=== PATIENT | male | born 1940 | race African-American/Black ===

== ENCOUNTER 2017-11-21 09:55 | Observation (INO) | payer OTHER, MEDICARE ==
--- NOTE | 2017-11-21 10:39 | PDOC ---
History of Present Illness - General Chief Complaint: Chest Pain Stated Complaint: SOB History Source: Patient Exam Limitations: No Limitations - History of Present Illness Initial Comments: 11/21/17 13:06 HPI: This 77-year-old male was brought in by his daughter. She went to go visit her at length parents and he stated that he has had chest pain. She also noticed that he's been noncompliant on taking his medications on and off for the last 2 weeks. The patient lives with his who is wheelchair-bound. He is extremely hard of hearing. When questioned about taking his medications there is some difficulty in returning conversation. He is a poor historian. Daughter states that this is typical for her father. She believes is because he is ignoring her and because of heart hearing. During conversation it is questionable if this is a new onset of mild dementia. There has been no new signs of acute distress. 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 Pt has not been in contact with people who have traveled out of the country, in contact with people who have been ill with fever, n, v, d. SH: smoking use: NONE illicit drug use: NONE alcohol use: NONE Lives with at home, has a daughter that lives in [place] PSH: 2 cardiac stents, CABG 3 Home med use noted on NOV Allergies: NKA Immunizations: PCP: Dr. Caruso Past History - Past Medical History Allergies/Adverse Reactions: Allergies Allergy/AdvReac Type Severity Reaction Status Date / Time No Known Allergies Allergy Verified 11/21/17 10:03 Home Medications: Ambulatory Orders Aspirin 81 mg PO DAILY 03/19/13 Atorvastatin Ca [Lipitor] 40 mg PO HS 03/19/13 Lisinopril [Prinivil] 10 mg PO DAILY 03/19/13 Metoprolol Succinate [Toprol XL -] 25 mg PO BID 03/19/13 Ranitidine [Zantac -] 150 mg PO BID 03/19/13 Clopidogrel Bisulfate [Plavix -] 75 mg PO DAILY 06/07/16 Cardiac Disorders: Yes (carotid "blockage", CABG x3) CVA: Yes (10/2012; residual r arm weakness) COPD: Yes HTN: Yes Hypercholesterolemia: Yes - Surgical History Abdominal Surgery: Yes (PEG tube W/REMOVAL) Cardiac Surgery: Yes (CABG x3;) Neurologic Surgery: Yes (CAROTID STENTS X 2 02/13) - Suicide/Smoking/Psychosocial Hx Smoking Status: Yes Smoking History: Former smoker Have you smoked in the past 12 months: No Number of Cigarettes Smoked Daily: 0 If you are a former smoker, when did you quit?: over 20 years ago Information on smoking cessation initiated: No 'Breaking Loose' booklet given: 06/08/16 Hx Alcohol Use: No Drug/Substance Use Hx: No Substance Use Type: None Hx Substance Use Treatment: No Review of Systems - Review of Systems Able to Perform ROS?: No (General statement: ) Comments:: 11/21/17 13:14 General statement: Patient is a poor historian and this is a difficult ROS to achieve. He does state that he has some chest pain now Skin: Neg for lesions, rash, bruising. Respiratory: Neg SOB or difficulty in breathing Cardiac: + chest pain GI: Neg pain, n/v Neuro: Neg for LOC, weakness, questionable onset of dementia Allergies: Neg for allergies *Physical Exam - Vital Signs Last Vital Signs Temp Pulse Resp BP Pulse Ox 98.3 F 72 19 153/62 97 11/21/17 10:03 11/21/17 10:03 11/21/17 10:03 11/21/17 10:03 11/21/17 10:03 11/21/17 13:15 General Appearance: This 77 yr old male with c/o chest pain appears elderly and poor historian V/S: hemodynamically stable, afebrile Skin: WNL of pt's skin color, no signs of pallor, mottling, cyanosis Head:symmetrical ungs: Chest symmetry equal. Cap refill <3 seconds. Lung sounds clear Cardiac: PMI at R 4MCL space, pos S1 and S2, regular rate. Abdomen: Soft, round, nontender : Not observed Muscularskeletal: appears to not move much and no edema +PMS Neuro: Hard of hearing and some conversation when spoken to but at times does not make sense, not sure if it's not hearring correctly or due to senile? ED Treatment Course - LABORATORY CBC & Chemistry Diagram: 11/21/17 11:42 11/21/17 11:42 Medical Decision Making - Medical Decision Making 11/21/17 13:22 Pt seen and examined with daughter at bedside. She is stating she went to her father's house to drop off food and found him to have chest pain. She also noted he was not taking any of his meds such as plavix. Pt work up included. -lab -EKG -Cardiac work up - UA -CXR 11/21/17 13:26 Laboratory Tests 11/21/17 11/21/17 11:42 11:42 WBC 4.8 D Hgb 12.1 D Hct 36.4 Plt Count 177 Sodium 142 Potassium 3.7 Chloride 104 Carbon Dioxide 29 Anion Gap 9 BUN 14 Creatinine 0.9 Random Glucose 95 D Troponin I 0.02 Pt troponin is negative, Chest pain remains, due to pt significant hx, will admit pt to hospitalist for obs for chest pain work up *DC/Admit/Observation/Transfer Diagnosis at time of Disposition: Chest pain Qualifiers: Chest pain type: other chest pain Qualified Code(s): R07.89 - Other chest pain ; R07.8 - Other chest pain - Discharge Dispostion Condition at time of disposition: Guarded Admit: Yes - Referrals Referrals: Dago Caruso MD [Primary Care Provider] - - Patient Instructions - Post Discharge Activity
[2017-11-21 11:48] LABS: BASO % 0.9 % (0-2.0); EOS % 5.4 % (0-4.5); HEMATOCRIT 36.4 % (35.4-49); HEMOGLOBIN 12.1 GM/dL (11.7-16.9); LYMPH % 19.6 % (8-40); MCH 28.5 pg (25.7-33.7); MCHC 33.1 g/dl (32.0-35.9); MEAN CELL VOLUME 86.2 fl (80-96); MEAN PLT VOLUME 7.7 fl (7.5-11.1); MONO % 10.4 % (3.8-10.2); NEUT % 63.7 % (42.8-82.8); PLATELET COUNT 177 K/MM3 (134-434); RBC 4.23 M/mm3 (4.00-5.60); RDW 14.5 % (11.9-15.9); WHITE BLOOD COUNT 4.8 K/mm3 (4.0-10.0)
--- NOTE | 2017-11-21 11:54 | EKG ---
Test Reason : Blood Pressure : / mmHG Vent. Rate : 085 BPM Atrial Rate : 085 BPM P-R Int : 150 ms QRS Dur : 110 ms QT Int : 398 ms P-R-T Axes : 082 -58 080 degrees QTc Int : 473 ms SINUS RHYTHM WITH SINUS ARRHYTHMIA WITH FREQUENT PREMATURE VENTRICULAR COMPLEXES INCOMPLETE RIGHT BUNDLE BRANCH BLOCK LEFT ANTERIOR FASCICULAR BLOCK ANTEROSEPTAL INFARCT (CITED ON OR BEFORE 19-MAR-2013) ABNORMAL ECG WHEN COMPARED WITH ECG OF 07-JUN-2016 16:55, PREMATURE VENTRICULAR COMPLEXES ARE NOW PRESENT VENT. RATE HAS INCREASED BY 34 BPM Confirmed by LILO NIEVES, JULIANO ([id number]) on 11/21/2017 11:54:09 AM Referred By: Confirmed By:JULIANO NAGY MD
[2017-11-21 11:55] LABS: URINE APPEARANCE CLEAR; URINE BILIRUBIN NEGATIVE (NEGATIVE); URINE BLOOD NEGATIVE (NEGATIVE); URINE COLOR YELLOW; URINE GLUCOSE (UA) NEGATIVE (NEGATIVE); URINE KETONE NEGATIVE (NEGATIVE); URINE LEUK ESTERASE NEGATIVE (NEGATIVE); URINE NITRITE NEGATIVE (NEGATIVE); URINE PROTEIN NEGATIVE (NEGATIVE)
[2017-11-21 12:13] LABS: ALBUMIN 3.6 g/dl (3.4-5.0); ANION GAP 9 (8-16); BILIRUBIN,TOTAL 0.9 mg/dL (0.2-1.0); BLOOD UREA NITROGEN 14 mg/dL (7-18); CALCIUM 8.7 mg/dL (8.5-10.1); CHLORIDE 104 mmol/L (98-107); CO2 29 mmol/L (21-32); CREATININE 0.9 mg/dL (0.7-1.3); GLUCOSE,RANDOM 95 mg/dL (74-106); POTASSIUM 3.7 mmol/L (3.5-5.1); SGPT/ALT 20 U/L (12-78); SODIUM 142 mmol/L (136-145); TOT PROT 6.4 g/dl (6.4-8.2)
[2017-11-21 12:17] LABS: ALK PHOS 66 U/L (45-117); SGOT/AST 22 U/L (15-37)
[2017-11-21] MEDS ORDERED: ATORVASTATIN CA 40 MG TABLET (FP) PO ONE (13:28)
[2017-11-21] MEDS ORDERED: LISINOPRIL 10 MG TABLET (FP) PO ONE (13:28)
[2017-11-21] MEDS ORDERED: ASPIRIN 325 MG ENTERIC COATED TABLET (FP) PO ONE (13:28)
[2017-11-21] MEDS ORDERED: CLOPIDOGREL BISULFATE 75 MG TABLET (FP) PO ONE (13:28)
[2017-11-21] MEDS ORDERED: ATORVASTATIN CA 40 MG TABLET (FP) ONE (14:49)
[2017-11-21] MEDS ORDERED: ASPIRIN 325 MG ENTERIC COATED TABLET (FP) ONE (14:49)
[2017-11-21] MEDS ORDERED: LISINOPRIL 5 MG TABLET (FP) ONE (14:51)
[2017-11-21] MEDS ORDERED: CLOPIDOGREL BISULFATE 75 MG TABLET (FP) ONE (14:51)
--- NOTE | 2017-11-21 15:10 | HP ---
CHIEF COMPLAINT: chest pain PCP: Dr. Caruso HISTORY OF PRESENT ILLNESS: 77 y/o M w/PMH of [place] s/p CABG and stents (3 years ago), carotid artery stenosis , CVA w/some R sided weakness (2012), COPD, HTN, HLD presents to the ER for chest pain. Pt is somewhat poor historian. Pt was brought in by daughter who came to check in on him because he has not taken any of his medications for the last "couple of weeks" w/o reason and because he has been having chest pain for the past 2-3 days. Chest pain is rated as a 1/10 and is located in R upper chest wall near clavicle and radiates to R side of head (temporal area) and AGUILERA is rated as 1/10, pain is intermittent, no aggravating or provoking factors, no alleviating factors. Pain does not radiate to arms or jaw but the pain is associated with nausea but pt has not vomited. Pain is not worsened with exertion or walking. He states he's had pains similar to this in the past. He reports having a chronic cough with white sputum that is unchanged. He denies vomiting, fevers, chills, SOB, abd pain, change in urinary or bowel habits, LE swelling, visual changes, hearing changes, sick contacts, recent travel. ER course was notable for: (1) ASA, CXR, EKG (2) (3) Recent Travel: denies PAST MEDICAL HISTORY: [place] s/p CABG and stents (3 years ago), carotid artery stenosis, CVA w/some R sided weakness (2012), COPD, HTN, HLD PAST SURGICAL HISTORY: CABG and stent placement 3 years ago Social History: Smoking: Former tobacco pipe smoker (quit 20+ years ago). No cigarette smoking history Alcohol: denies Drugs: denies Family History: n-c Allergies No Known Allergies Allergy (Verified 11/21/17 10:03) HOME MEDICATIONS: Home Medications Medication Instructions Recorded Aspirin 81 mg PO DAILY 03/19/13 Atorvastatin Ca [Lipitor] 40 mg PO HS 03/19/13 Lisinopril [Prinivil] 10 mg PO DAILY 03/19/13 Metoprolol Succinate [Toprol XL -] 25 mg PO BID 03/19/13 Ranitidine [Zantac -] 150 mg PO BID 07/17/13 Clopidogrel Bisulfate [Plavix -] 75 mg PO DAILY 06/07/16 REVIEW OF SYSTEMS CONSTITUTIONAL: Absent: fever, chills HEENT: Absent: hearing changes, visual changes CARDIOVASCULAR: +chest pain Absent: lightheadedness, peripheral edema RESPIRATORY: +chronic cough Absent: shortness of breath GASTROINTESTINAL: +nausea Absent: abdominal pain, vomiting, diarrhea, constipation GENITOURINARY: Absent: dysuria NEUROLOGIC: +headache (radiating from R chest wall) Absent: headache PHYSICAL EXAMINATION Vital Signs - 24 hr 11/21/17 11/21/17 10:03 10:30 Temperature 98.3 F Pulse Rate 72 Respiratory 19 Rate Blood Pressure 153/62 O2 Sat by Pulse 97 98 Oximetry (%) GENERAL: Awake, alert, and fully oriented (person, place, and time by president) , in no acute distress. EYES: extraocular movements intact, sclera anicteric, conjunctiva clear. EARS, NOSE, THROAT: Poor dentition. Moist mucous membranes. NECK: Normal range of motion, supple LUNGS: Diminished breath sounds. No wheezing HEART: Distant heart sounds. Regular rate and rhythm, normal S1 and S2. ABDOMEN: Soft, nontender, not distended, normoactive bowel sounds. MUSCULOSKELETAL: 4/5 RUE strength. 5/5 LUE strength. 5/5 b/l LE strength. LOWER EXTREMITIES: warm, well-perfused. No calf tenderness. No peripheral edema. NEUROLOGICAL: Normal speech. Sensation to light touch intact and equal on face, b/l UE, b/l LE PSYCHIATRIC: Cooperative. Good eye contact. Appropriate mood and affect. SKIN: Warm, extremely dry Laboratory Results - last 24 hr 11/21/17 11/21/17 11/21/17 11:42 11:42 11:43 WBC 4.8 D RBC 4.23 Hgb 12.1 D Hct 36.4 MCV 86.2 MCH 28.5 MCHC 33.1 RDW 14.5 Plt Count 177 MPV 7.7 Neutrophils % 63.7 Lymphocytes % 19.6 Monocytes % 10.4 H Eosinophils % 5.4 H Basophils % 0.9 Sodium 142 Potassium 3.7 Chloride 104 Carbon Dioxide 29 Anion Gap 9 BUN 14 Creatinine 0.9 Creat Clearance w eGFR > 60 Random Glucose 95 D Calcium 8.7 Total Bilirubin 0.9 D AST 22 ALT 20 D Alkaline Phosphatase 66 Creatine Kinase 216 Creatine Kinase Index 0.8 CK-MB (CK-2) 1.828 Troponin I 0.02 Total Protein 6.4 Albumin 3.6 Urine Color Yellow Urine Appearance Clear Urine pH 5.0 Ur Specific [place] 1.015 Urine Protein Negative Urine Glucose (UA) Negative Urine Ketones Negative Urine Blood Negative Urine Nitrite Negative Urine Bilirubin Negative Urine Urobilinogen 2.0 Ur Leukocyte Esterase Negative CXR: No acute pathology EKG: Sinus rhythm w/PVCs, incomplete RBBB, Left anterior fasicular block. Ventricular rate 85 bpm. QTc 473 ms Active Medications Acetaminophen (Tylenol -) 650 mg PO Q6H PRN PRN Reason: PAIN Aspirin (Asa -) 81 mg PO DAILY MARANDA Atorvastatin Calcium (Lipitor -) 40 mg PO HS MARANDA Clopidogrel Bisulfate (Plavix -) 75 mg PO DAILY MARANDA Heparin Sodium (Porcine) (Heparin -) 5,000 unit SQ Q8H-IV MARANDA Lisinopril (Prinivil) 10 mg PO DAILY MARANDA Metoprolol Succinate (Toprol Xl -) 25 mg PO BID MARANDA ASSESSMENT/PLAN: 77 y/o M w/PMH of [place] s/p CABG and stents (3 years ago), carotid artery stenosis , CVA w/some R sided weakness (2012), COPD, HTN, HLD presents to the ER for chest pain. Under obs to r/o ACS. -Atypical chest pain -trend trops, first trop neg -echo -c/w asa 81 mg qd -ekg if pt has new or worsened chest pain -tylenol 650 mg po q6h prn for pain -check lipid profile, tsh, mg -HTN -c/w lisinopril 10 mg, toprol xl 25 mg bid (starting tomorrow) -CAD -c/w plavix, asa -HLD -c/w lipitor 40 mg po qhs -DVT ppx -Heparin 5000 units sq q8h -FEN -No fluids at this time -monitor electrolytes -Cardiac diet -Dispo: Obs/tele Visit type - Emergency Visit Emergency Visit: Yes ED Registration Date: 11/21/17 Care time: The patient presented to the Emergency Department on the above date and was hospitalized for further evaluation of their emergent condition. - New Patient This patient is new to me today: Yes Date on this admission: 11/21/17 - Critical Care Critical Care patient: No Hospitalist Screening - Colonoscopy Questionnaire Colonoscopy Questionnaire: Colonoscopy Questionnaire - Patient: 50 - 75 years old and never had a screening colonoscopy: Unknown History of colon or rectal polyps, or CA: Unknown History of IBD, Crohn's disease or UC: Unknown History of abdominal radiation therapy as a child: Unknown - Relative: 1 with colon or rectal CA, or polyps at age 60 or younger: Unknown Colon or rectal CA diagnosed at age 45 or younger: Unknown Multiple relatives with colon or rectal CA: Unknown - Outcome: Screening Result: Negative Screen
[2017-11-21] MEDS ORDERED: ACETAMINOPHEN 325 MG TABLET (FP) PO PRN (15:35)
--- NOTE | 2017-11-21 17:23 | PN ---
Teaching Attending Note Name of Resident: Sheldon Pemberton ATTENDING PHYSICIAN STATEMENT I saw and evaluated the patient. I reviewed the resident's note and discussed the case with the resident. I agree with the resident's findings and plan as documented. SUBJECTIVE:77 y/o M w/PMH of [place] s/p CABG and stents (3 years ago), carotid artery stenosis, CVA w/some R sided weakness (2012), COPD, HTN, HLD presents to the ER for chest pain. pt is a poor historian. states started off as AGUILERA that radiated to his chest this AM. can not elicit any aggravating/alleviating factors. admits to not being complaint with home medications but can not explain why he does not want to take them. Per report seems there was a few weeks of medications. pain is now relieved. also alicits to "significant weight loss'. unable to clarify amount just that it was a lot. has hx of smoking quit 20 years ago. never had colonoscopy or other screening tests OBJECTIVE: Last Vital Signs Temp Pulse Resp BP Pulse Ox 98.3 F 91 H 20 151/88 98 11/21/17 10:03 11/21/17 15:00 11/21/17 15:00 11/21/17 15:00 11/21/17 15:00 General NAD, thin, frail male with bitemporal wasting. prominent clavicles HEENT no temporal tenderness, no prominent vasculature noted CV S1 S2 RRR no chest wall tenderness lungs CTA B/L no wheezing/rales/rhonchi extremities no pedal edema +skin tenting ASSESSMENT AND PLAN: 77 y/o M w/PMH of [place] s/p CABG and stents (3 years ago), carotid artery stenosis , CVA w/some R sided weakness (2012), COPD, HTN, HLD presents to the ER for chest pain. 1. CP- tele observation. low suspicion for ACS. continuous cardiac monitoring. trend cardiac enzymes and EKG Q6H. check echo. cont asa/plavix. cardio consulted. 2. Dehydration- clinically pt appears dehydrated although does not appear in labs. will give 1L NS slowly. 3. Significant weight loss- reports weight loss. BMI 17. physical appearance looks malnourished. Albumin is normal. would recommend cancer screening workup as outpatient. low dose CT and colonoscopy 4. Carotid artery stenosis 5. CVA 6. HTN- above goal. has not taken meds in some time. will re-start home medication 7. DVT ppx- EAM 8. Counselled pt on need for medication compliance. verbalized understanding
[2017-11-21] MEDS ORDERED: SODIUM CHLORIDE 1,000 ML IV SCH (17:30)
[2017-11-21 17:43] VITALS: BMI 17.6
[2017-11-21] MEDS: HEPARIN NA (PORCINE) 5,000 UNITS/ML 1ML VIAL SQ SCH (21:48)
[2017-11-21] MEDS ORDERED: ATORVASTATIN CA 40 MG TABLET (FP) PO SCH (22:00)
[2017-11-22] MEDS: HEPARIN NA (PORCINE) 5,000 UNITS/ML 1ML VIAL SQ SCH ×2 (05:43→13:56)
[2017-11-22 08:00] LABS: HEMATOCRIT 40.9 % (35.4-49); HEMOGLOBIN 13.7 GM/dL (11.7-16.9); MCH 28.9 pg (25.7-33.7); MCHC 33.4 g/dl (32.0-35.9); MEAN CELL VOLUME 86.5 fl (80-96); MEAN PLT VOLUME 8.3 fl (7.5-11.1); PLATELET COUNT 188 K/MM3 (134-434); RBC 4.73 M/mm3 (4.00-5.60); RDW 14.8 % (11.9-15.9)
[2017-11-22 08:22] LABS: CHLORIDE 107 mmol/L (98-107); POTASSIUM 4.1 mmol/L (3.5-5.1); SODIUM 142 mmol/L (136-145)
[2017-11-22 08:36] LABS: ANION GAP 11 (8-16); BLOOD UREA NITROGEN 12 mg/dL (7-18); CALCIUM 8.3 mg/dL (8.5-10.1); CHOLESTEROL 76 mg/dL (50-200); CO2 24 mmol/L (21-32); CREATININE 0.8 mg/dL (0.7-1.3); GLUCOSE,RANDOM 70 mg/dL (74-106); MAGNESIUM 2.3 mg/dL (1.8-2.4); PHOSPHOROUS 3.8 mg/dL (2.5-4.9); TRIGLYCERIDES 32 mg/dL (35-160)
[2017-11-22 08:51] LABS: HDL CHOLESTEROL 38 mg/dL (40-60); LDL CHOLESTEROL (ONLY SJRH) 41 mg/dL (5-100)
[2017-11-22] MEDS ORDERED: metoPROLOL SUCCINATE 25 MG TAB.SR.24H (FP) PO SCH (10:00)
[2017-11-22] MEDS ORDERED: ASPIRIN 81 MG CHEWABLE TABLETS PO SCH (10:00)
[2017-11-22] MEDS ORDERED: LISINOPRIL 10 MG TABLET (FP) PO SCH (10:00)
[2017-11-22] MEDS ORDERED: CLOPIDOGREL BISULFATE 75 MG TABLET (FP) PO SCH (10:00)
--- NOTE | 2017-11-22 10:57 | CON.CARD ---
Consult Consult Specialty:: Cardiology Referred by:: Hospitalist Medicine Reason for Consultation:: Chest pain - History of Present Illness Chief Complaint: Chest pain History of Present Illness: 7 y/o M w/PMH of [place] s/p CABG and stents (3 years ago), carotid artery stenosis s /p stent, CVA w/some R sided weakness (2012), COPD, HTN, HLD presents to the ER for atypical non-exertional chest pain. pt is a poor historian. states started off as right-sided AGUILERA that radiated to right upper chest spontaneously resolved. can not elicit any aggravating/alleviating factors. admits to not being complaint with home medications but can not explain why he he is non- compliant. has hx of smoking quit 20 years ago. never had colonoscopy or other screening tests - History Source History Provided By: Medical Record Limitations to Obtaining History: Poor Historian - Past Medical History Cardio/Vascular: Yes: CAD, HTN, Hyperlipdemia Pulmonary: Yes: COPD - Past Surgical History Past Surgical History: Yes: CABG, Stent - Alcohol/Substance Use Hx Alcohol Use: No - Smoking History Smoking history: Former smoker Have you smoked in the past 12 months: No Aproximately how many cigarettes per day: 0 If you are a former smoker, when did you quit?: over 20 years ago Home Medications - Allergies Allergies/Adverse Reactions: Allergies Allergy/AdvReac Type Severity Reaction Status Date / Time No Known Allergies Allergy Verified 11/21/17 10:03 - Home Medications Home Medications: Ambulatory Orders Aspirin 81 mg PO DAILY 03/19/13 Atorvastatin Ca [Lipitor] 40 mg PO HS 03/19/13 Lisinopril [Prinivil] 10 mg PO DAILY 03/19/13 Metoprolol Succinate [Toprol XL -] 25 mg PO BID 03/19/13 Ranitidine [Zantac -] 150 mg PO BID 03/19/13 Clopidogrel Bisulfate [Plavix -] 75 mg PO DAILY 06/07/16 Review of Systems - Review of Systems Cardiovascular: reports: Chest Pain Vital Signs: Vital Signs Temperature 97.5 F L 11/22/17 05:32 Pulse Rate 87 11/22/17 05:32 Respiratory Rate 18 11/22/17 05:32 Blood Pressure 158/84 11/22/17 05:32 O2 Sat by Pulse Oximetry (%) 96 11/21/17 21:00 Constitutional: Yes: No Distress, Calm Neck: Yes: Supple Respiratory: Yes: Regular, CTA Bilaterally Gastrointestinal: Yes: Normal Bowel Sounds, Soft Cardiovascular: Yes: Regular Rate and Rhythm JVD: No Carotid Bruit: No Heart Sounds: Yes: S1, S2 Edema: No - Other Data Labs, Other Data: CBC, BMP 11/22/17 06:55 11/22/17 06:55 Troponin, BNP 11/21/17 11/21/17 11/21/17 11:42 19:00 23:40 Troponin I 0.02 0.03 D 0.03 Troponin, BNP 11/21/17 11/21/17 11/21/17 11:42 19:00 23:40 Troponin I 0.02 0.03 D 0.03 NSR @ 85 IRBBB, frequent fusion beat, LAFB, PRWP Problem List - Problems (1) S/P CABG (coronary artery bypass graft) Code(s): Z95.1 - PRESENCE OF AORTOCORONARY BYPASS GRAFT (2) S/P coronary artery stent placement Code(s): Z95.5 - PRESENCE OF CORONARY ANGIOPLASTY IMPLANT AND GRAFT (3) Medication noncompliance due to cognitive impairment Code(s): Z91.14 - PATIENT'S OTHER NONCOMPLIANCE WITH MEDICATION REGIMEN (4) CAD (coronary artery disease) Code(s): I25.10 - ATHSCL HEART DISEASE OF [place] CORONARY ARTERY W/O ANG PCTRS Qualifiers: Coronary Disease-Associated Artery/Lesion type: [place] artery [place] vs. transplanted heart: [place] heart Associated angina: without angina Qualified Code(s): I25.10 - Atherosclerotic heart disease of [place] coronary artery without angina pectoris (5) COPD (chronic obstructive pulmonary disease) Code(s): J44.9 - CHRONIC OBSTRUCTIVE PULMONARY DISEASE, UNSPECIFIED Qualifiers: COPD type: unspecified COPD Qualified Code(s): J44.9 - Chronic obstructive pulmonary disease, unspecified (6) HLD (hyperlipidemia) Code(s): E78.5 - HYPERLIPIDEMIA, UNSPECIFIED (7) HTN (hypertension) Code(s): I10 - ESSENTIAL (PRIMARY) HYPERTENSION Qualifiers: Hypertension type: essential hypertension Qualified Code(s): I10 - Essential (primary) hypertension (8) History of stroke with residual deficit Code(s): I69.30 - UNSPECIFIED SEQUELAE OF CEREBRAL INFARCTION (9) Atypical chest pain Code(s): R07.89 - OTHER CHEST PAIN Assessment/Plan ASSESSMENT: 1. Chest pain syndrome with atypical features 2. CAD s/p [place], CABG, PCI (stent), angina pectoris 3. Carotid stenosis post stent 4. Stroke with w/some R sided weakness (2012) 5. COPD 6. HTN 7. Hyperlipidemia 8. Medication noncompliance Plan: 1. Ruled out for [place], f/u echocardiogram already ordered 2. Resume home meds including ASA 81 qd, Lipitor 20 qhs, lisinopril 10 qd, Lopressor 25 bid, Plavix 75 qd 3. Counselled pt on need for medication compliance. verbalized understanding 4. Anticipate d/c after review of echo results 5. Thank you for consultative opportunity
--- NOTE | 2017-11-22 13:08 | PN ---
Teaching Attending Note Name of Resident: Irasema Abdalla ATTENDING PHYSICIAN STATEMENT I saw and evaluated the patient. I reviewed the resident's note and discussed the case with the resident. I agree with the resident's findings and plan as documented. SUBJECTIVE:no more episodes of CP. denies fever, chills, N?V/C/D OBJECTIVE: Last Vital Signs Temp Pulse Resp BP Pulse Ox 97.5 F L 87 18 158/84 96 11/22/17 05:32 11/22/17 05:32 11/22/17 05:32 11/22/17 05:32 11/21/17 21:00 General NAD, thin, frail male with bitemporal wasting. prominent clavicles HEENT no temporal tenderness, no prominent vasculature noted CV S1 S2 RRR no chest wall tenderness lungs CTA B/L no wheezing/rales/rhonchi extremities no pedal edema ASSESSMENT AND PLAN: 77 y/o M w/PMH of [place] s/p CABG and stents (3 years ago), carotid artery stenosis , CVA w/some R sided weakness (2012), COPD, HTN, HLD presents to the ER for chest pain. 1. CP-no repeat episodes. no events on tele monitor. cardiac enzymes neg x3. echo pending. cardio evaluated. cont asa/plavix. 2. Dehydration- improved. d/c IVF 3. Significant weight loss- reports weight loss. BMI 17. more alert today and appears improved. would recommend regular screening as outpatient by PMD> 4. Carotid artery stenosis 5. CVA 6. HTN- improved. cont home medications. counselled importance of medication compliance. 7. DVT ppx- EAM 8.d/c home pending echo
[2017-11-22 14:02] VITALS: BP 143/86; PULSE 91; TEMP 98.5
--- NOTE | 2017-11-22 17:09 | DS ---
Physical Exam: SUBJECTIVE: Patient seen and examined OBJECTIVE: Vital Signs Period Temp Pulse Resp BP Sys/[place] Pulse Ox Last 24 Hr 97.5 F-98.9 F 82-96 18-20 126-179/72-92 96-96 PHYSICAL EXAM GENERAL: The patient is awake, alert, and fully oriented, in no acute distress. HEAD: Normal with no signs of trauma. EYES: PERRL, extraocular movements intact, sclera anicteric, conjunctiva clear. ENT: Ears normal, nares patent, oropharynx clear without exudates, moist mucous membranes. NECK: Trachea midline, full range of motion, supple. LUNGS: Breath sounds equal, clear to auscultation bilaterally, no wheezes, no crackles, no accessory muscle use. HEART: Regular rate and rhythm, S1, S2 without murmur, rub or gallop. ABDOMEN: Soft, nontender, nondistended, normoactive bowel sounds, no guarding, no rebound, no hepatosplenomegaly, no masses. EXTREMITIES: 2+ pulses, warm, well-perfused, no edema. NEUROLOGICAL: Cranial nerves II through XII grossly intact. Normal speech, gait not observed. PSYCH: Normal mood, normal affect. SKIN: Warm, dry, normal turgor, no rashes or lesions noted. LABS Laboratory Results - last 24 hr 11/21/17 11/21/17 11/22/17 19:00 23:40 06:55 WBC 8.0 D RBC 4.73 Hgb 13.7 D Hct 40.9 MCV 86.5 MCH 28.9 MCHC 33.4 RDW 14.8 Plt Count 188 MPV 8.3 Sodium Potassium Chloride Carbon Dioxide Anion Gap BUN Creatinine Random Glucose Calcium Phosphorus Magnesium Creatine Kinase 306 333 H Creatine Kinase Index 0.7 0.8 CK-MB (CK-2) 2.388 2.738 Troponin I 0.03 D 0.03 Triglycerides Cholesterol Total LDL Cholesterol HDL Cholesterol 11/22/17 06:55 WBC RBC Hgb Hct MCV MCH MCHC RDW Plt Count MPV Sodium 142 Potassium 4.1 Chloride 107 Carbon Dioxide 24 Anion Gap 11 BUN 12 Creatinine 0.8 Random Glucose 70 L D Calcium 8.3 L Phosphorus 3.8 Magnesium 2.3 D Creatine Kinase Creatine Kinase Index CK-MB (CK-2) Troponin I Triglycerides 32 L D Cholesterol 76 Total LDL Cholesterol 41 HDL Cholesterol 38 L HOSPITAL COURSE: Date of Admission:11/21/17 Date of Discharge: 11/22/17 Discharge Summary Reason For Visit: CHEST PAIN Current Active Problems Atypical chest pain (Acute) Chest pain (Acute) Medication noncompliance due to cognitive impairment (Acute) S/P coronary artery stent placement (Acute) S/P CABG (coronary artery bypass graft) (Chronic) Condition: Stable - Instructions Diet, Activity, Other Instructions: You were experiencing chest pain and observed overnight in the hospital. An ultrasound of your heart was performed that showed some decreased pumping of your heart, but no significant changes from your previous study that you had a few years ago. Recommendations: -You would benefit from Visiting Nurse Services to help with your medications and nutrition. A referral for VNS services was placed on your behalf. -You should keep a heart healthy diet that includes low salt and high fiber. -You can resume your regular daily activities. Medications: It is very important that you take your medications regularly as prescribed, including the following: -Ranitidine 150mg two times per day -Aspirin 81mg daily -Atorvastatin (Lipitor) 40mg at bedtime -Lisinopril 10mg daily -Metoprolol Succinate (Toprol XL) 25mg two times per day, ideally 12 hours apart -Clopidogrel (Plavix) 75mg daily Follow-up: -You have appointment on November [address] Todd Garcia. Please let him know your were recently in the hospital. Discuss with him about doing a cancer screening colonoscopy or other screening processes. -Continue to see Dr. Marvin (lung doctor) and Dr. Dennis (heart doctor) as needed. Please return to the Emergency Room if you have worsening chest pain or any new or concerning symptoms. Referrals: Todd Garcia MD [Staff Physician] - 11/30/17 Disposition: HOME - Home Medications Comprehensive Discharge Medication List: Ambulatory Orders Ranitidine [Zantac -] 150 mg PO BID 03/19/13 Aspirin 81 mg PO DAILY #30 tab.chew 11/22/17 Atorvastatin Ca [Lipitor] 40 mg PO HS #30 tablet 11/22/17 Clopidogrel Bisulfate [Plavix -] 75 mg PO DAILY #30 tablet 11/22/17 Lisinopril [Prinivil] 10 mg PO DAILY #60 tablet 11/22/17 Metoprolol Succinate [Toprol XL -] 25 mg PO BID #60 tab.sr.24h 11/22/17
== END 2017-11-22 17:14 | disposition home or self-care (01) ==
LOC: JER 09:55 → JERBED 14:10 → J4S 15:55
PROVIDERS: ADMIT Internal Medicine; ATTEND Internal Medicine
PROC: 3E033GC Introduction of Other Therapeutic Substance into Peripheral Vein, Percutaneous Approach (ICD-10-PCS; principal; 2017-11-21)
PROC: 3E0337Z Introduction of Electrolytic and Water Balance Substance into Peripheral Vein, Percutaneous Approach (ICD-10-PCS; 2017-11-21)
DX: R07.89 Other chest pain (principal); I10 Essential (primary) hypertension; I25.10 Atherosclerotic heart disease of native coronary artery without angina pectoris; I65.29 Occlusion and stenosis of unspecified carotid artery; I25.2 Old myocardial infarction; I69.331 Monoplegia of upper limb following cerebral infarction affecting right dominant side; R63.4 Abnormal weight loss; E78.5 Hyperlipidemia, unspecified; E86.0 Dehydration; J44.9 Chronic obstructive pulmonary disease, unspecified; Z95.1 Presence of aortocoronary bypass graft; Z95.828 Presence of other vascular implants and grafts; Z87.891 Personal history of nicotine dependence; Z79.82 Long term (current) use of aspirin; Z68.1 Body mass index [BMI] 19.9 or less, adult; Z95.5 Presence of coronary angioplasty implant and graft; Z91.14 Patient's other noncompliance with medication regimen
CPT/HCPCS: 36415; 71045-TC-FY; 80048; 80053; 80061; 81003; 82550; 82553; 83721; 83735; 84100; 84484; 85025; 85027; 93005; 93010; 93306-TC; 96360; 96361; 96372; 97116-GP; 97161-GP; 99284-25; G0378; J1644; J7030

== ENCOUNTER 2019-04-02 19:20 | Inpatient (IN) | payer MEDICARE, OTHER ==
[2019-04-02] MEDS ORDERED: SODIUM CHLORIDE 1,000 ML IV SCH (19:45)
--- NOTE | 2019-04-02 19:58 | PDOC ---
History of Present Illness - General Chief Complaint: CVA/TIA Stated Complaint: CHEST PAIN Time Seen by Provider: 04/02/19 19:31 - History of Present Illness Initial Comments: 04/02/19 20:20 79yo M hx of NH s/p CABG and stents (3 years ago), carotid artery stenosis, CVA w/some residual R sided weakness (2012), COPD, HTN, HLD on Plavix presents frmo home c/o splurred speech and weakness. Pt is poor historian. Pt lives alone and his 2 daughters come visit every day, alternating days, but do not stay there. Pt was last seen normal yesterday. Today daughter arrived at his home at 530pm and found him on the toilet diaphoretic, weak, short of breath, with slurred speech. Daughter states pt told her he didn't feel well. Daughter gave pt nebulizer tx w/o improvement. Daughter states pt has baseline stutter and residual R-sided weakness, but is normally oriented and able to walk and take care of himself. Pt was recently d/c from hospital for COPD exacerbation. Pt states that he started feeling unwell last night. Endorses R-sided body pain ( chest and abdomen), cough, shortness of breath, N/V, chills, CP, AGUILERA, and diarrhea. Denies new numbness/tingling, new weakness, dysuria, hematuria, blood in stool, recent travel, sick contacts. Past History - Past Medical History Allergies/Adverse Reactions: Allergies Allergy/AdvReac Type Severity Reaction Status Date / Time No Known Allergies Allergy Verified 04/02/19 19:24 Home Medications: Ambulatory Orders Ranitidine [Zantac -] 150 mg PO BID 03/19/13 Atorvastatin Ca [Lipitor] 40 mg PO HS #30 tablet 11/22/17 Clopidogrel Bisulfate [Plavix -] 75 mg PO DAILY #30 tablet 11/22/17 Lisinopril [Prinivil] 10 mg PO DAILY #60 tablet 11/22/17 Albuterol 2.5/Ipratropium 0.5 [Duoneb -] 1 neb IH QID 04/02/19 Budesonide 1 neb IH DAILY 04/03/19 Ipratropium/Albuterol Sulfate [Iprat-Albut 0.5-3(2.5) mg/3 ml] 3 ml IH Q4HWA 09/21 Cefuroxime Axetil [Ceftin -] 500 mg PO BID #10 tablet 04/04/19 Metoprolol Succinate [Toprol XL -] 50 mg PO BID #60 tab.sr.24h 04/04/19 Polyethylene Glycol 3350 [Miralax 119 gm Btl -] 17 gm PO DAILY #1 bottle Anemia: No Asthma: Yes Cancer: No Cardiac Disorders: Yes (carotid "blockage", CABG x3) CVA: Yes (10/2012; residual r arm weakness) COPD: Yes CHF: No Dementia: No Diabetes: No GI Disorders: No Disorders: No HTN: Yes Hypercholesterolemia: Yes Liver Disease: No Seizures: No Thyroid Disease: No - Surgical History Abdominal Surgery: Yes (PEG tube W/REMOVAL) Appendectomy: No Cardiac Surgery: Yes (CABG x3;) Cholecystectomy: No Lung Surgery: No Neurologic Surgery: Yes (CAROTID STENTS X 2 02/13) Orthopedic Surgery: No - Suicide/Smoking/Psychosocial Hx Smoking Status: Yes Smoking History: Former smoker Have you smoked in the past 12 months: No Number of Cigarettes Smoked Daily: 0 If you are a former smoker, when did you quit?: over 20 years ago Information on smoking cessation initiated: No 'Breaking Loose' booklet given: 06/08/16 Hx Alcohol Use: No Drug/Substance Use Hx: No Substance Use Type: None Hx Substance Use Treatment: No Review of Systems - Review of Systems Comments:: 04/03/19 18:51 Constitutional: Positive for chills, fever, fatigue. HENT: Negative for sore throat, rhinorrhea, congestion. Eyes: Negative for visual disturbance. Respiratory: Positive for shortness of breath, cough. Negative for wheezing. Cardiovascular: Positive for right-sided chest pain. Negative for palpitations, and leg swelling. Gastrointestinal: Positive for right-sided abdominal pain, diarrhea, N/V. Negative for blood in stool, constipation. Genitourinary: Negative for dysuria, flank pain, and hematuria. Musculoskeletal: Negative for myalgias, back pain, and neck pain. Skin: Negative for rash. Neurological: Positive for right-sided weakness (chronic) and slurred speech ( resolved). Negative for light-headedness, dizziness, syncope, numbness and headaches. Psychiatric/Behavioral: Negative for behavioral problems and confusion. *Physical Exam - Vital Signs Last Vital Signs Temp Pulse Resp BP Pulse Ox 99 F 107 H 20 171/84 H 97 04/02/19 19:24 04/02/19 19:24 04/02/19 19:24 04/02/19 19:24 04/02/19 19:24 - Physical Exam Comments: 04/03/19 18:54 Gen: Alert, NAD, uncomfortable-appearing, breathing rapidly HEENT: PERRL, EOMI, MMM, NCAT. No conjunctival pallor. Sclera are non-icteric. Oropharynx is clear. CV: Regular rate and rhythm. No murmurs, rubs, or gallops. PULM: Tachypneic. CTAB, no wheezes, rales, or rhonchi, but difficult to assess due to tachypnea. ABD: soft, NT/ND, no rebound tenderness or guarding, no CVA tenderness. BACK: No TTP of c/t/l-spine. No step-offs or deformities. MSK: No bony deformities. 2+ pulses in all extremities. NEURO: Alert. PERRL. CN 2-12 intact. 5/5 strength in LUE/LLE, 4/5 in RUE/RLE. Sensation to light touch intact in all extremities. No pronator drift. No dysmetria. No dysdiadochokinesia. No abnormal nystagmus. No skew deviation. Normal gait. Oriented to name, birthdate, situation; does not know month or age. 4/5 RUE and RLE strength that pt states is baseline, but still able to hold all extremities raised for 10 seconds. Pt can't read words (daughter states he's practically illiterate), but can repeat words and describe objects and scene on paper. EXTREMITIES: No cyanosis. No clubbing. No edema. No calf tenderness. PSYCH: Normal mood and thought pattern. SKIN: Warm and dry. Normal capillary refill. No rashes. No jaundice. Heart Score/ECG Review - ECG Impressions Comment:: 04/03/19 18:43 Sinus tachycardia with occasional PVCs, 115bpm, incomplete RBBB, T wave inversion/flatting in I/aVL. No significant changes compared to prior EKG . ED Treatment Course - LABORATORY CBC & Chemistry Diagram: 04/04/19 06:57 04/04/19 06:57 Medical Decision Making - Medical Decision Making 79yo M hx of NH s/p CABG and stents (3 years ago), carotid artery stenosis, CVA w/some residual R sided weakness (2012), COPD, HTN, HLD on Plavix presents frmo home c/o splurred speech and weakness. Pt is poor historian. Pt lives alone and his 2 daughters come visit every day, alternating days, but do not stay there. Pt was last seen normal yesterday. Today daughter arrived at his home at 530pm and found him on the toilet diaphoretic, weak, short of breath, with slurred speech. Daughter states pt told her he didn't feel well. Daughter gave pt nebulizer tx w/o improvement. Daughter states pt has baseline stutter and residual R-sided weakness, but is normally oriented and able to walk and take care of himself. Pt was recently d/c from hospital for COPD exacerbation. Pt states that he started feeling unwell last night. Endorses R-sided body pain ( chest and abdomen), cough, shortness of breath, N/V, chills, CP, AGUILERA, and diarrhea. Denies new numbness/tingling, new weakness, dysuria, hematuria, blood in stool, recent travel, sick contacts. Clare Pisano called for slurred speech and initial impression that LKN was 530pm tonight (later determined to be yesterday). NIH score of 2 for not knowing age or month (however pt appears oriented and knows birthdate and other facts). Mild RUE and RLE weakness that pt states is baseline, and still able to hold all extremities raised for 10 seconds. Pt can't read words (daughter states he' s practically illiterate), but can repeat words and describe objects and scene on paper. Temp 101.7, tachy to 100s, tachypneic, 100% O2 on RA, normotensive. Meets sepsis criteria - most likely etiology of sx. Start sepsis workup, IVF, rectal temp, and abx. Cause of sepsis unknown - consider PNA due to cough though lungs clear, UTI though denies dysuria, or possible intrabdominal etiology due to R- sided abdominal pain - evaluate with CXR, UA/UC, and CTAP/chest. Also consider other etiologies of weakness including anemia, metabolic derangements, and cardiac etiologies. -EKG -CXR, CTAP, CT chest -Labs: CBC, CMP, Coags, Cardiac profile, T&S, UA/UC, BC, Lact, VBG -1L IVF (Echo 43.7% 11/22/17, normotensive) -Kyree Chaudhry -Code cardenas: consult neuro -Dispo: adm pending w/u Reviewed CXR, EKG and labs. Of note, WBC 17.6, Lact 0.9, Lipase 532, Amylase 131 , UA negative for UTI. CT chest/AP: no acute findings 04/02/19 22:[address] Wright on phone, he agrees with plan and will see tomorrow. Signed out to admitting team. Tylenol given for fever. Pending CTs. *DC/Admit/Observation/Transfer Diagnosis at time of Disposition: Sepsis - Discharge Dispostion Disposition: VNS/HOME HEALTH CARE Condition at time of disposition: Stable Decision to Admit order: Yes - Referrals - Patient Instructions - Post Discharge Activity
[2019-04-02] MEDS ORDERED: VANCOMYCIN 1 GM in D5W (PRE-DOCKED) 1,000 MG/250 ML IVPB ONE (20:02)
[2019-04-02] MEDS ORDERED: PIPERACILLIN/TAZOB 3.375 GM 3.375 GM in DEXTROSE 5%-WATER - 50 ML IVPB ONE (20:02)
--- NOTE | 2019-04-02 20:42 | PDOC ---
Documentation entered by Ankita Garcia SCRIBE, acting as scribe for Vi Pearson DO. Vi Pearson DO: This documentation has been prepared by the Radha kimball Mackenzie, SCRIBE, under my direction and personally reviewed by me in its entirety. I confirm that the documentation accurately reflects all work, treatment, procedures, and medical decision making performed by me. Attending Attestation - Resident Resident Name: Nirmala Moon - ED Attending Attestation I have performed the following: I have examined & evaluated the patient, The case was reviewed & discussed with the resident, I agree w/resident's findings & plan - HPI HPI: Patient is an 79 year old male with a significant PMH of COPD, HTN, HLD, and CVA w/ residual left sided weakness. Patient's daughter notes around 5PM today she noticed patient was slurring his speech and exhibited diaphoresis, which has since subsided upon presentation in the ED. Patient notes right arm pain and nonspecific abdominal pain. Denies any GI symptoms, and urinary symptoms. 04/02/19 20:18 - Physicial Exam PE: Agree with resident exam. - Critical Care Time Total Critical Care Time: 45 Critical Care Statement: The care of this patient involved high complexity decision making to prevent further life threatening deterioration of the patient 's condition and/or to evaluate & treat vital organ system(s) failure or risk of failure. - Medical Decision Making 04/02/19 20:40 79-year-old male with an episode of altered mental status, diaphoresis and aphasia/dysarthria, now greatly improved Code tate initiated on arrival due to history, due to improvement of symptoms and fever suggesting sepsis patient not a likely candidate for thrombolysis or aggressive neurological treatment at this time Sepsis evaluation completed, antibiotics initiated as well as IV fluids Plan for admission to medical service, neurology consultation Patient's daughter is at the bedside and is aware of the plan
[2019-04-02] MEDS ORDERED: PIPERACILLIN/TAZOB 3.375 GM 3.375 GM/50 ML BAG IVPB ONE (21:02)
[2019-04-02 21:17] LABS: PH,URINE 8.5 (5.0-8.0); URINE APPEARANCE CLEAR; URINE BILIRUBIN NEGATIVE (NEGATIVE); URINE COLOR YELLOW; URINE GLUCOSE (UA) NEGATIVE (NEGATIVE); URINE KETONE NEGATIVE (NEGATIVE); URINE LEUK ESTERASE NEGATIVE (NEGATIVE); URINE NITRITE NEGATIVE (NEGATIVE); URINE PROTEIN NEGATIVE (NEGATIVE)
[2019-04-02] MEDS ORDERED: SODIUM CHLORIDE 0.9% 500 ML INFUS.BAG IV ONE (21:19)
[2019-04-02 21:31] LABS: BASO % 0.4 % (0-2.0); EOS % 1.4 % (0-4.5); LYMPH % 5.9 % (8-40); MCH 28.9 pg (25.7-33.7); MCHC 33.3 g/dl (32.0-35.9); MEAN CELL VOLUME 86.7 fl (80-96); MEAN PLT VOLUME 8.2 fl (7.5-11.1); MONO % 9.7 % (3.8-10.2); NEUT % 82.6 % (42.8-82.8); PLATELET COUNT 182 K/MM3 (134-434); RBC 4.84 M/mm3 (4.00-5.60); RDW 14.5 % (11.9-15.9); WHITE BLOOD COUNT 17.6 K/mm3 (4.0-10.0)
[2019-04-02 22:06] LABS: ALBUMIN 3.4 g/dl (3.4-5.0); BILIRUBIN,TOTAL 0.8 mg/dL (0.2-1); CALCIUM 8.2 mg/dL (8.5-10.1); CREATININE 0.9 mg/dL (0.55-1.3); POTASSIUM 4.5 mmol/L (3.5-5.1); TOT PROT 6.5 g/dl (6.4-8.2)
[2019-04-02 22:14] LABS: INR 1.18 (0.83-1.09); PROTHROMBIN TIME (PATIENT) 13.9 SEC (9.7-13.0)
[2019-04-02 22:17] LABS: ACTIVATED PTT 28.2 SECONDS (25.2-36.5)
[2019-04-02 22:24] LABS: VENOUS PC02 44.2 mmHg (41-51); VENOUS PH 7.41 (7.31-7.41); VENOUS PO2 35.8 mmHg (30-40)
[2019-04-02] MEDS ORDERED: VANCOMYCIN 1 GRAM (PRE-DOCKED) 1,000 MG/250 ML BAG IVPB ONE (22:28)
[2019-04-03] MEDS ORDERED: ACETAMINOPHEN 1000 MG/100 ML VIAL (NON FORMULARY) IVPB ONE (00:01)
[2019-04-03] MEDS ORDERED: ACETAMINOPHEN 325 MG TABLET (FP) PO PRN ×2 (00:46→12:04)
[2019-04-03] MEDS ORDERED: SODIUM CHLORIDE 1,000 ML IV SCH ×2 (01:00→12:04)
--- NOTE | 2019-04-03 01:31 | HP ---
CHIEF COMPLAINT: Slurred speech, shortness of breath PCP: HISTORY OF PRESENT ILLNESS: 79 y/o M, PMH of CVA, asthma, DM type 2, HTN, Hyperlipidemia, COPD, presents to the ED for slurred speech and Shortness of breath for 1 day duration, associated with a fever and nonproductive cough. Pt said he was bending over in the kitchen and lost his breath and passed out on the floor. Pt was found by daughter and brought to the hospital. Pt reports his daughter gave him a medication but do not remember what it was. He states he lost consciousness and hit his head on the right side. Pt is a poor historian. Per pt his speech was altered but now has resolved. Unable to verify history. Denies chills, nausea, vomit, diarrhea, chest pain, numbness, tingling. ROS is negative. ER course was notable for: (1)Zosyn/Vanc was given in the ED (2)CT head was negative, CT A/P-pending (3)Lipase 532, Amylase 131 Recent Travel: n/a PAST MEDICAL HISTORY: CVA, Asthma, Hay fever, DM type 2, HTN, Hyperlipidemia, COPD PAST SURGICAL HISTORY: CABG Social History: Smoking: used to smoke 1ppd, now smokes a pipe Alcohol: denies Drugs: denies Family History: denies Allergies: NKDA No Known Allergies Allergy (Verified 04/02/19 19:24) HOME MEDICATIONS: Home Medications Medication Instructions Recorded Ranitidine [Zantac -] 150 mg PO BID 03/19/13 Atorvastatin Ca [Lipitor] 40 mg PO HS #30 tablet 11/22/17 Clopidogrel Bisulfate [Plavix -] 75 mg PO DAILY #30 tablet 11/22/17 Lisinopril [Prinivil] 10 mg PO DAILY #60 tablet 11/22/17 Metoprolol Succinate [Toprol XL -] 25 mg PO BID #60 tab.sr.24h 11/22/17 Albuterol 2.5/Ipratropium 0.5 1 neb IH QID 04/02/19 [Duoneb -] Budesonide [Pulmicort 0.25 mg 1 neb NEB DAILY 04/02/19 Nebulizer -] REVIEW OF SYSTEMS CONSTITUTIONAL: Absent: chills, CARDIOVASCULAR: Absent: chest pain, palpitations, lightheadedness RESPIRATORY: Absent: wheezing, stridor, hemoptysis GASTROINTESTINAL: Absent: abdominal pain, abdominal distension, nausea, vomiting, diarrhea, constipation, melena, hematochezia NEUROLOGIC: Absent: headache, focal weakness or paresthesias, dizziness, unsteady gait, seizure, mental status changes, bladder or bowel incontinence PSYCHIATRIC: Absent: anxiety, depression, suicidal PHYSICAL EXAMINATION Last Vital Signs Temp Pulse Resp BP Pulse Ox 99.2 F 88 24 H 144/86 99 04/03/19 00:08 04/03/19 00:08 04/03/19 00:08 04/02/19 21:54 04/03/19 00:08 GENERAL: Awake, alert, AOx2, in no acute distress. HEAD: Normal with no signs of trauma. EYES: PERRLA, EOMI intact NECK: supple, no thyroid fullness, no bruit LUNGS: Breath sounds equal, clear to auscultation bilaterally. No wheezes, and no crackles. Tachypnea noted, Pulse O2 is 99 HEART: Regular rate and rhythm, normal S1 and S2 without murmur, rub or gallop. ABDOMEN: Soft, nontender, not distended, normoactive bowel sounds, no guarding, no rebound, no masses. UPPER EXTREMITIES: 2+ pulses, warm, dry skin, scaly LOWER EXTREMITIES: 2+ pulses, warm, dry skin, scaly NEUROLOGICAL: Cranial nerves II-XII intact. Speech slurred from previous CVA PSYCHIATRIC: Cooperative. Good eye contact. SKIN: dry, scaly skin all over Laboratory Results - last 24 hr CBCD CBC, BMP 04/02/19 20:59 04/02/19 20:59 CARDIAC ENZYMES Creatine Kinase 140 U/L (26-308) 04/02/19 20:59 Troponin I 0.03 ng/ml (0.00-0.05) 04/02/19 20:59 Lipase: 532 Amylase: 131 ASSESSMENT/PLAN: 79 y/o M, presents to the ED for slurred speech and shortness of breath, Pt symptoms and cough, suspicious for URI #Slurred Speech r/o stroke vs TIA CT head negative--MRI head w/ out contrast tomorrow NIH score = 2 Consult Neurology in am- Dr. Wright- aware of code tate, he will f/u in am Passed bedside dysphagia swallow- advance to soft diet Hx of CVA- will continue Plavix, Atorvastatin, BP control #Fever + Leukopenia 2/2 to SIRs, r/o sepsis Likely 2/2 to URI given pt symptoms Zosyn/Vanc was given in the ED- continue to monitor pt off Abx CT A/P- pending CXR negative, UCx-pending, Blood Cx pending, UA negative r/p Temp normal Start on fluids #Asthma continue home meds symptomatic management #HTN Continue Lisinopril 10mg and Metoprolol 25mg Monitor BP #Hyperlipidemia Continue Atorvastatin Monitor Lipid profile FEN Soft diet Dispo: monitor on med-surg, fluids, will f/u in am Visit type - Emergency Visit Emergency Visit: Yes ED Registration Date: 04/02/19 Care time: The patient presented to the Emergency Department on the above date and was hospitalized for further evaluation of their emergent condition. - New Patient This patient is new to me today: Yes Date on this admission: 04/06/19 - Critical Care Critical Care patient: No ATTENDING PHYSICIAN STATEMENT I saw and evaluated the patient. I reviewed the resident's note and discussed the case with the resident. I agree with the resident's findings and plan as documented. SUBJECTIVE: OBJECTIVE: ASSESSMENT AND PLAN:
--- NOTE | 2019-04-03 02:23 | PN ---
Teaching Attending Note Name of Resident: Johnny Ambrocio ATTENDING PHYSICIAN STATEMENT I saw and evaluated the patient. I reviewed the resident's note and discussed the case with the resident. I agree with the resident's findings and plan as documented. SUBJECTIVE: This is an 79 year old man with a history of HTN, hyperlipidemia, CAD, MT, CABG, carotid stenosis, COPD, CVA with residual right-side weakness who comes to the ED today after his daughter noted his speech was slurred and he appeared diaphoretic. He says that while in the kitchen, he bent over to pick something up and he passed out. He thinks he hit the right side of his head. He also reports feeling SOB with a fever and non-productive cough x 1 day. OBJECTIVE: Vital Signs Period Temp Pulse Resp BP Sys/De Leon Pulse Ox Last 24 Hr 99 F-101.7 F 88-107 20-30 144-171/84-86 97-99 HEART: S1S2, RRR LUNGS: Clear ABDOMEN: Soft, non-tender, non-distended, normal BS EXTREMITIES: No edema NEUROLOGICAL: Alert, oriented, mild dysarthria, strength 5/5 in LUE/LLE, 4+/5 in RUE/RLE, sensation intact Laboratory Tests 04/02/19 04/02/19 04/02/19 20:09 20:30 20:59 WBC RBC Hgb Hct MCV MCH MCHC RDW Plt Count MPV Absolute Neuts (auto) Neutrophils % Lymphocytes % Monocytes % Eosinophils % Basophils % Nucleated RBC % PT with INR INR PTT (Actin FS) VBG pH POC VBG pCO2 POC VBG pO2 VBG HCO3 VBG O2 Sat (Abhishek) VBG Base Excess Sodium 140 Potassium 4.5 Chloride 106 Carbon Dioxide 30 Anion Gap 5 L BUN 25.0 H Creatinine 0.9 Est GFR (CKD-EPI)AfAm 93.16 Est GFR (CKD-EPI)NonAf 80.38 POC Glucometer 108 Random Glucose 87 Lactic Acid Calcium 8.2 L Total Bilirubin 0.8 AST 31 ALT 32 Alkaline Phosphatase 67 Creatine Kinase 140 Troponin I 0.03 Total Protein 6.5 Albumin 3.4 Triglycerides 67 Cholesterol Total LDL Cholesterol 55 HDL Cholesterol 50 Total Amylase 131 H Lipase 532 H Urine Color Yellow Urine Appearance Clear Urine pH 8.5 H D Ur Specific [place] 1.021 Urine Protein Negative Urine Glucose (UA) Negative Urine Ketones Negative Urine Blood Negative Urine Nitrite Negative Urine Bilirubin Negative Urine Urobilinogen 1.0 Ur Leukocyte Esterase Negative Blood Type Antibody Screen 04/02/19 04/02/19 04/02/19 20:59 20:59 20:59 WBC 17.6 H RBC 4.84 Hgb 14.0 Hct 42.0 MCV 86.7 MCH 28.9 MCHC 33.3 RDW 14.5 Plt Count 182 MPV 8.2 Absolute Neuts (auto) 14.5 H Neutrophils % 82.6 D Lymphocytes % 5.9 L D Monocytes % 9.7 Eosinophils % 1.4 Basophils % 0.4 Nucleated RBC % 0 PT with INR 13.90 H INR 1.18 H PTT (Actin FS) 28.2 VBG pH POC VBG pCO2 POC VBG pO2 VBG HCO3 VBG O2 Sat (Abhishek) VBG Base Excess Sodium Potassium Chloride Carbon Dioxide Anion Gap BUN Creatinine Est GFR (CKD-EPI)AfAm Est GFR (CKD-EPI)NonAf POC Glucometer Random Glucose Lactic Acid Calcium Total Bilirubin AST ALT Alkaline Phosphatase Creatine Kinase Troponin I Total Protein Albumin Triglycerides Cholesterol 110 Total LDL Cholesterol HDL Cholesterol Total Amylase Lipase Urine Color Urine Appearance Urine pH Ur Specific [place] Urine Protein Urine Glucose (UA) Urine Ketones Urine Blood Urine Nitrite Urine Bilirubin Urine Urobilinogen Ur Leukocyte Esterase Blood Type Antibody Screen 04/02/19 04/02/19 04/02/19 20:59 20:59 21:22 WBC RBC Hgb Hct MCV MCH MCHC RDW Plt Count MPV Absolute Neuts (auto) Neutrophils % Lymphocytes % Monocytes % Eosinophils % Basophils % Nucleated RBC % PT with INR INR PTT (Actin FS) VBG pH Cancelled 7.41 POC VBG pCO2 Cancelled 44.2 POC VBG pO2 Cancelled 35.8 VBG HCO3 Cancelled 27.5 VBG O2 Sat (Abhishek) Cancelled 63.6 L VBG Base Excess Cancelled 2.9 H Sodium Potassium Chloride Carbon Dioxide Anion Gap BUN Creatinine Est GFR (CKD-EPI)AfAm Est GFR (CKD-EPI)NonAf POC Glucometer Random Glucose Lactic Acid 0.9 Calcium Total Bilirubin AST ALT Alkaline Phosphatase Creatine Kinase Troponin I Total Protein Albumin Triglycerides Cholesterol Total LDL Cholesterol HDL Cholesterol Total Amylase Lipase Urine Color Urine Appearance Urine pH Ur Specific [place] Urine Protein Urine Glucose (UA) Urine Ketones Urine Blood Urine Nitrite Urine Bilirubin Urine Urobilinogen Ur Leukocyte Esterase Blood Type Antibody Screen 04/02/19 04/02/19 21:39 23:47 WBC RBC Hgb Hct MCV MCH MCHC RDW Plt Count MPV Absolute Neuts (auto) Neutrophils % Lymphocytes % Monocytes % Eosinophils % Basophils % Nucleated RBC % PT with INR INR PTT (Actin FS) VBG pH POC VBG pCO2 POC VBG pO2 VBG HCO3 VBG O2 Sat (Abhishek) VBG Base Excess Sodium Potassium Chloride Carbon Dioxide Anion Gap BUN Creatinine Est GFR (CKD-EPI)AfAm Est GFR (CKD-EPI)NonAf POC Glucometer Random Glucose Lactic Acid 1.0 Calcium Total Bilirubin AST ALT Alkaline Phosphatase Creatine Kinase Troponin I Total Protein Albumin Triglycerides Cholesterol Total LDL Cholesterol HDL Cholesterol Total Amylase Lipase Urine Color Urine Appearance Urine pH Ur Specific [place] Urine Protein Urine Glucose (UA) Urine Ketones Urine Blood Urine Nitrite Urine Bilirubin Urine Urobilinogen Ur Leukocyte Esterase Blood Type A POSITIVE Antibody Screen Negative Home Medications Medication Instructions Recorded Ranitidine [Zantac -] 150 mg PO BID 03/19/13 Atorvastatin Ca [Lipitor] 40 mg PO HS #30 tablet 11/22/17 Clopidogrel Bisulfate [Plavix -] 75 mg PO DAILY #30 tablet 11/22/17 Lisinopril [Prinivil] 10 mg PO DAILY #60 tablet 11/22/17 Metoprolol Succinate [Toprol XL -] 25 mg PO BID #60 tab.sr.24h 11/22/17 Albuterol 2.5/Ipratropium 0.5 1 neb IH QID 04/02/19 [Duoneb -] Budesonide [Pulmicort 0.25 mg 1 neb NEB DAILY 04/02/19 Nebulizer -] ASSESSMENT AND PLAN: This is an 79 year old man with a history of HTN, hyperlipidemia, CAD, MT, CABG , carotid stenosis, COPD, CVA with residual right-sided weakness who presented to the ED with slurred speech after passing out, SOB, fever and cough. 1. Sepsis (fever, tachycardia, leukocytosis) secondary to URI - IV fluid - DuoNeb 2. Dysarthria, right-sided weakness secondary to old CVA - Patient reports he is at baseline - Continue Plavix, Lipitor - MRI of brain 3. HTN - Continue lisinopril, Toprol XL 4. Hyperlipidemia - Continue Lipitor 5. CAD, history of MT, CABG - Continue Toprol XL, Lipitor, Plavix 6. COPD - Stable - Continue Pulmicort, DuoNeb
[2019-04-03] MEDS ORDERED: HEPARIN NA (PORCINE) 5,000 UNITS/ML 1ML VIAL SQ SCH (06:00)
[2019-04-03 07:40] LABS: BASO % 0.3 % (0-2.0); EOS % 2.4 % (0-4.5); HEMOGLOBIN 12.6 GM/dL (11.7-16.9); LYMPH % 9.2 % (8-40); MCH 28.7 pg (25.7-33.7); MCHC 33.2 g/dl (32.0-35.9); MEAN CELL VOLUME 86.4 fl (80-96); MEAN PLT VOLUME 7.9 fl (7.5-11.1); MONO % 13.3 % (3.8-10.2); NEUT % 74.8 % (42.8-82.8); PLATELET COUNT 168 K/MM3 (134-434); RBC 4.39 M/mm3 (4.00-5.60); RDW 14.7 % (11.9-15.9); WHITE BLOOD COUNT 12.1 K/mm3 (4.0-10.0)
[2019-04-03 08:09] LABS: BILIRUBIN,TOTAL 1.2 mg/dL (0.2-1); BLOOD UREA NITROGEN 16.9 mg/dL (7-18); CALCIUM 7.8 mg/dL (8.5-10.1); CREATININE 0.9 mg/dL (0.55-1.3); POTASSIUM 4.2 mmol/L (3.5-5.1); TOT PROT 5.8 g/dl (6.4-8.2)
[2019-04-03] MEDS: ALBUTEROL SO4 2.5/IPRATROPIUM 0.5 INH SOL 3 ML VIAL.NEB. NEB SCH ×5 (08:13→20:45)
[2019-04-03] MEDS ORDERED: ENALAPRILAT DIHYDRATE 1.25 MG/1 ML VIAL IVPB SCH (09:00)
[2019-04-03] MEDS ORDERED: LISINOPRIL 10 MG TABLET (FP) PO SCH (10:00)
[2019-04-03] MEDS ORDERED: metoPROLOL SUCCINATE 25 MG TAB.SR.24H (FP) PO SCH ×2 (10:00→22:00)
[2019-04-03] MEDS ORDERED: CLOPIDOGREL BISULFATE 75 MG TABLET (FP) PO SCH (10:00)
--- NOTE | 2019-04-03 10:52 | PN ---
Physical Exam: SUBJECTIVE: Patient seen and examined at bed sode , complains of generalized weakness , he said he felt dixxy and weak yeseterday and hit his head , he said he did not eat all day yesterday before admssion , he lives with his who she is in different hospital. OBJECTIVE: Vital Signs Period Temp Pulse Resp BP Sys/De [place] Pulse Ox Last 24 Hr 97.2 F-101.7 F 78-110 18-30 143-190/75-90 97-99 GENERAL: AAOx1 to person only in NAD HEAD: NC/AT EYES: EOMI, Conjunctiva clear, sclera anicteric ENT: dry mucous membrane NECK: Supple, no JVD LUNGS: CTA B/L, no crackles no wheezing no accessory muscle use. HEART: RRR, NSR, normal s1, s2, murmur no M/R/G ABDOMEN: Soft, ND, NT, +BS 4 Q, no CVA Tenderness LOWER EXTREMITIES: no edema, +2DP pulse, NEUROLOGICAL: upper ext spastic , LE strength 4/5 , non fluent speach, gait not observed.EOMI, residual Right facial drop skin: very dry ad scaly Laboratory Results - last 24 hr 04/02/19 04/02/19 04/02/19 20:09 20:30 20:59 WBC RBC Hgb Hct MCV MCH MCHC RDW Plt Count MPV Absolute Neuts (auto) Neutrophils % Lymphocytes % Monocytes % Eosinophils % Basophils % Nucleated RBC % PT with INR INR PTT (Actin FS) VBG pH POC VBG pCO2 POC VBG pO2 VBG HCO3 VBG O2 Sat (Abhishek) VBG Base Excess Sodium 140 Potassium 4.5 Chloride 106 Carbon Dioxide 30 Anion Gap 5 L BUN 25.0 H Creatinine 0.9 Est GFR (CKD-EPI)AfAm 93.16 Est GFR (CKD-EPI)NonAf 80.38 POC Glucometer 108 Random Glucose 87 Lactic Acid Calcium 8.2 L Total Bilirubin 0.8 AST 31 ALT 32 Alkaline Phosphatase 67 Creatine Kinase 140 Troponin I 0.03 Total Protein 6.5 Albumin 3.4 Triglycerides 67 Cholesterol Total LDL Cholesterol 55 HDL Cholesterol 50 Total Amylase 131 H Lipase 532 H Urine Color Yellow Urine Appearance Clear Urine pH 8.5 H D Ur Specific [place] 1.021 Urine Protein Negative Urine Glucose (UA) Negative Urine Ketones Negative Urine Blood Negative Urine Nitrite Negative Urine Bilirubin Negative Urine Urobilinogen 1.0 Ur Leukocyte Esterase Negative Blood Type Antibody Screen 04/02/19 04/02/19 04/02/19 20:59 20:59 20:59 WBC 17.6 H RBC 4.84 Hgb 14.0 Hct 42.0 MCV 86.7 MCH 28.9 MCHC 33.3 RDW 14.5 Plt Count 182 MPV 8.2 Absolute Neuts (auto) 14.5 H Neutrophils % 82.6 D Lymphocytes % 5.9 L D Monocytes % 9.7 Eosinophils % 1.4 Basophils % 0.4 Nucleated RBC % 0 PT with INR 13.90 H INR 1.18 H PTT (Actin FS) 28.2 VBG pH POC VBG pCO2 POC VBG pO2 VBG HCO3 VBG O2 Sat (Abhishek) VBG Base Excess Sodium Potassium Chloride Carbon Dioxide Anion Gap BUN Creatinine Est GFR (CKD-EPI)AfAm Est GFR (CKD-EPI)NonAf POC Glucometer Random Glucose Lactic Acid Calcium Total Bilirubin AST ALT Alkaline Phosphatase Creatine Kinase Troponin I Total Protein Albumin Triglycerides Cholesterol 110 Total LDL Cholesterol HDL Cholesterol Total Amylase Lipase Urine Color Urine Appearance Urine pH Ur Specific [place] Urine Protein Urine Glucose (UA) Urine Ketones Urine Blood Urine Nitrite Urine Bilirubin Urine Urobilinogen Ur Leukocyte Esterase Blood Type Antibody Screen 04/02/19 04/02/19 04/02/19 20:59 20:59 21:22 WBC RBC Hgb Hct MCV MCH MCHC RDW Plt Count MPV Absolute Neuts (auto) Neutrophils % Lymphocytes % Monocytes % Eosinophils % Basophils % Nucleated RBC % PT with INR INR PTT (Actin FS) VBG pH Cancelled 7.41 POC VBG pCO2 Cancelled 44.2 POC VBG pO2 Cancelled 35.8 VBG HCO3 Cancelled 27.5 VBG O2 Sat (Abhishek) Cancelled 63.6 L VBG Base Excess Cancelled 2.9 H Sodium Potassium Chloride Carbon Dioxide Anion Gap BUN Creatinine Est GFR (CKD-EPI)AfAm Est GFR (CKD-EPI)NonAf POC Glucometer Random Glucose Lactic Acid 0.9 Calcium Total Bilirubin AST ALT Alkaline Phosphatase Creatine Kinase Troponin I Total Protein Albumin Triglycerides Cholesterol Total LDL Cholesterol HDL Cholesterol Total Amylase Lipase Urine Color Urine Appearance Urine pH Ur Specific [place] Urine Protein Urine Glucose (UA) Urine Ketones Urine Blood Urine Nitrite Urine Bilirubin Urine Urobilinogen Ur Leukocyte Esterase Blood Type Antibody Screen 04/02/19 04/02/19 04/03/19 21:39 23:47 06:57 WBC 12.1 H RBC 4.39 Hgb 12.6 Hct 38.0 MCV 86.4 MCH 28.7 MCHC 33.2 RDW 14.7 Plt Count 168 MPV 7.9 Absolute Neuts (auto) 9.0 H Neutrophils % 74.8 Lymphocytes % 9.2 D Monocytes % 13.3 H Eosinophils % 2.4 Basophils % 0.3 Nucleated RBC % 0 PT with INR INR PTT (Actin FS) VBG pH POC VBG pCO2 POC VBG pO2 VBG HCO3 VBG O2 Sat (Abhishek) VBG Base Excess Sodium Potassium Chloride Carbon Dioxide Anion Gap BUN Creatinine Est GFR (CKD-EPI)AfAm Est GFR (CKD-EPI)NonAf POC Glucometer Random Glucose Lactic Acid 1.0 Calcium Total Bilirubin AST ALT Alkaline Phosphatase Creatine Kinase Troponin I Total Protein Albumin Triglycerides Cholesterol Total LDL Cholesterol HDL Cholesterol Total Amylase Lipase Urine Color Urine Appearance Urine pH Ur Specific [place] Urine Protein Urine Glucose (UA) Urine Ketones Urine Blood Urine Nitrite Urine Bilirubin Urine Urobilinogen Ur Leukocyte Esterase Blood Type A POSITIVE Antibody Screen Negative 04/03/19 06:57 WBC RBC Hgb Hct MCV MCH MCHC RDW Plt Count MPV Absolute Neuts (auto) Neutrophils % Lymphocytes % Monocytes % Eosinophils % Basophils % Nucleated RBC % PT with INR INR PTT (Actin FS) VBG pH POC VBG pCO2 POC VBG pO2 VBG HCO3 VBG O2 Sat (Abhishek) VBG Base Excess Sodium 143 Potassium 4.2 Chloride 109 H Carbon Dioxide 29 Anion Gap 5 L BUN 16.9 Creatinine 0.9 Est GFR (CKD-EPI)AfAm 93.16 Est GFR (CKD-EPI)NonAf 80.38 POC Glucometer Random Glucose 74 Lactic Acid Calcium 7.8 L Total Bilirubin 1.2 H AST 20 ALT 27 Alkaline Phosphatase 57 Creatine Kinase Troponin I Total Protein 5.8 L Albumin 3.0 L Triglycerides Cholesterol Total LDL Cholesterol HDL Cholesterol Total Amylase Lipase Urine Color Urine Appearance Urine pH Ur Specific [place] Urine Protein Urine Glucose (UA) Urine Ketones Urine Blood Urine Nitrite Urine Bilirubin Urine Urobilinogen Ur Leukocyte Esterase Blood Type Antibody Screen Active Medications Generic Name Dose Route Start Last Admin Trade Name Freq PRN Reason Stop Dose Admin Acetaminophen 650 mg 04/03/19 00:46 Tylenol - PO Q4H PRN PAIN OR FEVER Albuterol/Ipratropium 1 amp 04/03/19 08:00 04/03/19 08:13 Duoneb - NEB 1 amp RQID MARANDA Administration Atorvastatin Calcium 40 mg 04/03/19 22:00 Lipitor - PO HS MARANDA Clopidogrel Bisulfate 75 mg 04/03/19 10:00 04/03/19 09:49 Plavix - PO 75 mg DAILY MARANDA Administration Heparin Sodium (Porcine) 5,000 unit 04/03/19 06:00 04/03/19 06:50 Heparin - SQ 5,000 unit TID MARANDA Administration Sodium Chloride 1,000 mls @ 42 mls/hr 04/03/19 01:00 04/03/19 02:11 Normal Saline - IV 42 mls/hr ASDIR MARANDA Administration Lisinopril 10 mg 04/03/19 10:00 04/03/19 09:49 Prinivil PO 10 mg DAILY MARANDA Administration Metoprolol Succinate 25 mg 04/03/19 10:00 04/03/19 09:49 Toprol Xl - PO 25 mg BID MARANDA Administration CBC, BMP 04/03/19 06:57 04/03/19 06:[address] (reviewed): Mod diffuse cerebral atrophy with deep sulci. Ex vaculo ventricular dilation. Scattered chronic infarct L frontoparietal cortex. MRI negative for acute pathology CT Chest Abdomen/Pelvic Extensive COPD changes again seen without gross interval change. No focal infiltrates are identified. Questionable 4.5 mm nodule in the right lower lobe, posteriorly medially No enlarged mediastinal or hilar lymph nodes are identified. Right renal upper pole simple cyst again seen without interval change. The gallbladder is not definitely identified. Moderate to large amount of fecal residue in the colon compatible with constipation. 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 Slightly enlarged prostate gland. 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 Wright- recommend Thiamin , folic acid , RPR, Brain MRI * Thiamin 250 mg IV for three days * might benifit from CASSY * speech and swallow evaluated with good swallowing , recommend soft diet * Echo cardiogram with mild TR, mild lV redused function, mild global hypokinesia of left ventricle, normal RV function , * and Carotic doppler * EKG ST, with pvc and incomplete RBBB, QTC 464 #Hx of CVA- will continue Plavix, Atorvastatin, BP control, add ASA #Fever + Leukopenia 2/2 to SIRs, r/o sepsis * Likely 2/2 to URI given pt symptoms * Zosyn/Vanc was given in the ED * monitor pt off Abx * CT A/P- pending * CXR negative, UCx-pending, Blood Cx pending, * UA negative * cont IV fluids #HTN, uncontrolled * Continue Lisinopril 10mg and increase Metoprolol 25mg to 50 BID * Monitor BP #Hyperlipidemia * Continue Atorvastatin #CAD, history of [place], CABG * Continue Toprol XL, Lipitor, Plavix # COPD, Stable * Continue Pulmicort, DuoNeb # small nodule RLL 4.[address] scan to be followed as out pt with repeat images in one year # 3cm Bladder diverticular folow up out pt if there is any symptoms. # Enlarged prostate follow up out pt # right renal small cyst follow up as oiut pt. #FEN * NS 500 Bolus then 42 maintinance * monitor lytes * Soft diet #Dispo: transfer to [facility] for stroke better monitoring Visit type - Emergency Visit Emergency Visit: Yes ED Registration Date: 04/02/19 Care time: The patient presented to the Emergency Department on the above date and was hospitalized for further evaluation of their emergent condition. - New Patient This patient is new to me today: Yes Date on this admission: 04/03/19 - Critical Care Critical Care patient: No ATTENDING PHYSICIAN STATEMENT I saw and evaluated the patient. I reviewed the resident's note and discussed the case with the resident. I agree with the resident's findings and plan as documented. SUBJECTIVE: OBJECTIVE: ASSESSMENT AND PLAN:
--- NOTE | 2019-04-03 11:06 | CONSULT ---
Consult - text type - Consultation Consultation Note: NEUROLOGY CONSULT GREATLY APPRECIATED: Events reviewed and discussed with Amie Cornejo PA. Patient examined. This 79 yo man with PMH of COPD, HTN, HLD. On: atorvastatin, clopidogrel , lisinopril, metoprolol, duoneb, budesonide. S/P CVA w/ residual right sided weakness, CABG, carotid stenosis, now living alone as now at [place]. Per records, 2 daughters have been coming in to visit and check on their father. Admitted after period of diaphoresis and SOB while toileting according to daughter who was present. Pt unable to provide cogent history. Head CT (reviewed): Mod diffuse cerebral atrophy with deep sulci. Ex vacuo ventricular dilation. Chronic infarct L frontoparietal cortex. BP on admission= 171/84. WBC= 12.1 K- on IV Vanco and Zosyn MEENA: T101.7 Cor reg. No bruit. Restricted ROM neck in all directions. [place] diffusely dry. NEURO: Awake, alert, responsive. Non-fluent aphasia. Prominent frontal release findings including: + glabella, suck, grasps. CNII-CNXII: EOM's full. Full [place]. Min R facial. Gag ok - swallowing small sips H20 without difficulty Motor: Spastic R hemiparesis arm > leg. But also, rigid tone on the left. Symmetric grasps. Reflexes brisk throughout R > L. R Babinski. Coordination: No FTN dystaxia. Sensation: Reduced vibration toes. Gait: Flexed, sl shuffle. Min R circumduction. Impression: Moderate B/L Cerebral Dysfunction (OMS, chronic) due to LSW microvascular changes +/- Alzheimer's Disease L cerebral accentuation due to old L frontoparietal stroke with mixed aphasia and spastic right hemiparesis. Presyncope. History suggests possible vasovagal etiology Toxic-metabolic encephalopathy with fever and leukocytosis. Suggest: Agree with MRI of brain (C-) Check B12, TSH, RPR Add thiamine 250 mg IVP q8H x 3 days Carotid duplex Orthostatic BP's Cardiology consult appreciated. 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 Thank you very much, Ld Wright MD
--- NOTE | 2019-04-03 11:36 | PN ---
Teaching Attending Note Name of Resident: Surinder Leary ATTENDING PHYSICIAN STATEMENT I saw and evaluated the patient. I reviewed the resident's note and discussed the case with the resident. I agree with the resident's findings and plan as documented with exceptions below. SUBJECTIVE: Patient seen and examined. denies any dyspnea, pain, fevers, chills. ROS markedly limited from cognitive dysfunction. OBJECTIVE: Vital Signs Period Temp Pulse Resp BP Sys/De Leon Pulse Ox Last 24 Hr 97.2 F-101.7 F 78-110 18-30 143-190/75-90 97-99 Intake & Output 03/31/19 04/01/19 04/02/19 04/03/19 23:59 23:59 23:59 23:59 Intake Total 272 Output Total 200 Balance 72 Weight 1102 lb 117 lb General: lying in bed in no acute distress HEENT: dry skin and mucous membrane Neck: soft, no JVD Chest: decreased effort, no rales or wheezing Abdomen:Soft, NT throughout, ND, pos bowel sounds Extremities: dry scaly skin, no edema Neuro: AA, oriented to self, non fluent aphasia, RUE spasticity, RLE 4/5, facial symmetry, Right babinski positive, sensation limited as keeps repeating ' yes' to all questions Home Medications Medication Instructions Recorded Ranitidine [Zantac -] 150 mg PO BID 03/19/13 Atorvastatin Ca [Lipitor] 40 mg PO HS #30 tablet 11/22/17 Clopidogrel Bisulfate [Plavix -] 75 mg PO DAILY #30 tablet 11/22/17 Lisinopril [Prinivil] 10 mg PO DAILY #60 tablet 11/22/17 Metoprolol Succinate [Toprol XL -] 25 mg PO BID #60 tab.sr.24h 11/22/17 Albuterol 2.5/Ipratropium 0.5 1 neb IH QID 04/02/19 [Duoneb -] Budesonide [Pulmicort 0.25 mg 1 neb NEB DAILY 04/02/19 Nebulizer -] Active Medications Acetaminophen (Tylenol -) 650 mg PO Q4H PRN PRN Reason: PAIN OR FEVER Albuterol/Ipratropium (Duoneb -) 1 amp NEB RQID MARANDA Last Admin: 04/03/19 11:23 Dose: 1 amp Atorvastatin Calcium (Lipitor -) 40 mg PO HS MARANDA Clopidogrel Bisulfate (Plavix -) 75 mg PO DAILY [facility] Last Admin: 04/03/19 09:49 Dose: 75 mg Heparin Sodium (Porcine) (Heparin -) 5,000 unit SQ TID [facility] Last Admin: 04/03/19 06:50 Dose: 5,000 unit Sodium Chloride (Normal Saline -) 1,000 mls @ 42 mls/hr IV ASDIR MARANDA Last Admin: 04/03/19 02:11 Dose: 42 mls/hr Sodium Chloride (Normal Saline -) 500 mls @ 500 mls/hr IV ASDIR STA Stop: 04/03/19 12:38 Lisinopril (Prinivil) 10 mg PO DAILY [facility] Last Admin: 04/03/19 09:49 Dose: 10 mg Metoprolol Succinate (Toprol Xl -) 25 mg PO BID [facility] Last Admin: 04/03/19 09:49 Dose: 25 mg Polyethylene Glycol (Miralax (For Daily Use) -) 17 gm PO DAILY [facility] Thiamine HCl (Vitamin B1 Injection -) 200 mg IVPB TID MARANDA Stop: 04/06/19 13:59 Laboratory Results - last 24 hr 04/02/19 04/02/19 04/02/19 20:09 20:30 20:59 WBC RBC Hgb Hct MCV MCH MCHC RDW Plt Count MPV Absolute Neuts (auto) Neutrophils % Lymphocytes % Monocytes % Eosinophils % Basophils % Nucleated RBC % PT with INR INR PTT (Actin FS) VBG pH POC VBG pCO2 POC VBG pO2 VBG HCO3 VBG O2 Sat (Abhishek) VBG Base Excess Sodium 140 Potassium 4.5 Chloride 106 Carbon Dioxide 30 Anion Gap 5 L BUN 25.0 H Creatinine 0.9 Est GFR (CKD-EPI)AfAm 93.16 Est GFR (CKD-EPI)NonAf 80.38 POC Glucometer 108 Random Glucose 87 Lactic Acid Calcium 8.2 L Total Bilirubin 0.8 AST 31 ALT 32 Alkaline Phosphatase 67 Creatine Kinase 140 Troponin I 0.03 Total Protein 6.5 Albumin 3.4 Triglycerides 67 Cholesterol Total LDL Cholesterol 55 HDL Cholesterol 50 Total Amylase 131 H Lipase 532 H Urine Color Yellow Urine Appearance Clear Urine pH 8.5 H D Ur Specific [place] 1.021 Urine Protein Negative Urine Glucose (UA) Negative Urine Ketones Negative Urine Blood Negative Urine Nitrite Negative Urine Bilirubin Negative Urine Urobilinogen 1.0 Ur Leukocyte Esterase Negative Blood Type Antibody Screen 04/02/19 04/02/19 04/02/19 20:59 20:59 20:59 WBC 17.6 H RBC 4.84 Hgb 14.0 Hct 42.0 MCV 86.7 MCH 28.9 MCHC 33.3 RDW 14.5 Plt Count 182 MPV 8.2 Absolute Neuts (auto) 14.5 H Neutrophils % 82.6 D Lymphocytes % 5.9 L D Monocytes % 9.7 Eosinophils % 1.4 Basophils % 0.4 Nucleated RBC % 0 PT with INR 13.90 H INR 1.18 H PTT (Actin FS) 28.2 VBG pH POC VBG pCO2 POC VBG pO2 VBG HCO3 VBG O2 Sat (Abhishek) VBG Base Excess Sodium Potassium Chloride Carbon Dioxide Anion Gap BUN Creatinine Est GFR (CKD-EPI)AfAm Est GFR (CKD-EPI)NonAf POC Glucometer Random Glucose Lactic Acid Calcium Total Bilirubin AST ALT Alkaline Phosphatase Creatine Kinase Troponin I Total Protein Albumin Triglycerides Cholesterol 110 Total LDL Cholesterol HDL Cholesterol Total Amylase Lipase Urine Color Urine Appearance Urine pH Ur Specific [place] Urine Protein Urine Glucose (UA) Urine Ketones Urine Blood Urine Nitrite Urine Bilirubin Urine Urobilinogen Ur Leukocyte Esterase Blood Type Antibody Screen 04/02/19 04/02/19 04/02/19 20:59 20:59 21:22 WBC RBC Hgb Hct MCV MCH MCHC RDW Plt Count MPV Absolute Neuts (auto) Neutrophils % Lymphocytes % Monocytes % Eosinophils % Basophils % Nucleated RBC % PT with INR INR PTT (Actin FS) VBG pH Cancelled 7.41 POC VBG pCO2 Cancelled 44.2 POC VBG pO2 Cancelled 35.8 VBG HCO3 Cancelled 27.5 VBG O2 Sat (Abhishek) Cancelled 63.6 L VBG Base Excess Cancelled 2.9 H Sodium Potassium Chloride Carbon Dioxide Anion Gap BUN Creatinine Est GFR (CKD-EPI)AfAm Est GFR (CKD-EPI)NonAf POC Glucometer Random Glucose Lactic Acid 0.9 Calcium Total Bilirubin AST ALT Alkaline Phosphatase Creatine Kinase Troponin I Total Protein Albumin Triglycerides Cholesterol Total LDL Cholesterol HDL Cholesterol Total Amylase Lipase Urine Color Urine Appearance Urine pH Ur Specific [place] Urine Protein Urine Glucose (UA) Urine Ketones Urine Blood Urine Nitrite Urine Bilirubin Urine Urobilinogen Ur Leukocyte Esterase Blood Type Antibody Screen 04/02/19 04/02/19 04/03/19 21:39 23:47 06:57 WBC 12.1 H RBC 4.39 Hgb 12.6 Hct 38.0 MCV 86.4 MCH 28.7 MCHC 33.2 RDW 14.7 Plt Count 168 MPV 7.9 Absolute Neuts (auto) 9.0 H Neutrophils % 74.8 Lymphocytes % 9.2 D Monocytes % 13.3 H Eosinophils % 2.4 Basophils % 0.3 Nucleated RBC % 0 PT with INR INR PTT (Actin FS) VBG pH POC VBG pCO2 POC VBG pO2 VBG HCO3 VBG O2 Sat (Abhishek) VBG Base Excess Sodium Potassium Chloride Carbon Dioxide Anion Gap BUN Creatinine Est GFR (CKD-EPI)AfAm Est GFR (CKD-EPI)NonAf POC Glucometer Random Glucose Lactic Acid 1.0 Calcium Total Bilirubin AST ALT Alkaline Phosphatase Creatine Kinase Troponin I Total Protein Albumin Triglycerides Cholesterol Total LDL Cholesterol HDL Cholesterol Total Amylase Lipase Urine Color Urine Appearance Urine pH Ur Specific [place] Urine Protein Urine Glucose (UA) Urine Ketones Urine Blood Urine Nitrite Urine Bilirubin Urine Urobilinogen Ur Leukocyte Esterase Blood Type A POSITIVE Antibody Screen Negative 04/03/19 06:57 WBC RBC Hgb Hct MCV MCH MCHC RDW Plt Count MPV Absolute Neuts (auto) Neutrophils % Lymphocytes % Monocytes % Eosinophils % Basophils % Nucleated RBC % PT with INR INR PTT (Actin FS) VBG pH POC VBG pCO2 POC VBG pO2 VBG HCO3 VBG O2 Sat (Abhishek) VBG Base Excess Sodium 143 Potassium 4.2 Chloride 109 H Carbon Dioxide 29 Anion Gap 5 L BUN 16.9 Creatinine 0.9 Est GFR (CKD-EPI)AfAm 93.16 Est GFR (CKD-EPI)NonAf 80.38 POC Glucometer Random Glucose 74 Lactic Acid Calcium 7.8 L Total Bilirubin 1.2 H AST 20 ALT 27 Alkaline Phosphatase 57 Creatine Kinase Troponin I Total Protein 5.8 L Albumin 3.0 L Triglycerides Cholesterol Total LDL Cholesterol HDL Cholesterol Total Amylase Lipase Urine Color Urine Appearance Urine pH Ur Specific [place] Urine Protein Urine Glucose (UA) Urine Ketones Urine Blood Urine Nitrite Urine Bilirubin Urine Urobilinogen Ur Leukocyte Esterase Blood Type Antibody Screen CT chest/Abdomen/Pelvis results reviewed ASSESSMENT AND PLAN: 79 yof with PMHx of CAD s/p CABG, CVA with Right hemiparesis, Carotid stenosis s /p stent x2, COPD, HTN, HLD, Former Smoker, PEG tube with removal admitted with slurred speech, found with fever -?Slurred speech r/o CVA -Dehydration -SIRS, ?In the setting of URI -CAD s/p CABG/Angina -Carotid stensos s/p stent x 2 -COPD -HTN -HLD -H/o PEG tube with removal -Constipation PLan: Neurochecks,neurology input, follow up MRI brain. 2D echo. Transfer to telemetry. Continue plavix/statin. Add ASA. Continue metoprolol/quinapril. IV hydration (looks dry clinically). No further fevers, WBC improved, CT chest/A/P/Urine studies neg. Follow up blood cx. Add bowel regimen PT eval, may need SNF on dc Dispo in 1-2 days if clinically improved and disposition arranged.
[2019-04-03] MEDS ORDERED: SODIUM CHLORIDE 500 ML IV STA (11:39)
[2019-04-03 12:07] LABS: BILIRUBIN,DIRECT 0.3 mg/dL (0.0-0.2)
--- NOTE | 2019-04-03 12:48 | CONSULT ---
Admitting History and Physical - Primary Care Physician PCP: Alona Gonzalez - Admission History of Present Illness: 79 y/o M, with PMH of COPD, HTN, HLD, and CVA w/ residual right sided weakness, CABG, carotid stenosis, presented to the ED for slurred speech and shortness of breath and cough Neuro Impression: Moderate B/L Cerebral Dysfunction (OMS, chronic) due to FLOSSER microvascular changes +/- Alzheimer's Disease L cerebral dysfunction (chronic L frontoparietal infarct) Possible vasovagal presyncope History Source: Medical Record Limitations to Obtaining History: Clinical Condition, Dementia, Poor Historian - Past Medical History Cardiovascular: Yes: CAD, HTN, Hyperlipdemia Pulmonary: Yes: COPD - Past Surgical History Past Surgical History: Yes: CABG, Stent - Smoking History Smoking history: Former smoker Have you smoked in the past 12 months: No Aproximately how many cigarettes per day: 0 If you are a former smoker, when did you quit?: over 20 years ago - Alcohol/Substance Use Hx Alcohol Use: No History - Admission Reason For Visit: SEPSIS - Diagnostics X-ray: Report Reviewed CT Scan: Report Reviewed (Mod diffuse cerebral atrophy with deep sulci. Ex vaculo ventricular dilation. Scattered chronic infarct L frontoparietal cortex.) MRI: Report Reviewed (No acute stroke) Other: Report Reviewed (CT chest reviewed) - General Mental Status: Awake and Alert (disoriented to place/Trump. Told me about h/o stroke and falling in kitchen.), Able to Follow Commands, Forgetful, Vague Attention: Intact Ability to Follow Directions: Good Head/Neck Control: WFL - Hearing Hearing: Impaired, Left Ear Hearing Aide: Yes With Patient: No Speech Evaluation - Communication Primary Language: [place] Communication: Yes: Simple Responses - Speech Production Able to Make Needs Known: Yes: Mildly Impaired Intelligibility: Yes: Mildly Impaired - Speech Characteristics Voice Loudness: Mildly Soft/Quiet Voice Pitch: Yes: Mildly High Voice Phonatory-based Quality: Yes: Dysphonia Speech Pattern: Impaired Speech Clarity: < 75% Nasal Resonance: Normal Dysfluency: Yes: Clonic Rate of Speech: Too Fast - Language/Auditory Comprehension Follows: Yes: 1 Stage Simple Commands Observation: Able to respond to yes/no queries: Yes, Yes/No Confusion: No, Comprehends Conversational Speech: Yes - Language/Verbal Expression Able to Respond to Simple Queries: Yes: Mildly Impaired Able to Communicate Wants and Needs: Yes: Mildly Impaired Functional Communication Status: Yes: Mildly Impaired - Swallow Evaluation/Bedside Assessment Current Nutritional Intake: Soft Oral Secretions: Yes: WFL Dentition: Yes: Missing Teeth (only a few teeth) Facial Symmetry at Rest: Facial Droop Right Against Resistance Opening: Normal Against Resistance Closing: Normal Pucker Lips: Normal Smile: Normal Lingual Movement: Normal, Symmetric Lingual Speed of Movement: Normal Lingual Movement Strgth Against Opposition: Normal Lingual Movement Characteristics: Normal Velopharyngeal Movement: Normal Laryngeal Movement: Able to Palpate Rate of Intake: WFL Bolus Size: WFL Labial Seal: WFL Chewing: Impaired (fairly efficient. Many missing teeth. Need soft, easy to chew foods) Oral Prep Time: WFL A-P Transit: WFL Pocketing: None Coughing/Throat Clear: No Change in Voice: No Recommendations - Speech Evaluation, Impression/Plan Impression: Swallow is brisk. Mastication fairly efficient. Many missing teeth. Need soft, easy to chew foods. Verbal, mild dysfluency, high pitch, dysphonic. - Dysphagia Impressions/Plan Dysphagia Impressions: Mild Impairment *Silent aspiration: cannot be R/O at bedside Dysphagia Treatment Plan: Small Bites, Chin Tuck/Down, Clear Pocket Food, Trial Feedings, Safe Rate, 1/2 tsp. at a time, Elevate HOB during feed, OOB for meals (if possible) Recommendations: Modified Barium Swallow (if cough, congestion, fever) - Recommendations Diet Consistency: Regular (soft, easy to chew. limited dentition) Medication Administration: Whole with water Liquids: Thin Liquids
--- NOTE | 2019-04-03 14:02 | EKG ---
Test Reason : Blood Pressure : / mmHG Vent. Rate : 115 BPM Atrial Rate : 115 BPM P-R Int : 146 ms QRS Dur : 104 ms QT Int : 336 ms P-R-T Axes : 083 -64 085 degrees QTc Int : 464 ms SINUS TACHYCARDIA WITH OCCASIONAL PREMATURE VENTRICULAR COMPLEXES BIATRIAL ENLARGEMENT PULMONARY DISEASE PATTERN INCOMPLETE RIGHT BUNDLE BRANCH BLOCK LEFT ANTERIOR FASCICULAR BLOCK SEPTAL INFARCT (CITED ON OR BEFORE 19-MAR-2013) ABNORMAL ECG WHEN COMPARED WITH ECG OF 21-NOV-2017 10:18, NONSPECIFIC T WAVE ABNORMALITY, WORSE IN LATERAL LEADS Confirmed by GURVINDER STEWART MD ([id number]) on 04/03/2019 2:02:17 PM Referred By: Confirmed By:GURVINDER STEWART MD
[2019-04-03] MEDS: POLYETHYLENE GLYCOL 3350 119 GM BTL PO SCH (14:14)
[2019-04-03] MEDS: ASPIRIN COATED 81 MG TABLET.EC PO SCH (14:15)
[2019-04-03] MEDS: THIAMINE HCL 200 MG/2 ML VIAL IVPB SCH ×2 (14:22→21:29)
[2019-04-03] MEDS: HEPARIN NA (PORCINE) 5,000 UNITS/ML 1ML VIAL SQ SCH ×2 (14:22→21:29)
[2019-04-03] MEDS ORDERED: metoPROLOL SUCCINATE 25 MG TAB.SR.24H (FP) PO ONE (16:05)
--- NOTE | 2019-04-03 16:46 | ECHO ---
Name: URUSLA MONACO Exam:Adult Echocardiogram Study Date: 04/03/2019 01:35 PM Age: 79 yrs Reason For Study: CVA Height: 64 in Weight: 117 lb BSA: 1.6 m2 MMode/2D Measurements & Calculations IVSd: 0.79 cm Ao root diam: 2.3 cm LVIDd: 5.2 cm LA dimension: 3.1 cm LVIDs: 3.8 cm LVPWd: 0.72 cm EDV(Teich): 126.7 ml LVOT diam: 1.9 cm ESV(Teich): 62.3 ml Doppler Measurements & Calculations MV E max binu: 57.8 cm/sec Ao V2 max: 109.4 cm/sec MV A max binu: 68.1 cm/sec Ao max P.8 mmHg MV E/A: 0.85 Ao V2 mean: 78.4 cm/sec MV dec time: 0.19 sec Ao mean P.7 mmHg Ao V2 VTI: 23.2 cm JOSIAH(I,D): 1.6 cm2 JOSIAH(V,D): 1.4 cm2 LV V1 max P.2 mmHg SV(LVOT): 37.6 ml LV V1 mean P.61 mmHg LV V1 max: 55.2 cm/sec LV V1 mean: 37.1 cm/sec LV V1 VTI: 13.5 cm Med Peak E' Binu: 5.4 cm/sec Med E/e': 10.8 Lat Peak E' Binu: 4.5 cm/sec Lat E/e': 12.9 Procedure A complete two-dimensional transthoracic echocardiogram was performed (2D, M-mode, Doppler and color flow Doppler). The study was technically difficult with many images being suboptimal in quality. Left Ventricle The left ventricle is normal in size. Left ventricular systolic function is mildly reduced. Ejection Fraction = 45-50%. There is mild global hypokinesis of the left ventricle. Right Ventricle The right ventricle is normal in size and function. Atria Normal left and right atrial size and function. Mitral Valve There is no mitral regurgitation noted. Tricuspid Valve There is trace tricuspid regurgitation. There was insufficient TR detected to calculate RV systolic p ressure. Aortic Valve No hemodynamically significant valvular aortic stenosis. No aortic regurgitation is present. Pulmonic Valve There is no pulmonic valvular regurgitation. Great Vessels The aortic root is normal size. Pericardium/Pleura There is no pericardial effusion. Interpretation Summary The study was technically difficult with many images being suboptimal in quality. Left ventricular systolic function is mildly reduced. There is mild global hypokinesis of the left ventricle. The right ventricle is normal in size and function. There is trace tricuspid regurgitation. MD Lance Craft 04/03/2019 04:46 PM
[2019-04-03] MEDS: metoPROLOL SUCCINATE 25 MG TAB.SR.24H (FP) PO SCH (21:29)
[2019-04-03] MEDS ORDERED: ATORVASTATIN CA 40 MG TABLET (FP) PO SCH ×2 (22:00)
[2019-04-04] MEDS: HEPARIN NA (PORCINE) 5,000 UNITS/ML 1ML VIAL SQ SCH ×2 (06:41→13:05)
[2019-04-04] MEDS: THIAMINE HCL 200 MG/2 ML VIAL IVPB SCH ×2 (06:41→13:05)
--- NOTE | 2019-04-04 07:08 | PN ---
Physical Exam: SUBJECTIVE: Patient seen and examined OBJECTIVE: Vital Signs Period Temp Pulse Resp BP Sys/[place] Pulse Ox Last 24 Hr 97.2 F-98.7 F 74-110 18-20 135-190/74-90 96-98 GENERAL: The patient is awake, alert, and fully oriented, in no acute distress. HEAD: Normal with no signs of trauma. EYES: PERRL, extraocular movements intact, sclera anicteric, conjunctiva clear. No ptosis. ENT: Ears normal, nares patent, oropharynx clear without exudates, moist mucous membranes. NECK: Trachea midline, full range of motion, supple. LUNGS: Breath sounds equal, clear to auscultation bilaterally, no wheezes, no crackles, no accessory muscle use. HEART: Regular rate and rhythm, S1, S2 without murmur, rub or gallop. ABDOMEN: Soft, nontender, nondistended, normoactive bowel sounds, no guarding, no rebound, no hepatosplenomegaly, no masses. EXTREMITIES: 2+ pulses, warm, well-perfused, no edema. NEUROLOGICAL: Cranial nerves II through XII grossly intact. Normal speech, gait not observed. PSYCH: Normal mood, normal affect. SKIN: Warm, dry, normal turgor, no rashes or lesions noted Laboratory Results - last 24 hr 04/03/19 04/03/19 06:57 06:57 WBC 12.1 H RBC 4.39 Hgb 12.6 Hct 38.0 MCV 86.4 MCH 28.7 MCHC 33.2 RDW 14.7 Plt Count 168 MPV 7.9 Absolute Neuts (auto) 9.0 H Neutrophils % 74.8 Lymphocytes % 9.2 D Monocytes % 13.3 H Eosinophils % 2.4 Basophils % 0.3 Nucleated RBC % 0 Sodium 143 Potassium 4.2 Chloride 109 H Carbon Dioxide 29 Anion Gap 5 L BUN 16.9 Creatinine 0.9 Est GFR (CKD-EPI)AfAm 93.16 Est GFR (CKD-EPI)NonAf 80.38 Random Glucose 74 Calcium 7.8 L Total Bilirubin 1.2 H Direct Bilirubin 0.3 H AST 20 ALT 27 Alkaline Phosphatase 57 Total Protein 5.8 L Albumin 3.0 L Active Medications Generic Name Dose Route Start Last Admin Trade Name Freq PRN Reason Stop Dose Admin Acetaminophen 650 mg 04/03/19 12:04 Tylenol - PO Q4H PRN PAIN OR FEVER Albuterol/Ipratropium 1 amp 04/03/19 12:15 04/03/19 20:45 Duoneb - NEB 1 amp RQID MARANDA Administration Aspirin 81 mg 04/03/19 11:45 04/03/19 14:15 Ecotrin - PO 81 mg DAILY MARANDA Administration Atorvastatin Calcium 40 mg 04/03/19 22:00 04/03/19 21:29 Lipitor - PO 40 mg HS MARANDA Administration Clopidogrel Bisulfate 75 mg 04/04/19 10:00 Plavix - PO DAILY MARANDA Heparin Sodium (Porcine) 5,000 unit 04/03/19 14:00 04/04/19 06:41 Heparin - SQ 5,000 unit TID MARANDA Administration Sodium Chloride 1,000 mls @ 42 mls/hr 04/03/19 12:04 04/03/19 14:15 Normal Saline - IV 42 mls/hr ASDIR MARANDA Administration Lisinopril 10 mg 04/04/19 10:00 Prinivil PO DAILY MARANDA Metoprolol Succinate 50 mg 04/03/19 22:00 04/03/19 21:29 Toprol Xl - PO 50 mg BID MARANDA Administration Polyethylene Glycol 17 gm 04/03/19 11:45 04/03/19 14:14 Miralax (For Daily Use) - PO 17 gm DAILY MARANDA Administration Thiamine HCl 200 mg 04/03/19 14:00 04/04/19 06:41 Vitamin B1 Injection - IVPB 04/06/19 13:59 200 mg TID MARANDA Administration ASSESSMENT/PLAN: ATTENDING PHYSICIAN STATEMENT I saw and evaluated the patient. I reviewed the resident's note and discussed the case with the resident. I agree with the resident's findings and plan as documented. SUBJECTIVE: OBJECTIVE: ASSESSMENT AND PLAN:
[2019-04-04] MEDS: ALBUTEROL SO4 2.5/IPRATROPIUM 0.5 INH SOL 3 ML VIAL.NEB. NEB SCH ×2 (07:35→11:25)
[2019-04-04 08:33] LABS: BASO % 0.3 % (0-2.0); EOS % 4.2 % (0-4.5); HEMATOCRIT 37.7 % (35.4-49); HEMOGLOBIN 12.8 GM/dL (11.7-16.9); LYMPH % 9.9 % (8-40); MCH 29.2 pg (25.7-33.7); MCHC 33.9 g/dl (32.0-35.9); MEAN CELL VOLUME 86.2 fl (80-96); MEAN PLT VOLUME 8.2 fl (7.5-11.1); MONO % 9.6 % (3.8-10.2); PLATELET COUNT 161 K/MM3 (134-434); RBC 4.37 M/mm3 (4.00-5.60); RDW 14.5 % (11.9-15.9); WHITE BLOOD COUNT 8.4 K/mm3 (4.0-10.0)
[2019-04-04 08:43] LABS: POTASSIUM 4.1 mmol/L (3.5-5.1)
[2019-04-04 09:48] VITALS: PULSE 88
[2019-04-04] MEDS: metoPROLOL SUCCINATE 25 MG TAB.SR.24H (FP) PO SCH (09:55)
[2019-04-04] MEDS: ASPIRIN COATED 81 MG TABLET.EC PO SCH (09:56)
[2019-04-04] MEDS ORDERED: CLOPIDOGREL BISULFATE 75 MG TABLET (FP) PO SCH (10:00)
[2019-04-04] MEDS ORDERED: LISINOPRIL 10 MG TABLET (FP) PO SCH (10:00)
[2019-04-04] MEDS: POLYETHYLENE GLYCOL 3350 119 GM BTL PO SCH (10:02)
[2019-04-04 10:44] LABS: ALBUMIN 2.9 g/dl (3.4-5.0); BILIRUBIN,DIRECT 0.3 mg/dL (0.0-0.2); BILIRUBIN,TOTAL 1.1 mg/dL (0.2-1); BLOOD UREA NITROGEN 14.1 mg/dL (7-18); CALCIUM 7.9 mg/dL (8.5-10.1); CREATININE 0.8 mg/dL (0.55-1.3); TOT PROT 5.5 g/dl (6.4-8.2)
--- NOTE | 2019-04-04 14:17 | PN ---
Teaching Attending Note Name of Resident: Surinder Leary ATTENDING PHYSICIAN STATEMENT I saw and evaluated the patient. I reviewed the resident's note and discussed the case with the resident. I agree with the resident's findings and plan as documented with exceptions below. SUBJECTIVE: Patient seen and examined. no complaints, wants to go home. OBJECTIVE: Vital Signs Period Temp Pulse Resp BP Sys/[place] Pulse Ox Last 24 Hr 97.4 F-98.5 F 82-90 18-20 144-168/78-89 98-98 Intake & Output 04/01/19 04/02/19 04/03/19 04/04/19 23:59 23:59 23:59 23:59 Intake Total 862 Output Total 500 Balance 362 Weight 1102 lb 117 lb General: sitting in bed in no acute distress chest: Decreased effort, no rales or wheezing Abdomen:Soft, NT Extremities: no edema Neuro: AA, non fluent aphasia, RUE spasticity, unchanged exam, more awake and interactive today Home Medications Medication Instructions Recorded Ranitidine [Zantac -] 150 mg PO BID 03/19/13 Atorvastatin Ca [Lipitor] 40 mg PO HS #30 tablet 11/22/17 Clopidogrel Bisulfate [Plavix -] 75 mg PO DAILY #30 tablet 11/22/17 Lisinopril [Prinivil] 10 mg PO DAILY #60 tablet 11/22/17 Albuterol 2.5/Ipratropium 0.5 1 neb IH QID 04/02/19 [Duoneb -] Budesonide 1 neb IH DAILY 04/03/19 Ipratropium/Albuterol Sulfate 3 ml IH Q4HWA 04/03/19 [Iprat-Albut 0.5-3(2.5) mg/3 ml] Metoprolol Succinate [Toprol XL -] 50 mg PO BID #60 tab.sr.24h 04/04/19 Polyethylene Glycol 3350 [Miralax 17 gm PO DAILY #1 bottle 04/04/19 119 gm Btl -] Laboratory Results - last 24 hr 04/04/19 04/04/19 04/04/19 06:57 06:57 06:57 WBC 8.4 RBC 4.37 Hgb 12.8 Hct 37.7 MCV 86.2 MCH 29.2 MCHC 33.9 RDW 14.5 Plt Count 161 MPV 8.2 Absolute Neuts (auto) 6.4 Neutrophils % 76.0 Lymphocytes % 9.9 Monocytes % 9.6 Eosinophils % 4.2 Basophils % 0.3 Nucleated RBC % 0 Sodium 143 Potassium 4.1 Chloride 108 H Carbon Dioxide 29 Anion Gap 7 L BUN 14.1 Creatinine 0.8 Est GFR (CKD-EPI)AfAm 97.78 Est GFR (CKD-EPI)NonAf 84.37 Random Glucose 70 L Calcium 7.9 L Phosphorus 3.0 Magnesium 2.0 Total Bilirubin 1.1 H Direct Bilirubin 0.3 H AST 19 ALT 25 Alkaline Phosphatase 53 Total Protein 5.5 L Albumin 2.9 L Vitamin B12 613 TSH 1.25 D RPR Titer Nonreactive MRI brain results reviewed ASSESSMENT AND PLAN: 79 yof with PMHx of CAD s/p CABG, CVA with Right hemiparesis, Carotid stenosis s /p stent x2, COPD, HTN, HLD, Former Smoker, PEG tube with removal admitted with slurred speech, found with fever -?Slurred speech r/o CVA -Dehydration -SIRS, ?In the setting of URI -CAD s/p CABG/Angina -Carotid stensos s/p stent x 2 -COPD -HTN -HLD -H/o PEG tube with removal -Constipation Plan: Improved, neurology input noted. MRI brain neg for acute CVA Carotid duplex/2D echo results noted. No further fevers. Urine cultures noted. Clean ua on admission SIRS on presentation with no clear etiology. Currently improved. Will treat with 5 days of cefuroxime d/c home with family Discussed with patient and nursing.
[2019-04-04 15:23] VITALS: BP 151/85; TEMP 98.2
--- NOTE | 2019-04-04 15:48 | DS ---
Physical Exam: SUBJECTIVE: Patient seen and examined at bed side, no new complain feel at his base lone and like to go home with family , no fever no chills,no dizziness no light headedness, no chest pain OBJECTIVE: Vital Signs Period Temp Pulse Resp BP Sys/De Leon Pulse Ox Last 24 Hr 97.4 F-98.5 F 82-90 18-20 144-168/78-89 98-98 PHYSICAL EXAM GENERAL: AAOx3 in NAD HEAD: NC/AT EYES: EOMI, Conjunctiva clear, sclera anicteric ENT: dry mucous membrane NECK: Supple, no JVD LUNGS: CTA B/L, no crackles no wheezing no accessory muscle use. HEART: RRR, NSR, normal s1, s2, murmur no M/R/G ABDOMEN: Soft, ND, NT, +BS 4 Q, no CVA Tenderness LOWER EXTREMITIES: no edema, +2DP pulse, NEUROLOGICAL: upper ext spastic , LE strength 4/5 , non fluent speach, gait not observed.EOMI, residual Right facial drop skin: very dry ad scaly LABS Laboratory Results - last 24 hr 04/04/19 04/04/19 04/04/19 06:57 06:57 06:57 WBC 8.4 RBC 4.37 Hgb 12.8 Hct 37.7 MCV 86.2 MCH 29.2 MCHC 33.9 RDW 14.5 Plt Count 161 MPV 8.2 Absolute Neuts (auto) 6.4 Neutrophils % 76.0 Lymphocytes % 9.9 Monocytes % 9.6 Eosinophils % 4.2 Basophils % 0.3 Nucleated RBC % 0 Sodium 143 Potassium 4.1 Chloride 108 H Carbon Dioxide 29 Anion Gap 7 L BUN 14.1 Creatinine 0.8 Est GFR (CKD-EPI)AfAm 97.78 Est GFR (CKD-EPI)NonAf 84.37 Random Glucose 70 L Calcium 7.9 L Phosphorus 3.0 Magnesium 2.0 Total Bilirubin 1.1 H Direct Bilirubin 0.3 H AST 19 ALT 25 Alkaline Phosphatase 53 Total Protein 5.5 L Albumin 2.9 L Vitamin B12 613 TSH 1.25 D RPR Titer Nonreactive CBC, BMP 04/04/19 06:57 04/04/19 06:[address] (reviewed): Mod diffuse cerebral atrophy with deep sulci. Ex vaculo ventricular dilation. Scattered chronic infarct L frontoparietal cortex. MRI negative for acute pathology CT Chest Abdomen/Pelvic Extensive COPD changes again seen without gross interval change. No focal infiltrates are identified. Questionable 4.5 mm nodule in the right lower lobe, posteriorly medially No enlarged mediastinal or hilar lymph nodes are identified. Right renal upper pole simple cyst again seen without interval change. The gallbladder is not definitely identified. Moderate to large amount of fecal residue in the colon compatible with constipation. 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 Slightly enlarged prostate gland. A preliminary report was forwarded by the [facility] service, [employer] Echo cardiogram with mild TR, mild lV redused function, mild global hypokinesia of left ventricle, normal RV function , EKG ST, with pvc and incomplete RBBB, QTC 464 HOSPITAL COURSE: Date of Admission:04/02/19 Date of Discharge: 04/04/19 79 y/o M, presents to the ED for slurred speech and shortness of breath, Pt symptoms and cough, suspicious for URI pt was thought to have TIA due to slurred speech and pt monitored in tele for 24 hour , all wark up come back negative likley it s syncope due to dehydration and low oral intake pt might have some dementia due to microvasculr changes in his brain, MRI was repeated in 24 hour with no new acute pathology , neurology was consulted who recommend some thiamin for 3 days.speach and swallow was done who recommend soft diet . pt has HTN but not controlled he can resume Lisinopril 10 mg po daily and Metoprolol succ dose increased to 50 BID the following were found on his CT scan and needed to be followed up as out pt # small nodule RLL 4.[address] scan to be followed as out pt with repeat images in one year # 3cm Bladder diverticullar folow up out pt if there is any symptoms. # Enlarged prostate follow up out pt # right renal small cyst follow up as out pt. Pt can return to the hospital if his symtoms worsen he needs to follow up with his primary within one week and he needs to be under his family care , family agree with the plan. pt walk 150 steps with PT. Minutes to complete discharge: 45 Discharge Summary Reason For Visit: SEPSIS Current Active Problems History of stroke (Acute) CAD (coronary artery disease) (Chronic) COPD (chronic obstructive pulmonary disease) (Chronic) HLD (hyperlipidemia) (Chronic) HTN (hypertension) (Chronic) History of stroke with residual deficit (Chronic) Condition: Stable - Instructions Diet, Activity, Other Instructions: you presented to the hospital due to generalized weakness and loss of consciousness all work up come back negative , likely due to dehydration and not eating well and viral respiratory infection. your symptoms has improved and you will be send home. Please keep your self hydrated your blood pressure medicine metoprolol succinate increase to 50 mg twice daily. Antibiotic cefuroxime 500 mg twice daily for 5 days. Please resume all other home meds as before admission. Please monitor your blood pressure daily. * you were found to have small nodule 4.5 mm on right lung please follow up out pt with pulmonary and repeat CT scan in 6 months. * your prostate was enlarged at CT scan abdomen please follow up with urologist as out pt if you develop any urinary symptoms. You were found to have constipation , you can start using Miralax 17 mg daily as needed to help with bowl movement. Please follow up with your primary physician within one week. Dietary instructions: Small Bites, Chin Tuck/Down, Clear Pocket Food, Safe Rate, 1/2 tsp. at a time, Elevate head end of bed during feed, Out of bed in chair for meals Please note that your final urine culture results are currently pending and you will be notified if your antibiotic needs to be changed. Please make sure we have a direct reachable phone number to notify if any changes. if you develop fever , chills, chest pain or your symptoms worsen please return to emergency room. Referrals: Todd Garcia MD [Staff Physician] - Disposition: VNS/HOME HEALTH CARE - Home Medications Comprehensive Discharge Medication List: Ambulatory Orders Ranitidine [Zantac -] 150 mg PO BID 03/19/13 Atorvastatin Ca [Lipitor] 40 mg PO HS #30 tablet 11/22/17 Clopidogrel Bisulfate [Plavix -] 75 mg PO DAILY #30 tablet 11/22/17 Lisinopril [Prinivil] 10 mg PO DAILY #60 tablet 11/22/17 Albuterol 2.5/Ipratropium 0.5 [Duoneb -] 1 neb IH QID 04/02/19 Budesonide 1 neb IH DAILY 04/03/19 Ipratropium/Albuterol Sulfate [Iprat-Albut 0.5-3(2.5) mg/3 ml] 3 ml IH Q4HWA 09/21 Cefuroxime Axetil [Ceftin -] 500 mg PO BID #10 tablet 04/04/19 Metoprolol Succinate [Toprol XL -] 50 mg PO BID #60 tab.sr.24h 04/04/19 Polyethylene Glycol 3350 [Miralax 119 gm Btl -] 17 gm PO DAILY #1 bottle This patient is new to me today: No Emergency Visit: Yes ED Registration Date: 04/02/19 Care time: The patient presented to the Emergency Department on the above date and was hospitalized for further evaluation of their emergent condition. Critical Care patient: No - Discharge Referral Referred to [facility] Med P.C.: No ATTENDING PHYSICIAN STATEMENT I saw and evaluated the patient. I reviewed the resident's note and discussed the case with the resident. I agree with the resident's findings and plan as documented. SUBJECTIVE: OBJECTIVE: ASSESSMENT AND PLAN:
[2019-04-04] MEDS ORDERED: CEFUROXIME AXETIL 500 MG TABLET PO SCH (22:00)
== END 2019-04-04 15:49 | disposition home health service (06) | DRG 152 ==
LOC: JER 19:20 → JERBED 21:35 → J5S 04-03 00:59 → J4W 04-03 11:58
PROVIDERS: ADMIT Internal Medicine; ATTEND Hospitalist
DX: J06.9 Acute upper respiratory infection, unspecified (principal); G93.41 Metabolic encephalopathy; R65.10 Systemic inflammatory response syndrome (SIRS) of non-infectious origin without acute organ dysfunction; J44.9 Chronic obstructive pulmonary disease, unspecified; I10 Essential (primary) hypertension; E78.5 Hyperlipidemia, unspecified; I25.10 Atherosclerotic heart disease of native coronary artery without angina pectoris; Z95.1 Presence of aortocoronary bypass graft; E11.9 Type 2 diabetes mellitus without complications; R41.82 Altered mental status, unspecified; R50.9 Fever, unspecified; D72.829 Elevated white blood cell count, unspecified; I25.2 Old myocardial infarction; R00.0 Tachycardia, unspecified; I69.322 Dysarthria following cerebral infarction; F03.90 Unspecified dementia, unspecified severity, without behavioral disturbance, psychotic disturbance, mood disturbance, and anxiety; R29.702 NIHSS score 2; I69.398 Other sequelae of cerebral infarction; I45.10 Unspecified right bundle-branch block; R47.81 Slurred speech; N40.0 Benign prostatic hyperplasia without lower urinary tract symptoms; N28.1 Cyst of kidney, acquired; I69.320 Aphasia following cerebral infarction; E86.0 Dehydration; I65.29 Occlusion and stenosis of unspecified carotid artery; K59.00 Constipation, unspecified; R91.1 Solitary pulmonary nodule; N32.3 Diverticulum of bladder; R06.82 Tachypnea, not elsewhere classified
CPT/HCPCS: 36415; 70450-TC; 70551-TC; 71045-TC-FY; 71250-TC; 74176-TC; 80053; 81003; 82150; 82248; 82465; 82550; 82607; 82803; 82962; 83605; 83690; 83718; 83721; 83735; 84100; 84443; 84478; 84484; 85025; 85610; 85730; 86593; 86850; 86900; 86901; 87040; 87086; 87186; 93005; 93010; 93306-TC; 93880-TC; 94640; 97116-GP; 97161-GP; 99285-25; J1644; J7030

== ENCOUNTER 2019-09-22 13:55 | Inpatient (IN) | payer OTHER ==
[2019-09-22] MEDS ORDERED: ALBUTEROL SO4 2.5/IPRATROPIUM 0.5 INH SOL 3 ML VIAL.NEB. NEB ONE ×6 (14:07→21:24)
[2019-09-22] MEDS ORDERED: methylPREDNISolone NA SUCC 125 MG/2 ML VIAL IVPUSH ONE (14:07)
--- NOTE | 2019-09-22 14:07 | PDOC ---
Rapid Medical Evaluation Chief Complaint: Respiratory Time Seen by Provider: 09/22/19 14:05 Medical Evaluation: Allergies Allergy/AdvReac Type Severity Reaction Status Date / Time No Known Allergies Allergy Verified 09/22/19 14:03 09/22/19 14:05 I performed a brief in-person evaluation of this patient. 79-year-old male history of COPD, CVA 2012 with residual right-sided weakness, CAD s/p CABG carotid artery stenosis s/p stent, HTN, HLD presents twith diffuse abdominal pain, several days of productive cough, wheezing, and SOB unrelieved by albuterol nebulizers. Pertinent physical exam findings: Tachypneic, resp distress speaking half sentences Expiratory wheezing in all lung bledsoe with poor air entry bilaterally. Abdomen diffusely tender Patient transported to Main ED. I have ordered the following: EKG Portable CXR Cardiac labs DuoNeb followed by albuterol nebs Solumedrol 125mg IVP Discharge Disposition - Diagnosis Respiratory distress - Referrals - Patient Instructions - Post Discharge Activity
[2019-09-22 14:08] VITALS: BMI 20.9
--- NOTE | 2019-09-22 14:45 | PDOC ---
Attending Attestation - Resident Resident Name: JadNir faye - ED Attending Attestation I have performed the following: I have examined & evaluated the patient, The case was reviewed & discussed with the resident, I agree w/resident's findings & plan, Exceptions are as noted - HPI HPI: 79 yo M history [place] s/p CABG and stents, carotid stenosis, CVA (R residual weakness), COPD, HTN, HL presents with 1 week of abdominal pain and 1 day of SOB with wheezing. Pt has been complaining of diffuse abd pain, worst in the suprapubic region. +Constipation, +NBNB vomiting. Cough produces yellow sputum. No fever. - Physicial Exam PE: GENERAL: Awake, alert, and fully oriented, in no acute distress HEAD: No signs of trauma EYES: PERRLA, EOMI, sclera anicteric, conjunctiva clear ENT: Auricles normal inspection, hearing grossly normal, nares patent, oropharynx clear without exudates. Moist mucosa NECK: Normal ROM, supple, no lymphadenopathy, JVD, or masses LUNGS: Dec air entry B/L, +exp wheezes B/L. Able to speak full sentendes. HEART: Regular rate and rhythm, normal S1 and S2, no murmurs, rubs or gallops ABDOMEN: Soft, nontender, normoactive bowel sounds. No guarding, no rebound. No masses EXTREMITIES: Normal range of motion, no edema. No clubbing or cyanosis. No cords, erythema, or tenderness NEUROLOGICAL: Cranial nerves II through XII grossly intact. Normal speech, normal gait. Motor and sensation intact SKIN: Warm, dry, normal turgor, no rashes or lesions noted. - Medical Decision Making 79 M with abd pain, COPD exacerbation. Will give nebs, steroids. CT a/p to r/o any intraabdominal pathology.
[2019-09-22] MEDS: ALBUTEROL SO4 0.083% IH SOL 2.5 MG/3 ML VIAL.NEB. NEB SCH ×3 (14:50→16:02)
--- NOTE | 2019-09-22 14:56 | PDOC ---
History of Present Illness - General Chief Complaint: Respiratory Stated Complaint: ASTHMA Time Seen by Provider: 09/22/19 14:05 History Source: Patient Exam Limitations: No Limitations - History of Present Illness Initial Comments: 09/22/19 14:48 79 yo male pmh [place] s/p CABG and stents (3 years ago), carotid artery stenosis, CVA w/some residual R sided weakness (2012), COPD, HTN, HLD on Plavix presents to the ED for 1 week of diffuse abdominal pain and 1 days of SOB. Daughter at the bedside and helps provide HPI. Pt reported to complain of worsening abdominal pain that is diffuse, however if pt were to isolate pain, it is worse in the suprapubic region. Pt reports 2 days of no BM which is unusal for him. States after episodes of pain, pt usually ends up having a COPD exacerbation. Pt reported to have increased work of breathing last night and today, yellow sputum production and coughing with NB/NB vomiting. Pt used Budesinide and Albuterol however, pt ran out of home Duo nebs 2 weeks ago. Denies F/C, CP, back pain, recent travel, calf tenderness. Past History - Past Medical History Allergies/Adverse Reactions: Allergies Allergy/AdvReac Type Severity Reaction Status Date / Time No Known Allergies Allergy Verified 09/22/19 14:03 Home Medications: Ambulatory Orders Ranitidine [Zantac -] 150 mg PO BID 03/19/13 Atorvastatin Ca [Lipitor] 40 mg PO HS #30 tablet 11/22/17 Clopidogrel Bisulfate [Plavix -] 75 mg PO DAILY #30 tablet 11/22/17 Lisinopril [Prinivil] 10 mg PO DAILY #60 tablet 11/22/17 Albuterol 2.5/Ipratropium 0.5 [Duoneb -] 1 neb IH QID 04/02/19 Budesonide 1 neb IH DAILY 04/03/19 Polyethylene Glycol 3350 [Miralax 119 gm Btl -] 17 gm PO DAILY #1 bottle Tamsulosin HCl 0.4 mg PO DAILY 09/23/19 Metoprolol Succinate [Toprol Xl] 100 mg PO BID #60 tab.er.24h 09/26/19 predniSONE [Deltasone -] 60 mg PO DAILY 1 Days #3 tablet 09/26/19 Anemia: No Asthma: Yes Cancer: No Cardiac Disorders: Yes (carotid "blockage", CABG x3) CVA: Yes (10/2012; residual r arm weakness) COPD: Yes CHF: No Dementia: No Diabetes: No GI Disorders: No Disorders: No HTN: Yes Hypercholesterolemia: Yes Liver Disease: No Seizures: No Thyroid Disease: No - Surgical History Abdominal Surgery: Yes (PEG tube W/REMOVAL) Appendectomy: No Cardiac Surgery: Yes (CABG x3;) Cholecystectomy: No Lung Surgery: No Neurologic Surgery: Yes (CAROTID STENTS X 2 02/13) Orthopedic Surgery: No - Immunization History Immunization Up to Date: Yes - Psycho Social/Smoking Cessation Hx Smoking Status: Yes Smoking History: Never smoked Have you smoked in the past 12 months: No Number of Cigarettes Smoked Daily: 0 If you are a former smoker, when did you quit?: over 20 years ago 'Breaking Loose' booklet given: 06/08/16 Hx Alcohol Use: No Drug/Substance Use Hx: No Substance Use Type: None Hx Substance Use Treatment: No Review of Systems - Review of Systems Constitutional: No: Chills, Fever Respiratory: Yes: Shortness of Breath, Productive cough Cardiac (ROS): No: Chest Pain, Edema ABD/GI: Yes: Constipated, Nausea, Vomiting. No: Diarrhea : Yes: Burning. No: Dysuria, Frequency, Flank Pain Musculoskeletal: No: Back Pain Integumentary: No: Change in Color Neurological: No: Weakness *Physical Exam - Vital Signs Last Vital Signs Temp Pulse Resp BP Pulse Ox 97.5 F L 103 H 24 H 118/63 96 09/22/19 14:03 09/22/19 14:03 09/22/19 14:03 09/22/19 14:03 09/22/19 14:03 - Physical Exam General Appearance: Yes: Nourished, Appropriately Dressed. No: Apparent Distress HEENT: positive: EOMI, SAURABH Neck: positive: Supple. negative: Carotid bruit Respiratory/Chest: positive: Rapid RR, Decreased Breath Sounds, Wheezing. negative: Respiratory Distress, Accessory Muscle Use, Crackles, Rales, Rhonchi, Stridor Cardiovascular: positive: Regular Rhythm, Regular Rate, S1, S2. negative: Edema , JVD, Murmur Vascular Pulses: Dorsalis-Pedis (R): 4+, Doralis-Pedis (L): 4+ Gastrointestinal/Abdominal: positive: Flat, Soft. negative: Pulsatile Mass, Protuberent, Distended, Guarding, Rebound, Tenderness Musculoskeletal: negative: CVA Tenderness Extremity: positive: Normal Capillary Refill, Normal Inspection, Normal Range of Motion Integumentary: positive: Normal Color, Dry, Warm Neurologic: positive: Fully Oriented, Alert, Normal Mood/Affect, Normal Response ED Treatment Course - LABORATORY CBC & Chemistry Diagram: 09/26/19 05:40 09/26/19 05:40 Medical Decision Making - Medical Decision Making 09/22/19 17:33 79 yo male pmh [place] s/p CABG and stents (3 years ago), carotid artery stenosis, CVA w/some residual R sided weakness (2012), COPD, HTN, HLD on Plavix presents to the ED for 1 week of diffuse abdominal pain and 1 days of SOB. Daughter at the bedside and helps provide HPI. Pt reported to complain of worsening abdominal pain that is diffuse, however if pt were to isolate pain, it is worse in the suprapubic region. Pt reports 2 days of no BM which is unusal for him. States after episodes of pain, pt usually ends up having a COPD exacerbation. Pt reported to have increased work of breathing last night and today, yellow sputum production and coughing with NB/NB vomiting. Pt used Budesinide and Albuterol however, pt ran out of home Duo nebs 2 weeks ago. Denies F/C, CP, back pain, recent travel, calf tenderness. vitals show elevated RR 24 and HR 103 with decreased breath sounds and bilateral wheezing Pt give steroids and duonebs for COPD exacerbation Labs, CXR, UA and CTAP pending WBC wnl, no acute changes on CXR CTAP neg for acute pathology, pt to be admitted for COPD exacerbation Discharge - Discharge Information Problems reviewed: Yes Clinical Impression/Diagnosis: Respiratory distress COPD (chronic obstructive pulmonary disease) Qualifiers: COPD type: unspecified COPD Qualified Code(s): J44.9 - Chronic obstructive pulmonary disease, unspecified Condition: Improved Disposition: HOME - Admission Yes - Follow up/Referral - Patient Discharge Instructions - Post Discharge Activity
[2019-09-22] MEDS ORDERED: methylPREDNISolone NA SUCC 125 MG/2 ML VIAL ONE (15:04)
[2019-09-22 15:44] LABS: BASO % 0.4 % (0-2.0); EOS % 0.7 % (0-4.5); HEMATOCRIT 44.7 % (35.4-49); HEMOGLOBIN 14.8 GM/dL (11.7-16.9); MCH 28.3 pg (25.7-33.7); MCHC 33.1 g/dl (32.0-35.9); MEAN CELL VOLUME 85.7 fl (80-96); MEAN PLT VOLUME 8.5 fl (7.5-11.1); MONO % 13.7 % (3.8-10.2); NEUT % 73.2 % (42.8-82.8); PLATELET COUNT 177 K/MM3 (134-434); RBC 5.22 M/mm3 (4.00-5.60); RDW 14.7 % (11.9-15.9); WHITE BLOOD COUNT 6.4 K/mm3 (4.0-10.0)
[2019-09-22 16:06] LABS: INR 1.17 (0.83-1.09); PROTHROMBIN TIME (PATIENT) 13.8 SEC (9.7-13.0)
[2019-09-22 16:12] LABS: ALBUMIN 4.1 g/dl (3.4-5.0); BILIRUBIN,TOTAL 1.7 mg/dL (0.2-1); BLOOD UREA NITROGEN 14.6 mg/dL (7-18); CALCIUM 9.1 mg/dL (8.5-10.1); CREATININE 1.1 mg/dL (0.55-1.3); POTASSIUM 4.1 mmol/L (3.5-5.1); TOT PROT 7.8 g/dl (6.4-8.2)
[2019-09-22 21:50] LABS: URINE APPEARANCE CLEAR; URINE BILIRUBIN NEGATIVE (NEGATIVE); URINE COLOR YELLOW; URINE GLUCOSE (UA) NEGATIVE (NEGATIVE)
[2019-09-22 21:51] LABS: PH,URINE 5.5 (5.0-8.0); URINE KETONE NEGATIVE (NEGATIVE); URINE LEUK ESTERASE NEGATIVE (NEGATIVE); URINE NITRITE NEGATIVE (NEGATIVE); URINE PROTEIN 2+ (NEGATIVE)
[2019-09-22 21:53] LABS: HYALINE CASTS 7.42 /lpf (0-8); URINE BACTERIA 12.9 /hpf (NEGATIVE); URINE RBC 2.2 /hpf (0-4); URINE WBC 2.8 /hpf (0-5)
--- NOTE | 2019-09-22 22:20 | PN ---
Teaching Attending Note Name of Resident: Alonzo Cruz ATTENDING PHYSICIAN STATEMENT I saw and evaluated the patient. I reviewed the resident's note and discussed the case with the resident. I agree with the resident's findings and plan as documented. SUBJECTIVE: Patient is an 79 year old man with a PMH of [place] (s/p CABG and stents 3 years ago) , Psoriasis, Carotid artery stenosis, CVA with some residual right sided weakness (2012), COPD, HTN and HLD on Plavix presents to the ER for 1 week of diffuse abdominal pain and 1 day of SOB. Daughter at the bedside helped provide information. Patient reported to complain of worsening abdominal pain that is diffuse, however if patient were to isolate pain, it is worse in the suprapubic region. Patient reports 2 days of no bowel movement which is unusal for him. States after episodes of pain, patient usually ends up having a COPD exacerbation. Patient reported to have increased work of breathing last night and today, coughing with yellow sputum production and associated vomiting. Patient used Budesonide and Albuterol however he ran out of home Duonebs 2 weeks ago. Denies fever, chills, chest pain, back pain, recent travel or calf tenderness. Denies alcohol, tobacco or illicit drug use. No sick contacts. OBJECTIVE: Alert Vital Signs Period Temp Pulse Resp BP Sys/De Leon Pulse Ox Last 24 Hr 97.5 F-99.2 F 101-104 23-24 118-136/63-77 96-100 HEENT: No Jaundice, eye redness or discharge, PERRLA, EOMI. Normocephalic, atraumatic. External ears are normal and hearing is grossly intact. No nasal discharge. Neck: Supple, nontender. No palpable adenopathy or thyromegaly. No JVD Chest: Good effort. Wheezing. Clear to percussion. Heart: Regular. No S3, rub or murmur Abdomen: Not distended, soft, nontender and no HSM. No rebound or guarding. Normal bowel sounds. Ext: Peripheral pulses intact. No leg edema. Skin: Warm; very dry skin. No petechiae, rash or ecchymosis. Neuro: Alert. Oriented x3. CN 2-12 grossly intact. Sensation grossly intact in all four extremities and DTR are symmetric. Psych: Appropriate mood and affect. Good insight. Home Medications Medication Instructions Recorded Ranitidine [Zantac -] 150 mg PO BID 03/19/13 Atorvastatin Ca [Lipitor] 40 mg PO HS #30 tablet 11/22/17 Clopidogrel Bisulfate [Plavix -] 75 mg PO DAILY #30 tablet 11/22/17 Lisinopril [Prinivil] 10 mg PO DAILY #60 tablet 11/22/17 Albuterol 2.5/Ipratropium 0.5 1 neb IH QID 04/02/19 [Duoneb -] Budesonide 1 neb IH DAILY 04/03/19 Ipratropium/Albuterol Sulfate 3 ml IH Q4HWA 04/03/19 [Iprat-Albut 0.5-3(2.5) mg/3 ml] Cefuroxime Axetil [Ceftin -] 500 mg PO BID #10 tablet 04/04/19 Metoprolol Succinate [Toprol XL -] 50 mg PO BID #60 tab.sr.24h 04/04/19 Polyethylene Glycol 3350 [Miralax 17 gm PO DAILY #1 bottle 04/04/19 119 gm Btl -] Abnormal Lab Results 09/22/19 09/22/19 09/22/19 15:15 15:15 15:15 Monocytes % 13.7 H PT with INR INR Total Bilirubin 1.7 H AST 47 H Creatine Kinase 572 H CK-MB (CK-2) 4.3 H Troponin I 0.06 H Ur Specific [place] Urine Protein Urine Blood 09/22/19 09/22/19 15:15 19:50 Monocytes % PT with INR 13.80 H INR 1.17 H Total Bilirubin AST Creatine Kinase CK-MB (CK-2) Troponin I Ur Specific [place] 1.056 H Urine Protein 2+ H Urine Blood 1+ H ASSESSMENT AND PLAN: 1. COPD exacerbation - Likely precipitated by nonadherence to therapy. CXR shows hyperinflation, but no acute infiltrate. Got multiple doses of Albuterol and solumedrol in the ER. Flu swab is negative. Elevated troponin likely due to demand ischemia - will trend troponin. EKG shows NSR, LAD, IRBBB and ST-T wave changes suggestive of lateral ischemai - unchanged from prior EKGs. Will treat with solumedrol, duoneb, symbicort, azithromycin and oxygen. The only major abnormalities noted on CT abdomen/pelvis with IV and PO contrast were " distended urinary bladder with diverticula, minimal dilatation of pancreatic duct, moderate stool collection and enlarged prostate". Will trend bilirubin and get RUQ sonogram if hyperbilirubinemia worsens. Repeat urinalysis in view of hematuria and proteinuria. Will continue comprehensive care for all of patients comorbid conditions including topical agents for psoriatic skin lesions. 2. Hypertension - Restart suitable outpatient antihypertensive drugs when clinically appropriate. 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 Nonpharmacologic measures to control hypertension like weight loss , salt restriction and exercise discussed. Importance of adherence to treatment regimen and attainment of normotension emphasized. 3. DVT prophylaxis - Lovenox 40 mg SQ q 24 hours. 4. Advance directives - Full code
[2019-09-23] MEDS ORDERED: AZITHROMYCIN IVPB 500 MG in DEXTROSE 5%-WATER - 250 ML IVPB ONE (00:12)
--- NOTE | 2019-09-23 00:21 | HP ---
CHIEF COMPLAINT: SOB for 3 weeks with productive cough for a few days Abdominal pain for 3 weeks with nausea and NBNB vomiting for 1 week PCP: Dr. Caruso HISTORY OF PRESENT ILLNESS: This is an 79 year old male with PMH significant for COPD, CVA, CAD, HTN, HLD. He presented to the ER with complaints of SOB for 3 weeks associated with a worsening productive cough over the past few days, along with abdominal painwith dysuria for the past 3 weeks. His SOB began gradually 3 weeks ago, associated with a worsening productive cough over the past few days. The cough has been productive with greenish sputum , but no blood. Of note, he has been without his duonebs medication for the past 2 weeks. He denies any chest pain, palpitations, orthopnea, or PND. There are no identifiable inciting events. The abdominal pain is located in the RLQ, started gradually, is intermittent in nature, 8/10 in intensity, non radiating, with no worsening or alleviating factors. The pain is not related to food consumption or positioning. He has had associated constipation (last BM yesterday) intermittent vomiting (NBNB) for the past 1 week, dysuria, urinary urgency, but no diarrhea or melena. ER course was notable for: (1) 3x duonebs (2) Trop 0.03 -> 0.06 (3) CT PA: BB poorly visualized, minimal dilatation of pancreatic duct(enlarged prostate, rt renal cyst on pole 1.9cm, evidence of constipation, small bladder diverticulae) Recent Travel: denies PAST MEDICAL HISTORY: COPD CVA 2012, R residual weakness CAD 3 years ago, stents placed HTN, HLD PAST SURGICAL HISTORY: CAD, stents placed 3 years ago Social History: Smoking: quit 10 years ago, smoked pipe tobacco for 20 years prior to that Alcohol: denies Drugs: denies Allergies No Known Allergies Allergy (Verified 09/22/19 14:03) HOME MEDICATIONS: Home Medications Medication Instructions Recorded Ranitidine [Zantac -] 150 mg PO BID 03/19/13 Atorvastatin Ca [Lipitor] 40 mg PO HS #30 tablet 11/22/17 Clopidogrel Bisulfate [Plavix -] 75 mg PO DAILY #30 tablet 11/22/17 Lisinopril [Prinivil] 10 mg PO DAILY #60 tablet 11/22/17 Albuterol 2.5/Ipratropium 0.5 1 neb IH QID 04/02/19 [Duoneb -] Budesonide 1 neb IH DAILY 04/03/19 Ipratropium/Albuterol Sulfate 3 ml IH Q4HWA 04/03/19 [Iprat-Albut 0.5-3(2.5) mg/3 ml] Cefuroxime Axetil [Ceftin -] 500 mg PO BID #10 tablet 04/04/19 Metoprolol Succinate [Toprol XL -] 50 mg PO BID #60 tab.sr.24h 04/04/19 Polyethylene Glycol 3350 [Miralax 17 gm PO DAILY #1 bottle 04/04/19 119 gm Btl -] REVIEW OF SYSTEMS CONSTITUTIONAL: Absent: fever, chills, diaphoresis, generalized weakness, malaise, loss of appetite, weight change HEENT: Absent: rhinorrhea, nasal congestion, throat pain, throat swelling, difficulty swallowing, mouth swelling, ear pain, eye pain, visual changes CARDIOVASCULAR: dizziness Absent: chest pain, syncope, palpitations, irregular heart rate, lightheadedness , peripheral edema RESPIRATORY: SOB Absent: cough, shortness of breath, dyspnea with exertion, orthopnea, wheezing, stridor, hemoptysis GASTROINTESTINAL: nausea, vomiting, constipation, Absent: abdominal pain, abdominal distension, nausea, vomiting, diarrhea, constipation, melena, hematochezia GENITOURINARY: dysuria, urgency Absent:frequency, hesitancy, hematuria, flank pain, genital pain MUSCULOSKELETAL: Absent: myalgia, arthralgia, joint swelling, back pain, neck pain SKIN: Absent: rash, itching, pallor HEMATOLOGIC/IMMUNOLOGIC: Absent: easy bleeding, easy bruising, lymphadenopathy, frequent infections ENDOCRINE: Absent: unexplained weight gain, unexplained weight loss, heat intolerance, cold intolerance NEUROLOGIC: Absent: headache, focal weakness or paresthesias, dizziness, unsteady gait, seizure, mental status changes, bladder or bowel incontinence PSYCHIATRIC: Absent: anxiety, depression, suicidal or homicidal ideation, hallucinations. PHYSICAL EXAMINATION Vital Signs - 24 hr 09/22/19 09/22/19 09/22/19 14:03 14:08 18:08 Temperature 97.5 F L 98.6 F Pulse Rate 103 H Pulse Rate [ 101 H Left Radial] Respiratory 24 H 23 H Rate Blood Pressure 118/63 Blood Pressure 127/71 [Left Arm] O2 Sat by Pulse 96 98 100 Oximetry (%) 09/22/19 20:04 Temperature 99.2 F Pulse Rate Pulse Rate [ 104 H Left Radial] Respiratory Rate Blood Pressure Blood Pressure 136/77 [Left Arm] O2 Sat by Pulse 97 Oximetry (%) GENERAL: AOx1 HEAD: Normal with no signs of trauma. EYES: Pupils equal, round and reactive to light, extraocular movements intact, sclera anicteric, conjunctiva clear. No lid lag. EARS, NOSE, THROAT: Ears normal, nares patent, oropharynx clear without exudates. Dry mucous membranes. NECK: Normal range of motion, supple without lymphadenopathy, JVD, or masses. LUNGS: Breath sounds diminished B/L, B/L expiratory wheezes heard, no crackles. No accessory muscle use. HEART: Regular rate and rhythm, normal S1 and S2 without murmur, rub or gallop. ABDOMEN: Soft, LLQ rebound tenderness but no tenderness to palpation, Rovsing's , Psoas, Kowalski's negative, normoactive BS LOWER EXTREMITIES: 2+ pulses, warm, well-perfused. No calf tenderness. No peripheral edema. NEUROLOGICAL: Rt sided motor strength 4/5, left sided 5/5, sensations intact B/L PSYCHIATRIC: Cooperative. Good eye contact. Appropriate mood and affect. SKIN: Scaly, dry skin on arms and legs B/L Laboratory Results - last 24 hr 09/22/19 09/22/19 09/22/19 15:15 15:15 15:15 WBC 6.4 RBC 5.22 Hgb 14.8 Hct 44.7 D MCV 85.7 MCH 28.3 MCHC 33.1 RDW 14.7 Plt Count 177 MPV 8.5 Absolute Neuts (auto) 4.7 Neutrophils % 73.2 Lymphocytes % 12.0 D Monocytes % 13.7 H Eosinophils % 0.7 D Basophils % 0.4 Nucleated RBC % 0 PT with INR INR Sodium 142 Potassium 4.1 Chloride 107 Carbon Dioxide 28 Anion Gap 8 BUN 14.6 Creatinine 1.1 Est GFR (CKD-EPI)AfAm 73.09 Est GFR (CKD-EPI)NonAf 63.07 Random Glucose 102 Calcium 9.1 Total Bilirubin 1.7 H AST 47 H ALT 39 Alkaline Phosphatase 87 Creatine Kinase 572 H Creatine Kinase Index 0.7 CK-MB (CK-2) 4.3 H Troponin I 0.06 H Total Protein 7.8 Albumin 4.1 Lipase 185 Urine Color Urine Appearance Urine pH Ur Specific [place] Urine Protein Urine Glucose (UA) Urine Ketones Urine Blood Urine Nitrite Urine Bilirubin Urine Urobilinogen Ur Leukocyte Esterase Urine WBC (Auto) Urine RBC (Auto) Urine Casts (Auto) U Epithel Cells (Auto) Urine Bacteria (Auto) Influenza A (Rapid) Influenza B (Rapid) 09/22/19 09/22/19 09/22/19 15:15 15:45 19:50 WBC RBC Hgb Hct MCV MCH MCHC RDW Plt Count MPV Absolute Neuts (auto) Neutrophils % Lymphocytes % Monocytes % Eosinophils % Basophils % Nucleated RBC % PT with INR 13.80 H INR 1.17 H Sodium Potassium Chloride Carbon Dioxide Anion Gap BUN Creatinine Est GFR (CKD-EPI)AfAm Est GFR (CKD-EPI)NonAf Random Glucose Calcium Total Bilirubin AST ALT Alkaline Phosphatase Creatine Kinase Creatine Kinase Index CK-MB (CK-2) Troponin I Total Protein Albumin Lipase Urine Color Yellow Urine Appearance Clear Urine pH 5.5 D Ur Specific [place] 1.056 H Urine Protein 2+ H Urine Glucose (UA) Negative Urine Ketones Negative Urine Blood 1+ H Urine Nitrite Negative Urine Bilirubin Negative Urine Urobilinogen 1.0 Ur Leukocyte Esterase Negative Urine WBC (Auto) 2.8 Urine RBC (Auto) 2.2 Urine Casts (Auto) 7.42 U Epithel Cells (Auto) 2.0 Urine Bacteria (Auto) 12.9 Influenza A (Rapid) Negative Influenza B (Rapid) Negative ASSESSMENT/PLAN: 79 year old male with PMH significant for COPD, CVA, CAD, HTN, HLD. He presented to the ER with complaints of SOB for 3 weeks associated with a worsening productive cough over the past few days, along with abdominal pain for the past 3 weeks. Admited for COPD exacerbation. #COPD exacerbation - Wheezing in examination, tachycardia, tachypnea, worsening productive cough unexplained by infectious etiology and with absence of CXR findings - Likely brought on by missed duonebs doses (daughter states he was without duonebs for 2 weeks) - Symptoms improved after 3x duonebs and 125mg Solu-medrol in ER - NC 3L O2 - Duonebs Q4 and Symbicort 2 puffs BID - Solumedrol 40mg Q8 - Azithromycin 500mg OD to decrease inflammation #Hyperbilirubinemia - Pt has RUQ pain with multiple episodes of vomiting and elevated Bili, will r/ o cholecystitis - Bili 1.7 with AST elevation 47, will trend bilirubin and order RUQ US if it worsens - CT AP: GB poorly visualized, minimal dilatation of pancreatic duct(enlarged prostate, rt renal cyst on pole 1.9cm, evidence of constipation, small bladder diverticulae) #Tropinemia 2/2 Demand ischemia - Demand ischemia may be due to COPD exacerbation along with prior comorbidities (CAD s/p CABG) - EKG shows NSR, LAD, IRBBB and ST-T wave changes suggestive of lateral ischemia with no significant changes compared to prior EKG - Trops 0.03 -> 0.06, will trend - LA ordered - CK 572, CKMB 4.3 #Hematuria - Pt reports dysuria and hematuria, will r/o UTI - UA: 1+ blood with 2RBC - UCx ordered #Proteinuria - BUN/Cr is normal, 14.6/1.1 - Currently unexplained, will repeat UA #HTN - Resume home meds #HLD - Resume home meds #FEN - Na controlled diet #DVT - Lovenox 40mg #Dispo - Tele monitoring due to possible demand ischemia Visit type - Emergency Visit Emergency Visit: Yes ED Registration Date: 09/22/19 Care time: The patient presented to the Emergency Department on the above date and was hospitalized for further evaluation of their emergent condition. - New Patient This patient is new to me today: Yes Date on this admission: 09/23/19 - Critical Care Critical Care patient: No ATTENDING PHYSICIAN STATEMENT I saw and evaluated the patient. I reviewed the resident's note and discussed the case with the resident. I agree with the resident's findings and plan as documented. SUBJECTIVE: OBJECTIVE: ASSESSMENT AND PLAN:
[2019-09-23] MEDS: ALBUTEROL SO4 0.083% IH SOL 2.5 MG/3 ML VIAL.NEB. NEB SCH (03:18)
[2019-09-23] MEDS ORDERED: AZITHROMYCIN IVPB 500 MG/250 ML BAG IVPB ONE (04:27)
[2019-09-23] MEDS ORDERED: ALBUTEROL SO4 2.5/IPRATROPIUM 0.5 INH SOL 3 ML VIAL.NEB. NEB ONE (04:27)
[2019-09-23] MEDS ORDERED: methylPREDNISolone NA SUCC 40 MG/1 ML VIAL ONE ×2 (04:28→11:34)
[2019-09-23] MEDS: ALBUTEROL SO4 2.5/IPRATROPIUM 0.5 INH SOL 3 ML VIAL.NEB. NEB SCH ×5 (04:40→21:10)
[2019-09-23] MEDS: methylPREDNISolone NA SUCC 40 MG/1 ML VIAL IVPUSH SCH ×2 (04:53→11:37)
[2019-09-23 08:11] LABS: BASO % 0.1 % (0-2.0); HEMATOCRIT 39.1 % (35.4-49); HEMOGLOBIN 13.3 GM/dL (11.7-16.9); MCH 28.7 pg (25.7-33.7); MCHC 33.9 g/dl (32.0-35.9); MEAN CELL VOLUME 84.7 fl (80-96); MEAN PLT VOLUME 8.7 fl (7.5-11.1); MONO % 3.3 % (3.8-10.2); NEUT % 88.6 % (42.8-82.8); PLATELET COUNT 162 K/MM3 (134-434); RBC 4.62 M/mm3 (4.00-5.60); RDW 14.2 % (11.9-15.9); WHITE BLOOD COUNT 5.9 K/mm3 (4.0-10.0)
[2019-09-23 08:33] LABS: BILIRUBIN,TOTAL 1.1 mg/dL (0.2-1); BLOOD UREA NITROGEN 14.6 mg/dL (7-18); CALCIUM 8.2 mg/dL (8.5-10.1); CREATININE 0.9 mg/dL (0.55-1.3); POTASSIUM 4.1 mmol/L (3.5-5.1)
[2019-09-23] MEDS ORDERED: AZITHROMYCIN IVPB 500 MG/250 ML BAG IVPB SCH (10:00)
[2019-09-23] MEDS: FAMOTIDINE 20 MG TABLET PO SCH ×2 (11:01→21:29)
[2019-09-23] MEDS: TAMSULOSIN HCL 0.4 MG CAP PO SCH (11:01)
[2019-09-23] MEDS: CLOPIDOGREL BISULFATE 75 MG TABLET (FP) PO SCH (11:02)
[2019-09-23] MEDS: LISINOPRIL 10 MG TABLET (FP) PO SCH (11:02)
[2019-09-23 11:23] LABS: PH,URINE 5.5 (5.0-8.0); URINE APPEARANCE CLEAR; URINE BILIRUBIN NEGATIVE (NEGATIVE); URINE COLOR YELLOW; URINE GLUCOSE (UA) NEGATIVE (NEGATIVE); URINE KETONE TRACE (NEGATIVE); URINE PROTEIN 30 (NEGATIVE)
[2019-09-23 11:24] LABS: EPI CELLS 2 /HPF (0-5/HPF); HYALINE CASTS 1 /lpf (0-8); URINE BACTERIA 10 /hpf (NEGATIVE); URINE LEUK ESTERASE N (NEGATIVE); URINE NITRITE NEGATIVE (NEGATIVE); URINE RBC 2 /hpf (0-4); URINE WBC 1 /hpf (0-5)
--- NOTE | 2019-09-23 11:29 | EKG ---
Test Reason : Blood Pressure : / mmHG Vent. Rate : 097 BPM Atrial Rate : 097 BPM P-R Int : 144 ms QRS Dur : 112 ms QT Int : 368 ms P-R-T Axes : -07 101 102 degrees QTc Int : 467 ms NORMAL SINUS RHYTHM RIGHTWARD AXIS INCOMPLETE RIGHT BUNDLE BRANCH BLOCK SEPTAL INFARCT , AGE UNDETERMINED ABNORMAL ECG Confirmed by Logan Sin MD ([id number]) on 09/23/2019 11:28:31 AM Referred By: Confirmed By:Logan Sin MD
--- NOTE | 2019-09-23 11:30 | EKG ---
Test Reason : Blood Pressure : / mmHG Vent. Rate : 096 BPM Atrial Rate : 096 BPM P-R Int : 140 ms QRS Dur : 110 ms QT Int : 366 ms P-R-T Axes : 075 -61 053 degrees QTc Int : 462 ms POOR DATA QUALITY, INTERPRETATION MAY BE ADVERSELY AFFECTED NORMAL SINUS RHYTHM LEFT AXIS DEVIATION INCOMPLETE RIGHT BUNDLE BRANCH BLOCK ABNORMAL ECG WHEN COMPARED WITH ECG OF 02-APR-2019 19:18, PREMATURE VENTRICULAR COMPLEXES ARE NO LONGER PRESENT CRITERIA FOR SEPTAL INFARCT ARE NO LONGER PRESENT NONSPECIFIC T WAVE ABNORMALITY NOW EVIDENT IN INFERIOR LEADS T WAVE INVERSION NOW EVIDENT IN LATERAL LEADS Confirmed by Logan Sin MD ([id number]) on 09/23/2019 11:29:43 AM Referred By: Confirmed By:Logan Sin MD
[2019-09-23] MEDS ORDERED: ENOXAPARIN NA (PORCINE) 40 MG/0.4 ML DISP.SYRIN SQ ONE (11:50)
[2019-09-23] MEDS: ENOXAPARIN NA (PORCINE) 40 MG/0.4 ML DISP.SYRIN SQ SCH (11:54)
[2019-09-23] MEDS: POLYETHYLENE GLYCOL 3350 119 GM BTL PO SCH (11:54)
[2019-09-23] MEDS ORDERED: predniSONE 20 MG TABLET (UD) PO SCH (12:00)
[2019-09-23 14:21] LABS: BILIRUBIN,DIRECT 0.3 mg/dL (0.0-0.2)
[2019-09-23] MEDS ORDERED: ALBUTEROL SO4 0.083% IH SOL 2.5 MG/3 ML VIAL.NEB. NEB PRN (15:48)
[2019-09-23] MEDS: BUDESONIDE/FORMETEROL FUMARATE 80/4.5 mcg INHALER IH SCH ×2 (16:00→21:54)
--- NOTE | 2019-09-23 16:01 | PN ---
Physical Exam: SUBJECTIVE: Patient seen and examined 79 y/o M, pmh COPD, CVA, CAD, HTN, HLD, presents to the ED c/o of [id number] associated w/ worsening productive cough admitted for COPD exacerbation. Pt is much improved today. No overnight events. C/o of no pain or issues. Breathing better on RA. Denies f/c/n/v/d/sob,chest pain, abdominal pain. OBJECTIVE: Vital Signs Period Temp Pulse Resp BP Sys/[place] Pulse Ox Last 24 Hr 97.9 F-99.2 F 95-104 20-23 127-140/59-80 97-100 GENERAL: The patient is awake, alert, and fully oriented, in no acute distress. EYES: PERRL, extraocular movements intact, sclera anicteric, conjunctiva clear. No ptosis. ENT: Dry mucous membranes. NECK: Trachea midline, full range of motion, supple. LUNGS: Breath sounds equal, clear to auscultation bilaterally, moderate wheezes b/l, no crackles, HEART: Regular rate and rhythm, S1, S2 without murmur, rub or gallop. ABDOMEN: Soft, nontender, nondistended, normoactive bowel sounds, no guarding EXTREMITIES: 2+ pulses, warm, well-perfused, no edema. NEUROLOGICAL: Cranial nerves II through XII grossly intact. Normal speech, gait not observed. PSYCH: Normal mood, normal affect. SKIN: Extensive psoriasis- scaling and peeling of the skin over the entire surface of the body. No open wounds, no exposed subcutaneous skin. No bleeding, no ulcers. Laboratory Results - last 24 hr CBC,CMP WBC 5.9 K/mm3 (4.0-10.0) 09/23/19 06:52 RBC 4.62 M/mm3 (4.00-5.60) 09/23/19 06:52 Hgb 13.3 GM/dL (11.7-16.9) 09/23/19 06:52 Hct 39.1 % (35.4-49) 09/23/19 06:52 MCV 84.7 fl (80-96) 09/23/19 06:52 MCH 28.7 pg (25.7-33.7) 09/23/19 06:52 MCHC 33.9 g/dl (32.0-35.9) 09/23/19 06:52 RDW 14.2 % (11.9-15.9) 09/23/19 06:52 Plt Count 162 K/MM3 (134-434) 09/23/19 06:52 MPV 8.7 fl (7.5-11.1) 09/23/19 06:52 Absolute Neuts (auto) 5.2 K/mm3 (1.5-8.0) 09/23/19 06:52 Neutrophils % 88.6 % (42.8-82.8) H D 09/23/19 06:52 Lymphocytes % 8.0 % (8-40) D 09/23/19 06:52 Monocytes % 3.3 % (3.8-10.2) L 09/23/19 06:52 Eosinophils % 0.0 % (0-4.5) D 09/23/19 06:52 Basophils % 0.1 % (0-2.0) 09/23/19 06:52 Nucleated RBC % 0 % (0-0) 09/23/19 06:52 Sodium 138 mmol/L (136-145) 09/23/19 06:52 Potassium 4.1 mmol/L (3.5-5.1) 09/23/19 06:52 Chloride 106 mmol/L (98-107) 09/23/19 06:52 Carbon Dioxide 27 mmol/L (21-32) 09/23/19 06:52 Anion Gap 6 MMOL/L (8-16) L 09/23/19 06:52 BUN 14.6 mg/dL (7-18) 09/23/19 06:52 Creatinine 0.9 mg/dL (0.55-1.3) 09/23/19 06:52 Est GFR (CKD-EPI)AfAm 93.16 09/23/19 06:52 Est GFR (CKD-EPI)NonAf 80.38 09/23/19 06:52 POC Glucometer 133 UNITS (80-120) 09/23/19 10:52 Random Glucose 179 mg/dL (74-106) H 09/23/19 06:52 Calcium 8.2 mg/dL (8.5-10.1) L 09/23/19 06:52 Total Bilirubin 1.1 mg/dL (0.2-1) H 09/23/19 06:52 Direct Bilirubin 0.3 mg/dL (0.0-0.2) H 09/23/19 06:52 AST 47 U/L (15-37) H 09/22/19 15:15 ALT 39 U/L (13-61) 09/22/19 15:15 Alkaline Phosphatase 87 U/L (45-117) 09/22/19 15:15 Creatine Kinase 572 U/L (26-308) H 09/22/19 15:15 Creatine Kinase Index 0.7 % (0.0-5.0) 09/22/19 15:15 CK-MB (CK-2) 4.3 ng/mL (0.5-3.6) H 09/22/19 15:15 Troponin I 0.03 ng/ml (0.00-0.05) 09/23/19 06:52 Total Protein 7.8 g/dl (6.4-8.2) 09/22/19 15:15 Albumin 4.1 g/dl (3.4-5.0) 09/22/19 15:15 Lipase 185 U/L (73-393) 09/22/19 15:15 Active Medications Current Medications Albuterol/Ipratropium (Duoneb -) 1 amp NEB RQ4H [facility] Last Admin: 09/23/19 08:33 Dose: 1 amp Atorvastatin Calcium (Lipitor -) 40 mg PO HS [facility] Budesonide/Formoterol Fumarate (Symbicort 80/4.5mcg -) 2 puff IH BID [facility] Clopidogrel Bisulfate (Plavix -) 75 mg PO DAILY [facility] Last Admin: 09/23/19 11:02 Dose: 75 mg Enoxaparin Sodium (Lovenox -) 40 mg SQ DAILY [facility] Last Admin: 09/23/19 11:54 Dose: 40 mg Famotidine (Pepcid -) 20 mg PO BID [facility] Last Admin: 09/23/19 11:01 Dose: 20 mg Lisinopril (Prinivil) 10 mg PO DAILY [facility] Last Admin: 09/23/19 11:02 Dose: 10 mg Metoprolol Succinate (Toprol Xl -) 50 mg PO BID [facility] Last Admin: 09/23/19 11:03 Dose: 50 mg Polyethylene Glycol (Miralax (For Daily Use) -) 17 gm PO DAILY [facility] Last Admin: 09/23/19 11:54 Dose: 17 grams Prednisone (Deltasone -) 60 mg PO DAILY [facility] Tamsulosin HCl (Flomax -) 0.4 mg PO DAILY@0830 [facility] Last Admin: 09/23/19 11:01 Dose: 0.4 mg Home Medications Medication Instructions Recorded Ranitidine [Zantac -] 150 mg PO BID 03/19/13 Atorvastatin Ca [Lipitor] 40 mg PO HS #30 tablet 11/22/17 Clopidogrel Bisulfate [Plavix -] 75 mg PO DAILY #30 tablet 11/22/17 Lisinopril [Prinivil] 10 mg PO DAILY #60 tablet 11/22/17 Albuterol 2.5/Ipratropium 0.5 1 neb IH QID 04/02/19 [Duoneb -] Budesonide 1 neb IH DAILY 04/03/19 Ipratropium/Albuterol Sulfate 3 ml IH Q4HWA 04/03/19 [Iprat-Albut 0.5-3(2.5) mg/3 ml] Cefuroxime Axetil [Ceftin -] 500 mg PO BID #10 tablet 04/04/19 Metoprolol Succinate [Toprol XL -] 50 mg PO BID #60 tab.sr.24h 04/04/19 Polyethylene Glycol 3350 [Miralax 17 gm PO DAILY #1 bottle 04/04/19 119 gm Btl -] Tamsulosin HCl 0.4 mg PO DAILY 09/23/19 ASSESSMENT/PLAN: 79 y/o M, pmh COPD, CVA (Right sided residual), CAD, HTN, HLD, s/p CABG x3, Carotid Stent x2 (02/13), Peg Tube w/removal, 4.5 lung nodule RLL posteriorly, presents to the ED c/o of [id number] associated w/ worsening productive cough admitted for COPD exacerbation #COPD exacerbation likely 2/2 to noncompliance to meds CXR- hyperinflation w/ no infiltrates Dounebs Albuterol PRN Abx d/nicolás Budesonide/Fometerol Fumarate 80/4.5 mcg Prednisone 60mg daily PO #Hyperbili nor resolved T-bili trending down Direct bili- .3- mildly above normal, will monitor for now RUQ neg Bladder scan ordered-pending #HTN metoprolol 50 BID lisinopril 10 #CAD s/p stentx2 former Smoker EKG shows NSR, LAD, IRBBB and ST-T wave changes suggestive of lateral ischemai - unchanged from prior EKGs. Plavix 75 #Lung nodule is suspicious for malignancy, pt is f/u outpt will consider pulmonary consult in am #HLD Lipitor #DVT prophylaxis Lovenox 40 mg SQ q 24 hours. Dispo: cont steriod, dounebs, albuterol, O2 if needed, consider Dr. Grant consult for lung nodule Visit type - Emergency Visit Emergency Visit: Yes ED Registration Date: 09/22/19 Care time: The patient presented to the Emergency Department on the above date and was hospitalized for further evaluation of their emergent condition. - New Patient This patient is new to me today: Yes Date on this admission: 09/24/19 - Critical Care Critical Care patient: No - Discharge Referral Referred to [facility] No ATTENDING PHYSICIAN STATEMENT I saw and evaluated the patient. I reviewed the resident's note and discussed the case with the resident. I agree with the resident's findings and plan as documented. SUBJECTIVE: OBJECTIVE: ASSESSMENT AND PLAN:
[2019-09-23] MEDS: predniSONE 20 MG TABLET (UD) PO SCH (17:55)
[2019-09-23] MEDS: ATORVASTATIN CA 40 MG TABLET (FP) PO SCH (21:28)
[2019-09-24] MEDS: ALBUTEROL SO4 2.5/IPRATROPIUM 0.5 INH SOL 3 ML VIAL.NEB. NEB SCH ×7 (00:36→23:55)
[2019-09-24 08:23] LABS: HEMATOCRIT 39.1 % (35.4-49); HEMOGLOBIN 13.2 GM/dL (11.7-16.9); MCH 28.6 pg (25.7-33.7); MCHC 33.9 g/dl (32.0-35.9); MEAN CELL VOLUME 84.3 fl (80-96); MEAN PLT VOLUME 8.9 fl (7.5-11.1); PLATELET COUNT 175 K/MM3 (134-434); RBC 4.63 M/mm3 (4.00-5.60); RDW 14.1 % (11.9-15.9); WHITE BLOOD COUNT 8.9 K/mm3 (4.0-10.0)
[2019-09-24 08:39] LABS: ALBUMIN 3.1 g/dl (3.4-5.0); BILIRUBIN,TOTAL 0.8 mg/dL (0.2-1); BLOOD UREA NITROGEN 18.9 mg/dL (7-18); CREATININE 0.8 mg/dL (0.55-1.3); POTASSIUM 4.7 mmol/L (3.5-5.1); TOT PROT 5.8 g/dl (6.4-8.2)
--- NOTE | 2019-09-24 08:54 | PN ---
Teaching Attending Note Name of Resident: Johnny Ambrocio ATTENDING PHYSICIAN STATEMENT I saw and evaluated the patient. I reviewed the resident's note and discussed the case with the resident. I agree with the resident's findings and plan as documented. Seen and examined; please see resident note for further historical information. I personally verified all [place] historical information and exam findings. Personally interpreted all imaging and diagnostics and reviewed appropriate consults. I reviewed all labs and vital signs as per resident note and EMR as documented. I agree with the above assessment and plan unless supplemented by myself in the following. Seen and examined, no new complaints. Pending old records. 10 item review of systems completed and is negative aside from as discussed in the subjective data in my own/the resident documentation. VS, labs, imaging reviewed NAD, AAO, resting comfortably in bed. RRR s1/2 no mgr Normal muscle tone, moves all 5 extremities with normal apparent strength Neck is supple, trachea midline, no mike LN Lungs CTAB with sym expansion NT ND +BS no mike organomegaly CN2-12 wnl; no new focal neurologic deficits with prior right-sided deficits noted NC AT EOMI PERRLA Normal mood, appropriate behavior, euthymic affect No skin breakdown or rashes noted CT of the abdomen shows enlarged prostate with constipation but no acute process evident. Right upper quadrant ultrasound shows fatty liver, small right renal cyst, no stones or cholecystitis noted. Echocardiogram 2019 reviewed, shows mildly reduced LVEF with mild hypokinesis of the said left ventricle Assessment and plan: Patient remains on the medicine service, we are following up the patient with a bilirubin obtaining a direct bilirubin and trending her CMP and continuing to treat him for COPD exacerbation. Problems include: Abdominal pain, negative imaging thus far, may be referred. Continue to monitor serial exams. Follow-up direct bilirubin. Follow-up CMP. Hyperbilirubinemia as above Enlarged prostate, starting tamsulosin COPD exacerbation, continue steroids, nebs, as needed O2. Wean as tolerated keeping saturations above 92%. History of systolic CHF, LVEF is mildly reduced on prior imaging. Will check BNP and monitor clinical fluid status. Could contribute to shortness of breath , obviously Full code
--- NOTE | 2019-09-24 08:54 | PN ---
Teaching Attending Note Name of Resident: Johnny Ambrocio ATTENDING PHYSICIAN STATEMENT I saw and evaluated the patient. I reviewed the resident's note and discussed the case with the resident. I agree with the resident's findings and plan as documented. ATTENDING PHYSICIAN STATEMENT I saw and evaluated the patient. I reviewed the resident's note and discussed the case with the resident. I agree with the resident's findings and plan as documented. Seen and examined; please see resident note for further historical information. I personally verified all [place] historical information and exam findings. Personally interpreted all imaging and diagnostics and reviewed appropriate consults. I reviewed all labs and vital signs as per resident note and EMR as documented. I agree with the above assessment and plan unless supplemented by myself in the following. His shortness of breath is somewhat improved; He was noted to have runs of Nonsustained SVT on telemetry that were under 30 seconds. Pending BNP, given his history of heart failure and the run on telemetry, will uptitrate his metoprolol slightly and consult his building services coordinator.Currently in normal sinus rhythm without any issues today 10 item review of systems completed and is negative aside from as discussed in the subjective data in my own/the resident documentation. VS, labs, imaging reviewed NAD, AAO, resting comfortably in bed. RRR s1/2 no mgr Normal muscle tone, moves all 5 extremities with normal apparent strength Neck is supple, trachea midline, no mike LN Lungs CTAB with sym expansion NT ND +BS no mike organomegaly CN2-12 wnl; no new focal neurologic deficits with prior right-sided deficits noted NC AT EOMI PERRLA Normal mood, appropriate behavior, euthymic affect No skin breakdown or rashes noted CT of the abdomen shows enlarged prostate with constipation but no acute process evident. Right upper quadrant ultrasound shows fatty liver, small right renal cyst, no stones or cholecystitis noted. Echocardiogram 2019 reviewed, shows mildly reduced LVEF with mild hypokinesis of the said left ventricle Assessment and plan: Respiratory status is improved with the patient saturating 100% on 2 L, weaning down, did have a run of nonsustained supraventricular tachycardia last night so we will go ahead and follow-up with cardiology recommendations. Uptitrating metoprolol. Problems include: Abdominal pain, improved negative imaging thus far, may be referred. Hyperbilirubinemia as above; Slightly elevated direct bilirubin. Differential is suspicious for items such as Gilbert's disease, chronic process. No frankly acute issues and patient may be followed up outpatient with gastroenterology. Enlarged prostate, starting tamsulosin COPD exacerbation, Improved, continue steroids, nebs, as needed O2. Wean as tolerated keeping saturations above 92%. History of systolic CHF, LVEF is mildly reduced on prior imaging. Will check BNP and monitor clinical fluid status. Could contribute to shortness of breath , obviously Full code
[2019-09-24] MEDS: LISINOPRIL 10 MG TABLET (FP) PO SCH (09:36)
[2019-09-24] MEDS: TAMSULOSIN HCL 0.4 MG CAP PO SCH (09:36)
[2019-09-24] MEDS: predniSONE 20 MG TABLET (UD) PO SCH (09:36)
[2019-09-24] MEDS: FAMOTIDINE 20 MG TABLET PO SCH ×2 (09:36→21:48)
[2019-09-24] MEDS: CLOPIDOGREL BISULFATE 75 MG TABLET (FP) PO SCH (09:36)
[2019-09-24] MEDS: ENOXAPARIN NA (PORCINE) 40 MG/0.4 ML DISP.SYRIN SQ SCH (09:37)
[2019-09-24] MEDS: POLYETHYLENE GLYCOL 3350 119 GM BTL PO SCH (09:37)
[2019-09-24] MEDS ORDERED: FUROSEMIDE 40 MG/4 ML INJECTABLE VIAL IVPUSH ONE (09:58)
[2019-09-24] MEDS ORDERED: metoPROLOL SUCCINATE 25 MG TAB.SR.24H (FP) PO ONE (10:37)
[2019-09-24 11:05] LABS: N-TERMINAL BNP 359.8 pg/ml (5-450)
--- NOTE | 2019-09-24 11:28 | CON.CARD ---
Consult Consult Specialty:: Cardiology Referred by:: Hospitalist Medicine Reason for Consultation:: NSVT - History of Present Illness Chief Complaint: Dyspnea, abd pain History of Present Illness: 79 y/o M w/PMH of [place] s/p CABG and stents (4 years ago), carotid artery stenosis s/p stent, CVA w/some R sided weakness (2012), COPD, HTN, HLD, medication noncompliance presents to the ER for 1 week of diffuse abdominal pain and 1 day of SOB, 2 days of no bowel movement which is unusual for him, tolerating oral intake. States after episodes of pain, patient usually ends up having a COPD exacerbation. Patient reported to have increased work of breathing last night and today, coughing with yellow sputum production and associated vomiting. Patient used Budesonide and Albuterol however he ran out of home Duonebs 2 weeks ago. Denies fever, chills, chest pain, back pain, recent travel or calf tenderness. Denies alcohol, tobacco or illicit drug use. No sick contacts. - History Source History Provided By: Patient Limitations to Obtaining History: No Limitations - Past Medical History Cardio/Vascular: Yes: CAD, HTN, Hyperlipdemia Pulmonary: Yes: COPD - Past Surgical History Past Surgical History: Yes: CABG, Stent - Alcohol/Substance Use Hx Alcohol Use: No - Smoking History Smoking history: Never smoked Have you smoked in the past 12 months: No Aproximately how many cigarettes per day: 0 If you are a former smoker, when did you quit?: over 20 years ago Home Medications - Allergies Allergies/Adverse Reactions: Allergies Allergy/AdvReac Type Severity Reaction Status Date / Time No Known Allergies Allergy Verified 09/22/19 14:03 - Home Medications Home Medications: Ambulatory Orders Ranitidine [Zantac -] 150 mg PO BID 03/19/13 Atorvastatin Ca [Lipitor] 40 mg PO HS #30 tablet 11/22/17 Clopidogrel Bisulfate [Plavix -] 75 mg PO DAILY #30 tablet 11/22/17 Lisinopril [Prinivil] 10 mg PO DAILY #60 tablet 11/22/17 Albuterol 2.5/Ipratropium 0.5 [Duoneb -] 1 neb IH QID 04/02/19 Budesonide 1 neb IH DAILY 04/03/19 Ipratropium/Albuterol Sulfate [Iprat-Albut 0.5-3(2.5) mg/3 ml] 3 ml IH Q4HWA 09/21 Cefuroxime Axetil [Ceftin -] 500 mg PO BID #10 tablet 04/04/19 Metoprolol Succinate [Toprol XL -] 50 mg PO BID #60 tab.sr.24h 04/04/19 Polyethylene Glycol 3350 [Miralax 119 gm Btl -] 17 gm PO DAILY #1 bottle Tamsulosin HCl 0.4 mg PO DAILY 09/23/19 Review of Systems - Review of Systems Respiratory: reports: SOB, SOB on Exertion Gastrointestinal: reports: Abdominal Pain Vital Signs: Vital Signs Temperature 98 F 09/24/19 10:00 Pulse Rate 80 09/24/19 10:00 Respiratory Rate 18 09/24/19 10:00 Blood Pressure 147/77 09/24/19 10:00 O2 Sat by Pulse Oximetry (%) 100 09/24/19 09:00 Constitutional: Yes: No Distress, Calm, Thin Neck: Yes: Supple Respiratory: Yes: Regular, Diminished, On Nasal O2 Gastrointestinal: Yes: Normal Bowel Sounds, Soft Cardiovascular: Yes: Regular Rate and Rhythm JVD: No Carotid Bruit: No Heart Sounds: Yes: S1, S2 Murmur: Yes: Systolic Murmur, Grade 1 Edema: No - Other Data Labs, Other Data: CBC, BMP 09/24/19 06:08 09/24/19 06:08 INR, PTT INR 1.17 (0.83-1.09) H 09/22/19 15:15 Troponin, BNP 09/23/19 09/24/19 06:52 06:08 Troponin I 0.03 B-Natriuretic Peptide 359.8 Troponin, BNP 09/23/19 09/24/19 06:52 06:08 Troponin I 0.03 B-Natriuretic Peptide 359.8 NSR @ 97 IRBBB, LAD Tele: NSR occ PVC Ejection Fraction %: LVEF > or = 40 % Imaging - Results Chest X-ray: Report Reviewed (NAD) Cat Scan: Report Reviewed (No acute abd pathology) Ultrasound: Report Reviewed (Fatty liver w/o cholelithiasis or cholecystitis) Problem List - Problems (1) COPD (chronic obstructive pulmonary disease) Code(s): J44.9 - CHRONIC OBSTRUCTIVE PULMONARY DISEASE, UNSPECIFIED Qualifiers: COPD type: unspecified COPD Qualified Code(s): J44.9 - Chronic obstructive pulmonary disease, unspecified (2) Medication noncompliance due to cognitive impairment Code(s): Z91.14 - PATIENT'S OTHER NONCOMPLIANCE WITH MEDICATION REGIMEN (3) S/P coronary artery stent placement Code(s): Z95.5 - PRESENCE OF CORONARY ANGIOPLASTY IMPLANT AND GRAFT (4) CAD (coronary artery disease) Code(s): I25.10 - ATHSCL HEART DISEASE OF [place] CORONARY ARTERY W/O ANG PCTRS Qualifiers: Coronary Disease-Associated Artery/Lesion type: [place] artery [place] vs. transplanted heart: [place] heart Associated angina: without angina Qualified Code(s): I25.10 - Atherosclerotic heart disease of [place] coronary artery without angina pectoris (5) HLD (hyperlipidemia) Code(s): E78.5 - HYPERLIPIDEMIA, UNSPECIFIED Qualifiers: Hyperlipidemia type: pure hypercholesterolemia Qualified Code(s): E78.00 - Pure hypercholesterolemia, unspecified; E78.0 - Pure hypercholesterolemia (6) HTN (hypertension) Code(s): I10 - ESSENTIAL (PRIMARY) HYPERTENSION Qualifiers: Hypertension type: essential hypertension Qualified Code(s): I10 - Essential (primary) hypertension (7) History of stroke with residual deficit Code(s): I69.30 - UNSPECIFIED SEQUELAE OF CEREBRAL INFARCTION (8) Hx of angina pectoris Code(s): Z86.79 - PERSONAL HISTORY OF OTHER DISEASES OF THE CIRCULATORY SYSTEM (9) S/P CABG (coronary artery bypass graft) Code(s): Z95.1 - PRESENCE OF AORTOCORONARY BYPASS GRAFT Assessment/Plan 04/03/2019 Echo: Mild decreased LVEF 45-50%, normal RV size and fxn, tr TR 1. AE COPD 2. NSVT 3. CAD s/p [place], CABG, PCI (stent), angina pectoris 4. Mild systolic dysfunction 3. Carotid stenosis post stent 4. Stroke with w/some R sided weakness (2012) 6. HTN 7. Hyperlipidemia 8. Medication noncompliance Plan: 1. BD, O2, oral steroids with GI protection, f/u echocardiogram and holter monitor already ordered 2. Resume home meds including Lipitor 40 qhs, lisinopril 10 qd, agree with uptitrating metoporolol 50 bid, Plavix 75 qd 3. Counselled pt on need for medication compliance. verbalized understanding 4. Thank you for consultative opportunity
--- NOTE | 2019-09-24 14:19 | PN ---
Physical Exam: SUBJECTIVE: Patient seen and examined 79 y/o M, pmh COPD, CVA, CAD, HTN, HLD, presents to the ED c/o of [id number] associated w/ worsening productive cough admitted for COPD exacerbation. Pt is much improved today. As per nurse, pt had a short SVT w/ 30 beats that lasted a few seconds at a HR of 124, pt was asymptomatic and asleep when it happened. Pt reported that earlier this morning he was short of breath and was placed on NC O2 at 2.5L. C/o of no pain or issues. Breathing better on RA. Denies f/c/n/v/d/ sob,chest pain, abdominal pain. OBJECTIVE: Vital Signs Period Temp Pulse Resp BP Sys/[place] Pulse Ox Last 24 Hr 97.3 F-98.5 F 59-96 17-18 112-147/71-86 88-100 GENERAL: The patient is awake, alert, and fully oriented, in no acute distress. EYES: PERRL, extraocular movements intact, sclera anicteric, conjunctiva clear. No ptosis. ENT: Dry mucous membranes. NECK: Trachea midline, full range of motion, supple. LUNGS: Breath sounds equal, clear to auscultation bilaterally, moderate wheezes b/l, no crackles, HEART: Regular rate and rhythm, S1, S2 without murmur, rub or gallop. ABDOMEN: Soft, nontender, nondistended, normoactive bowel sounds, no guarding EXTREMITIES: 2+ pulses, warm, well-perfused, no edema. NEUROLOGICAL: Cranial nerves II through XII grossly intact. Normal speech, gait not observed. PSYCH: Normal mood, normal affect. SKIN: Extensive psoriasis- scaling and peeling of the skin over the entire surface of the body. No open wounds, no exposed subcutaneous skin. No bleeding, no ulcers. Laboratory Results - last 24 hr 09/23/19 09/24/19 09/24/19 06:52 06:08 06:08 WBC 8.9 RBC 4.63 Hgb 13.2 Hct 39.1 MCV 84.3 MCH 28.6 MCHC 33.9 RDW 14.1 Plt Count 175 MPV 8.9 Sodium 140 Potassium 4.7 Chloride 107 Carbon Dioxide 28 Anion Gap 6 L BUN 18.9 H Creatinine 0.8 Est GFR (CKD-EPI)AfAm 97.78 Est GFR (CKD-EPI)NonAf 84.37 Random Glucose 129 H Calcium 8.0 L Total Bilirubin 0.8 Direct Bilirubin 0.3 H AST 24 ALT 30 Alkaline Phosphatase 61 B-Natriuretic Peptide 359.8 Total Protein 5.8 L Albumin 3.1 L Active Medications Current Medications Albuterol Sulfate (Ventolin 0.083% Nebulizer Soln -) 1 amp NEB Q4H PRN PRN Reason: SHORT OF BREATH/WHEEZING Albuterol/Ipratropium (Duoneb -) 1 amp NEB RQ4H [facility] Last Admin: 09/24/19 11:10 Dose: 1 amp Atorvastatin Calcium (Lipitor -) 40 mg PO HS [facility] Last Admin: 09/23/19 21:28 Dose: 40 mg Clopidogrel Bisulfate (Plavix -) 75 mg PO DAILY [facility] Last Admin: 09/24/19 09:36 Dose: 75 mg Enoxaparin Sodium (Lovenox -) 40 mg SQ DAILY [facility] Last Admin: 09/24/19 09:37 Dose: 40 mg Famotidine (Pepcid -) 20 mg PO BID [facility] Last Admin: 09/24/19 09:36 Dose: 20 mg Lisinopril (Prinivil) 10 mg PO DAILY [facility] Last Admin: 09/24/19 09:36 Dose: 10 mg Metoprolol Succinate (Toprol Xl -) 50 mg PO [facility] Metoprolol Succinate (Toprol Xl -) 50 mg PO BID [facility] Polyethylene Glycol (Miralax (For Daily Use) -) 17 gm PO DAILY [facility] Last Admin: 09/24/19 09:37 Dose: 17 grams Prednisone (Deltasone -) 60 mg PO DAILY [facility] Last Admin: 09/24/19 09:36 Dose: 60 mg Tamsulosin HCl (Flomax -) 0.4 mg PO DAILY@0830 [facility] Last Admin: 09/24/19 09:36 Dose: 0.4 mg Home Medications Medication Instructions Recorded Ranitidine [Zantac -] 150 mg PO BID 03/19/13 Atorvastatin Ca [Lipitor] 40 mg PO HS #30 tablet 11/22/17 Clopidogrel Bisulfate [Plavix -] 75 mg PO DAILY #30 tablet 11/22/17 Lisinopril [Prinivil] 10 mg PO DAILY #60 tablet 11/22/17 Albuterol 2.5/Ipratropium 0.5 1 neb IH QID 04/02/19 [Duoneb -] Budesonide 1 neb IH DAILY 04/03/19 Ipratropium/Albuterol Sulfate 3 ml IH Q4HWA 04/03/19 [Iprat-Albut 0.5-3(2.5) mg/3 ml] Cefuroxime Axetil [Ceftin -] 500 mg PO BID #10 tablet 04/04/19 Metoprolol Succinate [Toprol XL -] 50 mg PO BID #60 tab.sr.24h 04/04/19 Polyethylene Glycol 3350 [Miralax 17 gm PO DAILY #1 bottle 04/04/19 119 gm Btl -] Tamsulosin HCl 0.4 mg PO DAILY 09/23/19 Microbiology 09/22/19 19:50 Urine - Urine Clean Catch Urine Culture - Final NO GROWTH OBTAINED ASSESSMENT/PLAN: 79 y/o M, pmh COPD, CVA (Right sided residual), CAD, HTN, HLD, s/p CABG x3, Carotid Stent x2 (02/13), Peg Tube w/removal, 4.5 lung nodule RLL posteriorly, presents to the ED c/o of [id number] associated w/ worsening productive cough admitted for COPD exacerbation #COPD exacerbation likely 2/2 to noncompliance to meds Dounebs Albuterol PRN Budesonide/Fometerol Fumarate d/nicolás Prednisone 60mg daily PO Pre an dpost pt failed- desaturated to 88 off O2 Pt sating at 98 off O2 #Hyperbili now resolved Bladder scan ordered-114 prevoid, pt is urinating #HTN metoprolol 50 BID lisinopril 10 #CAD s/p stentx2 former Smoker Plavix 75 ECHO pending Holter monitoring #Lung nodule is suspicious for malignancy, pt is f/u outpt will consider pulmonary consult in am Chest CT pending read #HLD Lipitor #DVT prophylaxis Lovenox 40 mg SQ q 24 hours. Dispo: cont steriod, dounebs, albuterol, CT chest f/u, ECHO f/u, on holter, consider Dr. Grant consult for lung nodule Visit type - Emergency Visit Emergency Visit: Yes ED Registration Date: 09/22/19 Care time: The patient presented to the Emergency Department on the above date and was hospitalized for further evaluation of their emergent condition. - New Patient This patient is new to me today: Yes Date on this admission: 09/24/19 - Critical Care Critical Care patient: No - Discharge Referral Referred to [facility] Med [facility] No ATTENDING PHYSICIAN STATEMENT I saw and evaluated the patient. I reviewed the resident's note and discussed the case with the resident. I agree with the resident's findings and plan as documented. SUBJECTIVE: OBJECTIVE: ASSESSMENT AND PLAN:
[2019-09-24] MEDS: ATORVASTATIN CA 40 MG TABLET (FP) PO SCH (21:48)
[2019-09-25] MEDS: ALBUTEROL SO4 2.5/IPRATROPIUM 0.5 INH SOL 3 ML VIAL.NEB. NEB SCH ×5 (05:15→20:10)
[2019-09-25 07:51] LABS: HEMOGLOBIN 13.7 GM/dL (11.7-16.9); MCH 28.4 pg (25.7-33.7); MCHC 33.4 g/dl (32.0-35.9); MEAN CELL VOLUME 85.1 fl (80-96); MEAN PLT VOLUME 8.6 fl (7.5-11.1); PLATELET COUNT 197 K/MM3 (134-434); RBC 4.82 M/mm3 (4.00-5.60); RDW 14.2 % (11.9-15.9); WHITE BLOOD COUNT 9.5 K/mm3 (4.0-10.0)
[2019-09-25 08:22] LABS: ALBUMIN 3.2 g/dl (3.4-5.0); BILIRUBIN,TOTAL 0.6 mg/dL (0.2-1); CALCIUM 8.3 mg/dL (8.5-10.1); MAGNESIUM 2.2 mg/dL (1.8-2.4); POTASSIUM 4.1 mmol/L (3.5-5.1); TOT PROT 6.2 g/dl (6.4-8.2)
--- NOTE | 2019-09-25 08:52 | PN ---
Teaching Attending Note Name of Resident: Johnny Ambrocio ATTENDING PHYSICIAN STATEMENT I saw and evaluated the patient. I reviewed the resident's note and discussed the case with the resident. I agree with the resident's findings and plan as documented. Seen and examined; please see resident note for further historical information. I personally verified all [place] historical information and exam findings. Personally interpreted all imaging and diagnostics and reviewed appropriate consults. I reviewed all labs and vital signs as per resident note and EMR as documented. I agree with the above assessment and plan unless supplemented by myself in the following. Seen and examined, no events overnight. Agree with resident subjective information. Seen by cardiology yesterday who recommended follow-up echocardiogram and Holter monitor and resuming home medications including Lipitor lisinopril. They agreed with up titration of the metoprolol and Plavix. BNP was within normal limits indicating that this is likely not a cardiac related event with the shortness of breath. 10 item review of systems completed and is negative aside from as discussed in the subjective data in my own/the resident documentation. VS, labs, imaging reviewed NAD, AAO, resting comfortably in bed. RRR s1/2 no mgr Normal muscle tone, moves all 5 extremities with normal apparent strength Neck is supple, trachea midline, no mike LN Lungs CTAB with sym expansion NT ND +BS no mike organomegaly CN2-12 wnl; no FND NC AT EOMI PERRLA Normal mood, appropriate behavior, euthymic affect No skin breakdown or rashes noted Telemetry reviewed, cardiology consultation reviewed. Labs within normal limits this morning. ASSESSMENT AND PLAN: Patient is currently saturating well, heart rate improved, cardiology saw the patient agreed with recommendations. On home medications. Hemodynamically stable and afebrile. Prepping for discharge. Problems include: Abdominal pain, improved, may be referred, negative imaging thus far Hyperbilirubinemia. Stable, may follow-up outpatient with PCP versus gastroenterology Enlarged prostate on tamsulosin negative UA COPD exacerbation, improved on p.o. steroids and nebs. Keeping saturations above 92%. Systolic CHF history with current euvolemic state, BNP is within normal limits and patient is clinically within a euvolemic exam. We will continue to monitor on the floor NSVT improved Carotid artery stenosis status post stent History of CVA with residual right-sided weakness in 2012 History of hypertension History of hyperlipidemia History of medication noncompliance History of coronary artery disease status post myocardial infarction, CABG, stent Full code
[2019-09-25] MEDS: predniSONE 20 MG TABLET (UD) PO SCH (09:12)
[2019-09-25] MEDS: TAMSULOSIN HCL 0.4 MG CAP PO SCH (09:12)
[2019-09-25] MEDS: FAMOTIDINE 20 MG TABLET PO SCH ×2 (09:13→21:35)
[2019-09-25] MEDS: CLOPIDOGREL BISULFATE 75 MG TABLET (FP) PO SCH (09:13)
[2019-09-25] MEDS: ENOXAPARIN NA (PORCINE) 40 MG/0.4 ML DISP.SYRIN SQ SCH (09:13)
[2019-09-25] MEDS: POLYETHYLENE GLYCOL 3350 119 GM BTL PO SCH (09:13)
--- NOTE | 2019-09-25 10:22 | PN ---
Progress Note, Physician History of Present Illness: Abd pain resolved, tolerating diet, denies chest pain or dyspnea or palpitations , freq PVC on telemetry. - Current Medication List Current Medications: Active Medications Albuterol Sulfate (Ventolin 0.083% Nebulizer Soln -) 1 amp NEB Q4H PRN PRN Reason: SHORT OF BREATH/WHEEZING Albuterol/Ipratropium (Duoneb -) 1 amp NEB RQ4H [facility] Last Admin: 09/25/19 08:00 Dose: 1 amp Atorvastatin Calcium (Lipitor -) 40 mg PO HS [facility] Last Admin: 09/24/19 21:48 Dose: 40 mg Clopidogrel Bisulfate (Plavix -) 75 mg PO DAILY [facility] Last Admin: 09/25/19 09:13 Dose: 75 mg Enoxaparin Sodium (Lovenox -) 40 mg SQ DAILY [facility] Last Admin: 09/25/19 09:13 Dose: 40 mg Famotidine (Pepcid -) 20 mg PO BID [facility] Last Admin: 09/25/19 09:13 Dose: 20 mg Lisinopril (Prinivil) 10 mg PO DAILY [facility] Last Admin: 09/24/19 09:36 Dose: 10 mg Metoprolol Succinate (Toprol Xl -) 50 mg PO BID [facility] Last Admin: 09/25/19 09:13 Dose: 50 mg Polyethylene Glycol (Miralax (For Daily Use) -) 17 gm PO DAILY [facility] Last Admin: 09/25/19 09:13 Dose: 17 grams Prednisone (Deltasone -) 60 mg PO DAILY [facility] Last Admin: 09/25/19 09:12 Dose: 60 mg Tamsulosin HCl (Flomax -) 0.4 mg PO DAILY@0830 [facility] Last Admin: 09/25/19 09:12 Dose: 0.4 mg - Objective Vital Signs: Vital Signs Temperature 97.7 F 09/25/19 09:40 Pulse Rate 84 09/25/19 09:40 Respiratory Rate 22 H 09/25/19 09:40 Blood Pressure 115/74 09/25/19 09:40 O2 Sat by Pulse Oximetry (%) 96 09/25/19 09:00 Constitutional: Yes: No Distress, Calm Neck: Yes: Supple Cardiovascular: Yes: Regular Rate and Rhythm Respiratory: Yes: Regular, Diminished Gastrointestinal: Yes: Normal Bowel Sounds, Soft Edema: No Labs: CBC, BMP 09/25/19 06:40 09/25/19 06:40 INR, PTT INR 1.17 (0.83-1.09) H 09/22/19 15:15 - ....Imaging EKG: Report Reviewed (Tele: BETZAIDA freshauna PVC) Problem List - Problems (1) COPD (chronic obstructive pulmonary disease) Code(s): J44.9 - CHRONIC OBSTRUCTIVE PULMONARY DISEASE, UNSPECIFIED Qualifiers: COPD type: unspecified COPD Qualified Code(s): J44.9 - Chronic obstructive pulmonary disease, unspecified (2) Medication noncompliance due to cognitive impairment Code(s): Z91.14 - PATIENT'S OTHER NONCOMPLIANCE WITH MEDICATION REGIMEN (3) S/P coronary artery stent placement Code(s): Z95.5 - PRESENCE OF CORONARY ANGIOPLASTY IMPLANT AND GRAFT (4) CAD (coronary artery disease) Code(s): I25.10 - ATHSCL HEART DISEASE OF [place] CORONARY ARTERY W/O ANG PCTRS Qualifiers: Coronary Disease-Associated Artery/Lesion type: [place] artery [place] vs. transplanted heart: [place] heart Associated angina: without angina Qualified Code(s): I25.10 - Atherosclerotic heart disease of [place] coronary artery without angina pectoris (5) HLD (hyperlipidemia) Code(s): E78.5 - HYPERLIPIDEMIA, UNSPECIFIED Qualifiers: Hyperlipidemia type: pure hypercholesterolemia Qualified Code(s): E78.00 - Pure hypercholesterolemia, unspecified; E78.0 - Pure hypercholesterolemia (6) HTN (hypertension) Code(s): I10 - ESSENTIAL (PRIMARY) HYPERTENSION Qualifiers: Hypertension type: essential hypertension Qualified Code(s): I10 - Essential (primary) hypertension (7) History of stroke with residual deficit Code(s): I69.30 - UNSPECIFIED SEQUELAE OF CEREBRAL INFARCTION (8) Hx of angina pectoris Code(s): Z86.79 - PERSONAL HISTORY OF OTHER DISEASES OF THE CIRCULATORY SYSTEM (9) S/P CABG (coronary artery bypass graft) Code(s): Z95.1 - PRESENCE OF AORTOCORONARY BYPASS GRAFT Assessment/Plan 09/25/2019 Mod dilated with mod decreased LV fxn, normal RV size and fxn, tr TR 09/24/2019 Holter: Freq PVC, 3 beats NSVT, rare PAC 04/03/2019 Echo: Mild decreased LVEF 45-50%, normal RV size and fxn, tr TR 1. AE COPD improving 2. NSVT 3. CAD s/p [place], CABG, PCI (stent), angina pectoris 4. Mod systolic dysfunction, euvolemic 3. Carotid stenosis post stent 4. Stroke with w/some R sided weakness (2012) 6. HTN 7. Hyperlipidemia 8. Medication noncompliance Plan: 1. BD, O2, oral steroids with GI protection 2. Continue Lipitor 40 qhs, lisinopril 10 qd, agree with uptitrating metoporolol 50 bid, Plavix 75 qd 3. Counselled pt on need for medication compliance
[2019-09-25] MEDS ORDERED: metoPROLOL SUCCINATE 25 MG TAB.SR.24H (FP) PO ONE (12:30)
[2019-09-25] MEDS: LISINOPRIL 10 MG TABLET (FP) PO SCH (13:08)
--- NOTE | 2019-09-25 14:08 | ECHO ---
Name: URSULA MONACO Exam:Adult Echocardiogram Study Date: 09/25/2019 10:17 AM Age: 79 yrs Height: 63 in Weight: 118 lb BSA: 1.5 m2 MMode/2D Measurements & Calculations LVLd ap4: 7.8 cm SV(MOD-sp4): 49.0 ml EDV(MOD-sp4): 124.0 ml LVLs ap4: 7.0 cm ESV(MOD-sp4): 75.0 ml RV S Binu: 11.7 cm/sec Doppler Measurements & Calculations MV E max binu: 44.2 cm/sec Ao V2 max: 103.9 cm/sec MV A max binu: 71.8 cm/sec Ao max P.3 mmHg MV E/A: 0.62 MV dec time: 0.14 sec LV V1 max P.3 mmHg Med Peak E' Binu: 4.7 cm/sec LV V1 max: 56.8 cm/sec Med E/e': 9.4 Lat Peak E' Binu: 6.4 cm/sec Lat E/e': 6.9 Procedure A complete two-dimensional transthoracic echocardiogram was performed (2D, M-mode, Doppler and color flow Doppler). The study was technically difficult with many images being suboptimal in quality. Left Ventricle The left ventricle is moderately dilated. Left ventricular systolic function is moderately reduced. E jection Fraction = 35-40%. There is moderate global hypokinesis of the left ventricle. Right Ventricle The right ventricle is normal in size and function. Atria Normal left and right atrial size and function. Mitral Valve There is no mitral regurgitation noted. Tricuspid Valve There is trace tricuspid regurgitation. There was insufficient TR detected to calculate RV systolic p ressure. Aortic Valve No hemodynamically significant valvular aortic stenosis. No aortic regurgitation is present. Pulmonic Valve The pulmonic valve is not well visualized. Great Vessels The aortic root is not well visualized. Pericardium/Pleura There is no pericardial effusion. Interpretation Summary The study was technically difficult with many images being suboptimal in quality. The left ventricle is moderately dilated. Left ventricular systolic function is moderately reduced. There is moderate global hypokinesis of the left ventricle. The right ventricle is normal in size and function. There is trace tricuspid regurgitation. MD Lance Craft 09/25/2019 02:08 PM
--- NOTE | 2019-09-25 15:07 | HOL ---
Hook-up date: 2019-09-24 12:23:00 Duration: 24:00:00 Test Indications: SVT Medications: [id number] QRS complexes 03882 Ventricular ectopics which represent 8 % of total QRS comp. 40 Supraventricular ectopics which represent <1 % of total QRS comp. * Paced QRS complexs which represent % of total QRS comp. * % of Time Classified as Noise VENTRICULAR ECTOPY 24865 Isolated 9 Bigeminal Cycles 54 Couplets 1 Runs 3 Beats in Runs 3 Beats LONGEST at 93 BPM at 07:03:22 2019-09-25 3 Beats FASTEST at 93 BPM at 07:03:22 2019-09-25 SUPRAVENTRICULAR ECTOPY 37 Isolated 0 Couplets 1 Runs 3 Beats in Runs 3 Beats LONGEST at 189 BPM at 01:53:20 2019-09-25 3 Beats FASTEST at 189 BPM at 01:53:20 2019-09-25 HEART RATES 51 MIN at 05:32:00 2019-09-25 90 AVG 143 MAX at 00:31:20 2019-09-25 LONGEST RR 1.400 secs at 23:06:07 2019-09-24 SCANNED BY PAMELA WELSH ON 09/25/19 1. Baseline sinus with avg hr 90, range 51-143. 2. No significant bradycardia/pauses. 3. Frequent isolated pvcs. One run nsvt (3 beats). 4. Rare pacs. One atrial run (3 beats). 5. No vf, afib, aflutter. 6. No diary submitted. Confirmed by TERRY NIEVES, GURVINDER ([id number]) on 09/25/2019 3:06:43 PM Referred By: ROLAND KANG DR Overread By: GURVINDER STEWART MD
[2019-09-25] MEDS ORDERED: PT OWN MED DRAWER 7, Y5N ONE (15:46)
--- NOTE | 2019-09-25 17:10 | PN ---
Physical Exam: SUBJECTIVE: Patient seen and examined Pt is asymptomatic and afebrile today. No overnight events. Tolerating diet. C/ o of no pain or issues. Breathing better on RA. Denies f/c/n/v/d/sob,chest pain , abdominal pain. OBJECTIVE: Vital Signs Period Temp Pulse Resp BP Sys/[place] Pulse Ox Last 24 Hr 97.4 F-98.2 F 84-96 18-22 115-166/71-95 96-99 GENERAL: The patient is awake, alert, and fully oriented, in no acute distress. EYES: PERRL, extraocular movements intact, sclera anicteric, conjunctiva clear. No ptosis. ENT: Dry mucous membranes. NECK: Trachea midline, full range of motion, supple. LUNGS: Breath sounds equal, clear to auscultation bilaterally, no wheezing, no crackles, HEART: Regular rate and rhythm, S1, S2 without murmur, rub or gallop. ABDOMEN: Soft, nontender, nondistended, normoactive bowel sounds, no guarding EXTREMITIES: 2+ pulses, warm, well-perfused, no edema. NEUROLOGICAL: Cranial nerves II through XII grossly intact. Normal speech, gait not observed. PSYCH: Normal mood, normal affect. SKIN: Extensive psoriasis- scaling and peeling of the skin over the entire surface of the body. No open wounds, no exposed subcutaneous skin. No bleeding, no ulcers. Laboratory Results - last 24 hr 09/25/19 09/25/19 06:40 06:40 WBC 9.5 RBC 4.82 Hgb 13.7 Hct 41.0 MCV 85.1 MCH 28.4 MCHC 33.4 RDW 14.2 Plt Count 197 MPV 8.6 Sodium 143 Potassium 4.1 Chloride 106 Carbon Dioxide 30 Anion Gap 6 L BUN 20.0 H Creatinine 1.0 Est GFR (CKD-EPI)AfAm 82.02 Est GFR (CKD-EPI)NonAf 70.77 Random Glucose 91 Calcium 8.3 L Magnesium 2.2 Total Bilirubin 0.6 AST 24 ALT 31 Alkaline Phosphatase 63 Total Protein 6.2 L Albumin 3.2 L Active Medications Generic Name Dose Route Start Last Admin Trade Name Freq PRN Reason Stop Dose Admin Albuterol Sulfate 1 amp 09/23/19 15:48 Ventolin 0.083% Nebulizer Soln - NEB Q4H PRN SHORT OF BREATH/WHEEZING Albuterol/Ipratropium 1 amp 09/23/19 00:15 09/25/19 16:00 Duoneb - NEB 1 amp RQ4H MARANDA Administration Atorvastatin Calcium 40 mg 09/23/19 22:00 09/24/19 21:48 Lipitor - PO 40 mg HS MARANDA Administration Clopidogrel Bisulfate 75 mg 09/23/19 10:00 09/25/19 09:13 Plavix - PO 75 mg DAILY MARANDA Administration Enoxaparin Sodium 40 mg 09/23/19 10:00 09/25/19 09:13 Lovenox - SQ 40 mg DAILY MARANDA Administration Famotidine 20 mg 09/23/19 10:00 09/25/19 09:13 Pepcid - PO 20 mg BID MARANDA Administration Lisinopril 10 mg 09/23/19 10:00 09/25/19 13:08 Prinivil PO 10 mg DAILY MARANDA Administration Metoprolol Succinate 75 mg 09/26/19 07:00 Toprol Xl - PO AM MARANDA Metoprolol Succinate 50 mg 09/25/19 22:00 Toprol Xl - PO HS [facility] Polyethylene Glycol 17 gm 09/23/19 10:00 09/25/19 09:13 Miralax (For Daily Use) - PO 17 grams DAILY MARANDA Administration Prednisone 60 mg 09/23/19 16:00 09/25/19 09:12 Deltasone - PO 60 mg DAILY MARANDA Administration Tamsulosin HCl 0.4 mg 09/23/19 08:30 09/25/19 09:12 Flomax - PO 0.4 mg DAILY@0830 MARANDA Administration ASSESSMENT/PLAN: 79 y/o M, pmh COPD, CVA (Right sided residual), CAD, HTN, HLD, s/p CABG x3, Carotid Stent x2 (02/13), Peg Tube w/removal, 4.5 lung nodule RLL posteriorly, presents to the ED c/o of [id number] associated w/ worsening productive cough admitted for COPD exacerbation #COPD exacerbation likely 2/2 to noncompliance to meds Dounebs Albuterol PRN Budesonide/Fometerol Fumarate d/nicolás Prednisone 60mg daily PO Pt sating at 98 off O2 Pt on Home oxygen Discussed with Dr. Fajardo, waiting for feedback for discharge #HTN metoprolol 75mg am and 50mg HS lisinopril 10 #CAD s/p stentx2 former Smoker Plavix 75 ECHO- EF 35-40 Holter monitoring- pending results PVCs noted overnight on tele #Lung nodule is suspicious for malignancy, pt is f/u outpt #HLD Lipitor #DVT prophylaxis Lovenox 40 mg SQ q 24 hours. Dispo: cont steriod, dounebs, albuterol, f/u with Dr. Fajardo for discharge Visit type - Emergency Visit Emergency Visit: Yes ED Registration Date: 09/22/19 Care time: The patient presented to the Emergency Department on the above date and was hospitalized for further evaluation of their emergent condition. - New Patient This patient is new to me today: Yes Date on this admission: 09/26/19 - Critical Care Critical Care patient: No - Discharge Referral Referred to [facility] Med [facility].C[facility] No ATTENDING PHYSICIAN STATEMENT I saw and evaluated the patient. I reviewed the resident's note and discussed the case with the resident. I agree with the resident's findings and plan as documented. SUBJECTIVE: OBJECTIVE: ASSESSMENT AND PLAN:
[2019-09-25] MEDS: ATORVASTATIN CA 40 MG TABLET (FP) PO SCH (21:36)
[2019-09-26] MEDS: ALBUTEROL SO4 2.5/IPRATROPIUM 0.5 INH SOL 3 ML VIAL.NEB. NEB SCH ×4 (01:08→12:28)
[2019-09-26 07:15] LABS: HEMATOCRIT 41.5 % (35.4-49); HEMOGLOBIN 13.9 GM/dL (11.7-16.9); MCH 28.7 pg (25.7-33.7); MCHC 33.6 g/dl (32.0-35.9); MEAN CELL VOLUME 85.6 fl (80-96); MEAN PLT VOLUME 8.8 fl (7.5-11.1); PLATELET COUNT 204 K/MM3 (134-434); RBC 4.85 M/mm3 (4.00-5.60); WHITE BLOOD COUNT 10.7 K/mm3 (4.0-10.0)
[2019-09-26 07:44] LABS: ALBUMIN 3.2 g/dl (3.4-5.0); BILIRUBIN,TOTAL 0.6 mg/dL (0.2-1); BLOOD UREA NITROGEN 24.9 mg/dL (7-18); CALCIUM 8.2 mg/dL (8.5-10.1); CREATININE 0.9 mg/dL (0.55-1.3); POTASSIUM 4.1 mmol/L (3.5-5.1); TOT PROT 6.2 g/dl (6.4-8.2)
[2019-09-26] MEDS: CLOPIDOGREL BISULFATE 75 MG TABLET (FP) PO SCH (09:39)
[2019-09-26] MEDS: TAMSULOSIN HCL 0.4 MG CAP PO SCH (09:39)
[2019-09-26] MEDS: ENOXAPARIN NA (PORCINE) 40 MG/0.4 ML DISP.SYRIN SQ SCH (09:39)
[2019-09-26] MEDS: FAMOTIDINE 20 MG TABLET PO SCH (09:39)
[2019-09-26] MEDS: LISINOPRIL 10 MG TABLET (FP) PO SCH (09:40)
[2019-09-26] MEDS: predniSONE 20 MG TABLET (UD) PO SCH (09:40)
[2019-09-26] MEDS: POLYETHYLENE GLYCOL 3350 119 GM BTL PO SCH (09:40)
--- NOTE | 2019-09-26 10:38 | PN ---
Progress Note, Physician History of Present Illness: Ambulating in hallway with PT assistance, denies chest pain or dyspnea or palpitations, freq PVC on telemetry. - Current Medication List Current Medications: Active Medications Albuterol Sulfate (Ventolin 0.083% Nebulizer Soln -) 1 amp NEB Q4H PRN PRN Reason: SHORT OF BREATH/WHEEZING Albuterol/Ipratropium (Duoneb -) 1 amp NEB RQ4H [facility] Last Admin: 09/26/19 07:00 Dose: 1 amp Atorvastatin Calcium (Lipitor -) 40 mg PO HS [facility] Last Admin: 09/25/19 21:36 Dose: 40 mg Clopidogrel Bisulfate (Plavix -) 75 mg PO DAILY [facility] Last Admin: 09/26/19 09:39 Dose: 75 mg Enoxaparin Sodium (Lovenox -) 40 mg SQ DAILY [facility] Last Admin: 09/26/19 09:39 Dose: 40 mg Famotidine (Pepcid -) 20 mg PO BID [facility] Last Admin: 09/26/19 09:39 Dose: 20 mg Lisinopril (Prinivil) 10 mg PO DAILY [facility] Last Admin: 09/26/19 09:40 Dose: 10 mg Metoprolol Succinate (Toprol Xl -) 75 mg PO AM [facility] Last Admin: 09/26/19 06:19 Dose: 75 mg Metoprolol Succinate (Toprol Xl -) 50 mg PO HS [facility] Last Admin: 09/25/19 21:35 Dose: 50 mg Polyethylene Glycol (Miralax (For Daily Use) -) 17 gm PO DAILY [facility] Last Admin: 09/26/19 09:40 Dose: 17 grams Prednisone (Deltasone -) 60 mg PO DAILY [facility] Last Admin: 09/26/19 09:40 Dose: 60 mg Tamsulosin HCl (Flomax -) 0.4 mg PO DAILY@0830 [facility] Last Admin: 09/26/19 09:39 Dose: 0.4 mg - Objective Vital Signs: Vital Signs Temperature 98.8 F 09/26/19 09:00 Pulse Rate 92 H 09/26/19 09:00 Respiratory Rate 20 09/26/19 09:00 Blood Pressure 189/107 H 09/26/19 09:00 O2 Sat by Pulse Oximetry (%) 97 09/25/19 20:46 Constitutional: Yes: No Distress, Calm, Thin Neck: Yes: Supple Cardiovascular: Yes: Regular Rate and Rhythm Respiratory: Yes: Regular, CTA Bilaterally Gastrointestinal: Yes: Normal Bowel Sounds, Soft Edema: No Labs: CBC, BMP 09/26/19 05:40 09/26/19 05:40 INR, PTT INR 1.17 (0.83-1.09) H 09/22/19 15:15 - ....Imaging EKG: Report Reviewed (Tele: NSR occ PVC) Problem List - Problems (1) COPD (chronic obstructive pulmonary disease) Code(s): J44.9 - CHRONIC OBSTRUCTIVE PULMONARY DISEASE, UNSPECIFIED Qualifiers: COPD type: unspecified COPD Qualified Code(s): J44.9 - Chronic obstructive pulmonary disease, unspecified (2) Medication noncompliance due to cognitive impairment Code(s): Z91.14 - PATIENT'S OTHER NONCOMPLIANCE WITH MEDICATION REGIMEN (3) S/P coronary artery stent placement Code(s): Z95.5 - PRESENCE OF CORONARY ANGIOPLASTY IMPLANT AND GRAFT (4) CAD (coronary artery disease) Code(s): I25.10 - ATHSCL HEART DISEASE OF [place] CORONARY ARTERY W/O ANG PCTRS Qualifiers: Coronary Disease-Associated Artery/Lesion type: [place] artery [place] vs. transplanted heart: [place] heart Associated angina: without angina Qualified Code(s): I25.10 - Atherosclerotic heart disease of [place] coronary artery without angina pectoris (5) HLD (hyperlipidemia) Code(s): E78.5 - HYPERLIPIDEMIA, UNSPECIFIED Qualifiers: Hyperlipidemia type: pure hypercholesterolemia Qualified Code(s): E78.00 - Pure hypercholesterolemia, unspecified; E78.0 - Pure hypercholesterolemia (6) HTN (hypertension) Code(s): I10 - ESSENTIAL (PRIMARY) HYPERTENSION Qualifiers: Hypertension type: essential hypertension Qualified Code(s): I10 - Essential (primary) hypertension (7) History of stroke with residual deficit Code(s): I69.30 - UNSPECIFIED SEQUELAE OF CEREBRAL INFARCTION (8) Hx of angina pectoris Code(s): Z86.79 - PERSONAL HISTORY OF OTHER DISEASES OF THE CIRCULATORY SYSTEM (9) S/P CABG (coronary artery bypass graft) Code(s): Z95.1 - PRESENCE OF AORTOCORONARY BYPASS GRAFT Assessment/Plan 09/25/2019 Mod dilated with mod decreased LV fxn, normal RV size and fxn, tr TR 09/24/2019 Holter: Freq PVC, 3 beats NSVT, rare PAC 04/03/2019 Echo: Mild decreased LVEF 45-50%, normal RV size and fxn, tr TR 1. AE COPD improving 2. NSVT 3. CAD s/p [place], CABG, PCI (stent), angina pectoris 4. Mod systolic dysfunction, euvolemic 3. Carotid stenosis post stent 4. Stroke with w/some R sided weakness (2012) 6. HTN, BP not at goal control 7. Hyperlipidemia 8. Medication noncompliance Plan: 1. BD, O2, oral steroid taper with GI protection 2. Continue Lipitor 40 qhs, lisinopril 10 qd, increase metoporolol 100 bid, Plavix 75 qd 3. Counselled pt on need for medication compliance
--- NOTE | 2019-09-26 11:31 | PN ---
Teaching Attending Note Name of Resident: Johnny Ambrocio Seen and examined, no events overnight. Agree with resident subjective information. Seen by cardiology yesterday who recommended follow-up echocardiogram and Holter monitor and resuming home medications including Lipitor lisinopril. They agreed with up titration of the metoprolol and Plavix. BNP was within normal limits indicating that this is likely not a cardiac related event with the shortness of breath. Clear for DC; complete BD taper. CV recs noted Agree with hospital course and followup as per resident ntoe. 10 item review of systems completed and is negative aside from as discussed in the subjective data in my own/the resident documentation. VS, labs, imaging reviewed NAD, AAO, resting comfortably in bed. RRR s1/2 no mgr Normal muscle tone, moves all 5 extremities with normal apparent strength Neck is supple, trachea midline, no mike LN Lungs CTAB with sym expansion NT ND +BS no mike organomegaly CN2-12 wnl; no FND NC AT EOMI PERRLA Normal mood, appropriate behavior, euthymic affect No skin breakdown or rashes noted Telemetry reviewed, cardiology consultation reviewed. Labs within normal limits this morning. ASSESSMENT AND PLAN: Patient is currently saturating well, heart rate improved, cardiology saw the patient agreed with recommendations. On home medications. Hemodynamically stable and afebrile. Prepping for discharge. Problems include: Abdominal pain, improved, may be referred, negative imaging thus far Hyperbilirubinemia. Stable, may follow-up outpatient with PCP versus gastroenterology Enlarged prostate on tamsulosin negative UA COPD exacerbation, improved on p.o. steroids and nebs. Keeping saturations above 92%. Systolic CHF history with current euvolemic state, BNP is within normal limits and patient is clinically within a euvolemic exam. We will continue to monitor on the floor NSVT improved Carotid artery stenosis status post stent History of CVA with residual right-sided weakness in 2012 History of hypertension History of hyperlipidemia History of medication noncompliance History of coronary artery disease status post myocardial infarction, CABG, stent
--- NOTE | 2019-09-26 13:42 | DS ---
Physical Exam: SUBJECTIVE: Patient seen and examined. Pt is asymptomatic and afebrile today. No overnight events. Tolerating diet. C/o of no pain or issues. Breathing better on RA. Received one breathing treatment before d/c. Denies f/c/n/v/d/sob, chest pain, abdominal pain. OBJECTIVE: Vital Signs Period Temp Pulse Resp BP Sys/[place] Pulse Ox Last 24 Hr 97.4 F-98.8 F 85-92 20-20 153-189/78-107 97-97 PHYSICAL EXAM GENERAL: The patient is awake, alert, and fully oriented, in no acute distress. EYES: PERRL, extraocular movements intact, sclera anicteric, conjunctiva clear. No ptosis. ENT: Dry mucous membranes. NECK: Trachea midline, full range of motion, supple. LUNGS: Breath sounds equal, clear to auscultation bilaterally, no wheezing, no crackles, HEART: Regular rate and rhythm, S1, S2 without murmur, rub or gallop. ABDOMEN: Soft, nontender, nondistended, normoactive bowel sounds, no guarding EXTREMITIES: 2+ pulses, warm, well-perfused, no edema. PSYCH: Normal mood, normal affect. SKIN: Extensive psoriasis- scaling and peeling of the skin over the entire surface of the body. No open wounds, no exposed subcutaneous skin. No bleeding, no ulcers. LABS Laboratory Results - last 24 hr 09/26/19 09/26/19 05:40 05:40 WBC 10.7 H RBC 4.85 Hgb 13.9 Hct 41.5 MCV 85.6 MCH 28.7 MCHC 33.6 RDW 14.0 Plt Count 204 MPV 8.8 Sodium 144 Potassium 4.1 Chloride 109 H Carbon Dioxide 28 Anion Gap 7 L BUN 24.9 H Creatinine 0.9 Est GFR (CKD-EPI)AfAm 93.16 Est GFR (CKD-EPI)NonAf 80.38 Random Glucose 99 Calcium 8.2 L Total Bilirubin 0.6 AST 26 ALT 36 Alkaline Phosphatase 66 Total Protein 6.2 L Albumin 3.2 L HOSPITAL COURSE: Date of Admission:09/22/19 79 y/o M, pmh COPD, CVA (Right sided residual), CAD, HTN, HLD, s/p CABG x3, Carotid Stent x2 (02/13), Peg Tube w/removal, 4.5 lung nodule RLL posteriorly, presents to the ED c/o of [id number] associated w/ worsening productive cough admitted for COPD exacerbation. Pt was started on dounebs, budesonide, Solumedrol 40mg Q8, Azithromycin 500mg OD to decrease inflammation and O2 on nc 2.5L. Pt began to improve significantly and steroids was switched to PO prednisone. Pt was also found to have tachycardiac and hypertensive and his home dose of metoprolol was up titrated to 100 BID. Pt was weaned off oxygen and was oxygenating at 98%. Cardiology was consulted and pt was placed on holter monitor for a brief episode of SVTs overnight, 30 beats w/ no symptoms, pt slept through the episode. Pt was discharged home on dounebs, symbicort, lipitor, asa, lisinopril 10 qd, Plavix 75, Metoprolol 100 BID, and prednisone 60mg one more dose for one more day. Pt was also sent home with referral for pulmonology, Dr Grant, his specialist for surveillance of Lung nodule. CXR- hyperinflation w/ no infiltrates CT PA: BB poorly visualized, minimal dilatation of pancreatic duct(enlarged prostate, rt renal cyst on pole 1.9cm, evidence of constipation, small bladder diverticulae) distended urinary bladder with diverticula, moderate stool collection and enlarged prostate EKG shows NSR, LAD, IRBBB and ST-T wave changes suggestive of lateral ischemia with no significant changes compared to prior EKG 09/25/2019 Mod dilated with mod decreased LV fxn, normal RV size and fxn, tr TR 09/24/2019 Holter: Freq PVC, 3 beats NSVT, rare PAC 04/03/2019 Echo: Mild decreased LVEF 45-50%, normal RV size and fxn, tr TR Date of Discharge: 09/26/19 Minutes to complete discharge: 40 Discharge Summary Problems reviewed: Yes Reason For Visit: CHRONIC OBSTRUCTIVE PULMONARY DISEASE Current Active Problems COPD (chronic obstructive pulmonary disease) (Chronic) Condition: Improved - Instructions Diet, Activity, Other Instructions: You were admitted to the hospital for difficulty breathing While in the hospital, we evaluated you with lab work, blood work, imaging including X rays of your chest and CAT scans of your abdominal. We found that your symptoms were caused by an exacerbation of your COPD. We treated you with medications and your symptoms improved significantly. We also found a lung nodule on the CAT scan of your lungs, which has been there for some time now. You will need to follow up with the cms expert. To complete the treatment of your COPD exacerbation, please take the following medications, Prednisone 60 mg for one more day starting tomorrow We made some adjustments to your medications; Please START taking Metoprolol 100 mg tablets two times a day Please continue taking Lisinopril 10mg daily Please continue taking Plavix 75 daily Please continue taking Lasix 20mg daily Please continue taking Lipitor 40 at night daily Please continue taking Dounebs and Albuterol Continue using your Home Oxygen as needed Please continue taking all your medications as prescribed Please follow up with the ice cutter, Dr. Fajardo, within 1 week to follow up the results of your Echocardiogram that we had done in the hospital. Please also follow up with Dr. Grant, the Supervisor [employer] for further investigation of the Lung nodule found on CAT scan of your lungs Please follow up with your Primary Care Physician Dr. Caruso, within 1 week Return to the emergency room, if you experience worsening of your symptoms, chest pains, shortness of breath or any worsening of your condition. Referrals: Philip Grant MD [Staff Physician] - 1 Week Dago Caruso MD [Primary Care Provider] - 1 Week Blayne Campbell MD [Staff Physician] - 1 Week Disposition: HOME - Home Medications Comprehensive Discharge Medication List: Ambulatory Orders Ranitidine [Zantac -] 150 mg PO BID 03/19/13 Atorvastatin Ca [Lipitor] 40 mg PO HS #30 tablet 11/22/17 Clopidogrel Bisulfate [Plavix -] 75 mg PO DAILY #30 tablet 11/22/17 Lisinopril [Prinivil] 10 mg PO DAILY #60 tablet 11/22/17 Albuterol 2.5/Ipratropium 0.5 [Duoneb -] 1 neb IH QID 04/02/19 Budesonide 1 neb IH DAILY 04/03/19 Polyethylene Glycol 3350 [Miralax 119 gm Btl -] 17 gm PO DAILY #1 bottle Tamsulosin HCl 0.4 mg PO DAILY 09/23/19 Metoprolol Succinate [Toprol Xl] 100 mg PO BID #60 tab.er.24h 09/26/19 predniSONE [Deltasone -] 60 mg PO DAILY 1 Days #3 tablet 09/26/19 This patient is new to me today: Yes Date on this admission: 09/26/19 Emergency Visit: Yes ED Registration Date: 09/22/19 Care time: The patient presented to the Emergency Department on the above date and was hospitalized for further evaluation of their emergent condition. Critical Care patient: No - Discharge Referral Referred to [facility] Med [facility].C.: No ATTENDING PHYSICIAN STATEMENT I saw and evaluated the patient. I reviewed the resident's note and discussed the case with the resident. I agree with the resident's findings and plan as documented. SUBJECTIVE: OBJECTIVE: ASSESSMENT AND PLAN:
[2019-09-26 14:44] VITALS: BP 136/64; PULSE 86; TEMP 98.2
[2019-09-26] MEDS ORDERED: metoPROLOL SUCCINATE 25 MG TAB.SR.24H (FP) PO SCH (22:00)
== END 2019-09-26 14:51 | disposition home or self-care (01) | DRG 191 ==
LOC: JER 13:55 → SUPCPDRO 13:55 → JERBED 22:56 → J4W 09-23 16:11
PROVIDERS: ADMIT Internal Medicine; ATTEND Internal Medicine
DX: J44.1 Chronic obstructive pulmonary disease with (acute) exacerbation (principal); I69.351 Hemiplegia and hemiparesis following cerebral infarction affecting right dominant side; I24.8 Other forms of acute ischemic heart disease; I47.2 Ventricular tachycardia; I50.22 Chronic systolic (congestive) heart failure; I25.2 Old myocardial infarction; I65.29 Occlusion and stenosis of unspecified carotid artery; I11.0 Hypertensive heart disease with heart failure; E78.5 Hyperlipidemia, unspecified; L40.9 Psoriasis, unspecified; I25.10 Atherosclerotic heart disease of native coronary artery without angina pectoris; E80.6 Other disorders of bilirubin metabolism; R31.9 Hematuria, unspecified; I45.10 Unspecified right bundle-branch block; N40.0 Benign prostatic hyperplasia without lower urinary tract symptoms; K59.09 Other constipation; N28.1 Cyst of kidney, acquired; N32.3 Diverticulum of bladder; R91.1 Solitary pulmonary nodule; K76.0 Fatty (change of) liver, not elsewhere classified; I25.119 Atherosclerotic heart disease of native coronary artery with unspecified angina pectoris; Z91.14 Patient's other noncompliance with medication regimen; Z95.1 Presence of aortocoronary bypass graft
CPT/HCPCS: 36415; 71045-TC-FY; 74177-TC; 76705-TC; 80048; 80053; 81003; 82247; 82248; 82550; 82553; 82962; 83690; 83735; 83880; 84484; 85025; 85027; 85610; 87086; 87804; 93005; 93010; 93225; 93226; 93306-TC; 94640; 94761; 97116-GP; 97161-GP; 99285-25; Q9967

== ENCOUNTER 2020-11-14 14:07 | Emergency (ER) | payer OTHER ==
[2020-11-14 14:14] VITALS: BMI 21.6
[2020-11-14 16:00] LABS: BASO % 0.5 % (0-2.0); HEMATOCRIT 43.1 % (35.4-49); HEMOGLOBIN 14.3 GM/dL (11.7-16.9); LYMPH % 22.2 % (8-40); MCH 28.3 pg (25.7-33.7); MCHC 33.1 g/dl (32.0-35.9); MEAN CELL VOLUME 85.7 fl (80-96); MEAN PLT VOLUME 9.3 fl (7.5-11.1); MONO % 18.1 % (3.8-10.2); NEUT % 59.2 % (42.8-82.8); PLATELET COUNT 120 K/MM3 (134-434); RBC 5.03 M/mm3 (4.00-5.60); RDW 15.1 % (11.9-15.9); WHITE BLOOD COUNT 5.6 K/mm3 (4.0-10.0)
[2020-11-14 16:32] LABS: POTASSIUM 3.7 mmol/L (3.5-5.1)
[2020-11-14 16:34] LABS: CALCIUM 8.2 mg/dL (8.5-10.1)
[2020-11-14 16:35] LABS: ALBUMIN 3.5 g/dl (3.4-5.0); BLOOD UREA NITROGEN 17.9 mg/dL (7-18)
[2020-11-14 16:38] LABS: CREATININE 1.1 mg/dL (0.55-1.3)
[2020-11-14 16:39] LABS: BILIRUBIN,TOTAL 0.9 mg/dL (0.2-1); TOT PROT 6.9 g/dl (6.4-8.2)
[2020-11-14] MEDS ORDERED: SODIUM CHLORIDE 500 ML IV STA (16:40)
[2020-11-14 16:47] LABS: VENOUS BASE EXCESS 2.7 mmol/L (-2-2); VENOUS O2 SATURATION 31.1 % (70-80); VENOUS PH 7.385 (7.310-7.410)
[2020-11-14 18:30] LABS: EPI CELLS >36 /uL (0-25.1); HYALINE CASTS 4 /uL (0-3.1); PH,URINE 5.5 (5.0-8.0); URINE APPEARANCE CLEAR; URINE BACTERIA 1418 /uL (0-1359); URINE BILIRUBIN NEGATIVE (NEGATIVE); URINE COLOR YELLOW; URINE GLUCOSE (UA) NEGATIVE (NEGATIVE); URINE KETONE NEGATIVE (NEGATIVE); URINE LEUK ESTERASE NEGATIVE (NEGATIVE); URINE NITRITE NEGATIVE (NEGATIVE); URINE PROTEIN 3+ (NEGATIVE); URINE RBC 8 /uL (0-23.9); URINE UROBILINOGEN 0.2 mg/dL (0.2-1.0); URINE WBC 46 /uL (0-25.8)
[2020-11-14 20:06] VITALS: BP 133/72; PULSE 78; TEMP 98.4
== END 2020-11-14 19:30 | disposition home or self-care (01) ==
LOC: JER 14:07
DX: N45.1 Epididymitis (principal)
CPT/HCPCS: 36415; 71045-TC-FY; 76870-TC; 80053; 81003; 82803; 85025; 87077; 87086; 93005; 93010; 99284-25